=== PATIENT | male | born 1965 | race Caucasian/White ===

== ENCOUNTER 2017-10-22 13:00 | Inpatient (IN) ==
[2017-10-22] MEDS ORDERED: ONDANSETRON 4 MG/2 ML VIAL IV PRN (13:13)
[2017-10-22] MEDS ORDERED: ZALEPLON 5 MG CAPSULE PO PRN (13:13)
[2017-10-22] MEDS ORDERED: diphenhydrAMINE CAP 25 MG CAPSULE PO PRN (13:13)
[2017-10-22] MEDS ORDERED: MAGNESIUM SULF RIDER 2 GM in PREMIX 1 EACH IV PRN (13:16)
[2017-10-22] MEDS ORDERED: POTASSIUM CHLORIDE 20 MEQ TABLET PO PRN (13:16)
[2017-10-22] MEDS ORDERED: MAGNESIUM SULF RIDER 4 GM in PREMIX 1 EACH IV PRN (13:16)
[2017-10-22] MEDS ORDERED: hydrALAZINE 20 MG/1 ML VIAL IV PRN (13:18)
[2017-10-22] MEDS ORDERED: SPIRONOLACTONE 25 MG TABLET PO SCH (15:00)
[2017-10-22] MEDS ORDERED: BISACODYL 5 MG TABLET PO PRN (16:33)
[2017-10-22] MEDS ORDERED: ACETAMINOPHEN 325 MG TABLET PO PRN (16:33)
[2017-10-22] MEDS: hydrALAZINE 10 MG TABLET PO SCH ×2 (17:30→20:13)
[2017-10-22] MEDS: FUROSEMIDE 40 MG/4 ML VIAL IV SCH (17:31)
[2017-10-22 17:35] LABS: Calcium 8.5 MG/DL (8.5-10.1); Osmolality,Calculated 273.8 MOS/KG (273-304); Potassium 4.5 MMOL/L (3.5-5.1); Risk Ratio 2.46; Thyroid Stimulating Hormone 2.82 uIU/ml (0.358-3.74); VLDL CHOLESTEROL 34.6 MG/DL
[2017-10-22 18:40] LABS: Basophils % 0.3 % (0.0-0.8); Eosinophils # 0.1 10*3/uL (0.0-0.87); Eosinophils % 0.9 % (0.00-10.9); Hematocrit 40.2 VOL% (42.0-52.0); Hemoglobin 12.7 GM/DL (14.0-18.0); Immature Granulocytes Absolute 0.28 #; Lymphocytes # 2.9 10*3/uL (1.4-4.0); Lymphocytes % 21.1 % (21.2-54.2); Mean Corpuscular HGB Conc 31.6 GM/DL (32-36); Mean Corpuscular Hemoglobin 30 PG (27-34); Mean Platelet Volume 10.8 FL (9.6-12.0); Monocytes # 1.2 10*3/uL (0.11-0.8); Monocytes % 8.7 % (1.7-12.7); Neutrophils # 9.3 10*3/uL (1.4-7.4); Platelet Count 355 T/CUMM (130-400); Red Blood Count 4.23 MC/CUMM (3.8-5.5); White Blood Count 13.9 T/CUMM (4-12)
[2017-10-22] MEDS: CARVEDILOL 6.25 MG TABLET PO SCH (20:14)
[2017-10-22] MEDS ORDERED: ENOXAPARIN 40 MG/0.4 ML SYRINGE SUBCUT SCH (21:00)
[2017-10-23 05:47] LABS: Calcium 8.1 MG/DL (8.5-10.1); Osmolality,Calculated 279.4 MOS/KG (273-304); Potassium 5.3 MMOL/L (3.5-5.1)
[2017-10-23] MEDS: ALBUTEROL/IPRATROPIUM 3 ML NEB RESP TX SCH ×4 (07:36→19:50)
[2017-10-23] MEDS: NICOTINE 21 MG/24 HR PATCH TRANSDERM PRN (09:42)
[2017-10-23] MEDS: AZITHROMYCIN 250 MG TABLET PO SCH (09:43)
[2017-10-23] MEDS: metOLazone 5 MG TABLET PO SCH (09:43)
[2017-10-23] MEDS: hydrALAZINE 10 MG TABLET PO SCH ×3 (09:44→20:33)
[2017-10-23] MEDS: CARVEDILOL 6.25 MG TABLET PO SCH ×2 (09:44→20:33)
[2017-10-23] MEDS: PANTOPRAZOLE 40 MG TABLET PO SCH (09:44)
[2017-10-23] MEDS: ASPIRIN CHEW 81 MG TABLET PO SCH (09:44)
[2017-10-23] MEDS: predniSONE 20 MG TABLET PO SCH (09:44)
[2017-10-23] MEDS: FUROSEMIDE 40 MG/4 ML VIAL IV SCH ×2 (09:47→15:20)
[2017-10-24] MEDS: ALBUTEROL/IPRATROPIUM 3 ML NEB RESP TX SCH ×6 (00:16→19:03)
[2017-10-24 05:59] LABS: Basophils % 0.2 % (0.0-0.8); Eosinophils # 0.2 10*3/uL (0.0-0.87); Eosinophils % 1.6 % (0.00-10.9); Hematocrit 43.7 VOL% (42.0-52.0); Hemoglobin 13.9 GM/DL (14.0-18.0); Immature Granulocytes % 1.3 %; Immature Granulocytes Absolute 0.17 #; Lymphocytes # 2.8 10*3/uL (1.4-4.0); Lymphocytes % 21.4 % (21.2-54.2); Mean Corpuscular HGB Conc 31.8 GM/DL (32-36); Mean Corpuscular Hemoglobin 30 PG (27-34); Mean Corpuscular Volume 92.8 FL (87-102); Mean Platelet Volume 10.4 FL (9.6-12.0); Monocytes % 7.7 % (1.7-12.7); Neutrophils % 67.8 % (38.7-73.9); Platelet Count 336 T/CUMM (130-400); Red Blood Count 4.71 MC/CUMM (3.8-5.5); Red Cell Distribution Width 14.2 % (9.3-17.3); White Blood Count 13.2 T/CUMM (4-12)
[2017-10-24 06:17] LABS: Calcium 8.4 MG/DL (8.5-10.1); Osmolality,Calculated 278.7 MOS/KG (273-304); Potassium 4.1 MMOL/L (3.5-5.1)
[2017-10-24] MEDS ORDERED: diphenhydrAMINE CAP 25 MG CAPSULE PO ONE (06:33)
[2017-10-24] MEDS ORDERED: DIAZEPAM 5 MG TABLET PO ONE (06:33)
[2017-10-24] MEDS: ASPIRIN CHEW 81 MG TABLET PO SCH ×2 (06:48→11:30)
[2017-10-24] MEDS: hydrALAZINE 10 MG TABLET PO SCH ×4 (06:48→22:15)
[2017-10-24] MEDS: PANTOPRAZOLE 40 MG TABLET PO SCH ×2 (06:48→11:53)
[2017-10-24] MEDS: CARVEDILOL 6.25 MG TABLET PO SCH ×3 (06:48→22:15)
[2017-10-24] MEDS ORDERED: fentaNYL 100 MCG/2 ML VIAL ONE (07:19)
[2017-10-24] MEDS ORDERED: MIDAZOLAM 2 MG/2 ML VIAL ONE (07:19)
[2017-10-24] MEDS ORDERED: HEPARIN/NACL 0.9% 2 UNITS/ML 2,000 ML IV ONE (07:57)
[2017-10-24] MEDS ORDERED: LIDOCAINE 1% 20 ML VIAL ONE (07:57)
[2017-10-24] MEDS ORDERED: ASPIRIN EC 81 MG TABLET PO SCH (09:00)
[2017-10-24] MEDS ORDERED: GLUCAGON 1 MG VIAL IM PRN (10:28)
[2017-10-24] MEDS ORDERED: DEXTROSE 50% 25 GM/50 ML VIAL IV PRN (10:28)
[2017-10-24] MEDS ORDERED: NITROGLYCERIN SL 0.4 MG TABLET SL ONE (10:50)
[2017-10-24] MEDS: SODIUM CHLORIDE 0.9% 1,000 ML IV SCH (11:30)
[2017-10-24] MEDS: FUROSEMIDE 40 MG/4 ML VIAL IV SCH ×3 (11:31→16:33)
[2017-10-24] MEDS: AZITHROMYCIN 250 MG TABLET PO SCH (11:47)
[2017-10-24] MEDS: predniSONE 20 MG TABLET PO SCH (11:47)
[2017-10-24 13:39] LABS: Troponin I Only 0.216 NG/ML (0.00-0.045)
[2017-10-24] MEDS: NITROGLYCERIN DRIP 50 MG/250 ML BOTTLE IV SCH (15:22)
[2017-10-24 16:21] LABS: CKMB % 8.9 %; Troponin I Only 0.229 NG/ML (0.00-0.045)
[2017-10-24] MEDS: CLORAZEPATE 3.75 MG TABLET PO SCH ×2 (16:34→22:14)
[2017-10-24] MEDS: NICOTINE 21 MG/24 HR PATCH TRANSDERM PRN (16:47)
[2017-10-24] MEDS ORDERED: NITROGLYCERIN 2% OINT 1 INCH/GM PACK TOP SCH (18:00)
[2017-10-24 18:19] LABS: Troponin I Only 0.203 NG/ML (0.00-0.045)
[2017-10-24] MEDS: ATORVASTATIN 40 MG TABLET PO SCH (22:14)
[2017-10-24] MEDS: CHLORHEXIDINE 0.12% ORAL RINSE 60 ML BOTTLE SWISH/SPIT SCH (22:18)
[2017-10-25] MEDS: ALBUTEROL/IPRATROPIUM 3 ML NEB RESP TX SCH ×7 (00:07→23:43)
[2017-10-25 03:58] LABS: ABG Base Excess 10.3 MMOL/L (-2.5-2.5); ABG HCO3 33.9 MMOL/L (20-26); ABG Oxygen Saturation 94.8 % (95-100); ABG PCO2 51.3 MM HG (35-48); ABG PH 7.457 (7.35-7.45); ABG PO2 72.3 MM HG (80-95); Allen Test Positive
[2017-10-25 06:46] LABS: Basophils % 0.3 % (0.0-0.8); Eosinophils # 0.1 10*3/uL (0.0-0.87); Eosinophils % 0.8 % (0.00-10.9); Hematocrit 42.9 VOL% (42.0-52.0); Hemoglobin 14.3 GM/DL (14.0-18.0); Immature Granulocytes Absolute 0.14 #; Mean Corpuscular HGB Conc 33.3 GM/DL (32-36); Mean Corpuscular Hemoglobin 30 PG (27-34); Mean Corpuscular Volume 88.8 FL (87-102); Mean Platelet Volume 10.6 FL (9.6-12.0); Monocytes % 7.2 % (1.7-12.7); Neutrophils # 9.9 10*3/uL (1.4-7.4); Neutrophils % 69.7 % (38.7-73.9); Platelet Count 341 T/CUMM (130-400); Red Blood Count 4.83 MC/CUMM (3.8-5.5); Red Cell Distribution Width 14.2 % (9.3-17.3); White Blood Count 14.3 T/CUMM (4-12)
[2017-10-25 07:11] LABS: Calcium 8.5 MG/DL (8.5-10.1); Osmolality,Calculated 280.7 MOS/KG (273-304); Potassium 3.7 MMOL/L (3.5-5.1)
[2017-10-25 07:12] LABS: Calcium 8.6 MG/DL (8.5-10.1); Osmolality,Calculated 278.8 MOS/KG (273-304); Potassium 3.7 MMOL/L (3.5-5.1)
[2017-10-25 07:14] LABS: Troponin I Only 0.301 NG/ML (0.00-0.045)
[2017-10-25 07:15] LABS: Albumin 3.4 G/DL (3.4-5.0); Bilirubin,Total 0.9 MG/DL (0.2-1.0); Calcium 8.4 MG/DL (8.5-10.1); Osmolality,Calculated 281.7 MOS/KG (273-304); Potassium 3.7 MMOL/L (3.5-5.1); Total Protein 6.5 G/DL (6.4-8.3)
[2017-10-25] MEDS: FUROSEMIDE 40 MG/4 ML VIAL IV SCH ×2 (07:51→15:44)
[2017-10-25] MEDS: CLORAZEPATE 7.5 MG TABLET PO SCH ×4 (08:13→20:31)
[2017-10-25] MEDS: hydrALAZINE 10 MG TABLET PO SCH ×2 (08:13→15:43)
[2017-10-25] MEDS: AZITHROMYCIN 250 MG TABLET PO SCH (08:13)
[2017-10-25] MEDS: ASPIRIN CHEW 81 MG TABLET PO SCH (08:13)
[2017-10-25] MEDS: predniSONE 20 MG TABLET PO SCH (08:14)
[2017-10-25] MEDS: PANTOPRAZOLE 40 MG TABLET PO SCH (08:14)
[2017-10-25] MEDS: CARVEDILOL 6.25 MG TABLET PO SCH ×2 (08:14→20:31)
[2017-10-25] MEDS: CHLORHEXIDINE 0.12% ORAL RINSE 60 ML BOTTLE SWISH/SPIT SCH ×2 (10:58→20:32)
[2017-10-25] MEDS: SODIUM CHLORIDE 0.9% 1,000 ML IV SCH (10:59)
[2017-10-25] MEDS: NITROGLYCERIN DRIP 50 MG/250 ML BOTTLE IV SCH (15:44)
[2017-10-25] MEDS: hydrALAZINE 25 MG TABLET PO SCH ×2 (15:45→20:31)
[2017-10-25] MEDS: ATORVASTATIN 40 MG TABLET PO SCH (20:31)
[2017-10-26 04:29] LABS: Calcium 7.8 MG/DL (8.5-10.1); Osmolality,Calculated 286.4 MOS/KG (273-304); Potassium 3.5 MMOL/L (3.5-5.1)
[2017-10-26] MEDS: ALBUTEROL/IPRATROPIUM 3 ML NEB RESP TX SCH ×5 (04:36→19:29)
[2017-10-26] MEDS: FUROSEMIDE 40 MG/4 ML VIAL IV SCH ×2 (08:34→15:47)
[2017-10-26] MEDS: CHLORHEXIDINE 0.12% ORAL RINSE 60 ML BOTTLE SWISH/SPIT SCH ×2 (08:35→21:03)
[2017-10-26] MEDS: PANTOPRAZOLE 40 MG TABLET PO SCH (08:35)
[2017-10-26] MEDS: predniSONE 20 MG TABLET PO SCH (08:35)
[2017-10-26] MEDS: CARVEDILOL 6.25 MG TABLET PO SCH ×2 (08:35→21:02)
[2017-10-26] MEDS: CLORAZEPATE 7.5 MG TABLET PO SCH ×4 (08:35→21:02)
[2017-10-26] MEDS: ASPIRIN CHEW 81 MG TABLET PO SCH (08:35)
[2017-10-26] MEDS: hydrALAZINE 25 MG TABLET PO SCH ×3 (08:35→21:02)
[2017-10-26] MEDS: SODIUM CHLORIDE 0.9% 1,000 ML IV SCH (12:11)
[2017-10-26] MEDS: NICOTINE 21 MG/24 HR PATCH TRANSDERM PRN (13:42)
[2017-10-26] MEDS: CHLORHEXIDINE 4% SOLN 118 ML BOTTLE TOP SCH ×2 (15:21→22:52)
[2017-10-26] MEDS: NITROGLYCERIN DRIP 50 MG/250 ML BOTTLE IV SCH (15:21)
[2017-10-26] MEDS: ATORVASTATIN 40 MG TABLET PO SCH (21:02)
[2017-10-27] MEDS: ALBUTEROL/IPRATROPIUM 3 ML NEB RESP TX SCH ×6 (00:18→19:14)
[2017-10-27 03:07] LABS: Allen Test Positive
[2017-10-27 03:08] LABS: ABG Base Excess 10.8 MMOL/L (-2.5-2.5); ABG HCO3 34.5 MMOL/L (20-26); ABG PH 7.412 (7.35-7.45); ABG PO2 75.3 MM HG (80-95); ABG TCO2 33.4 MMOL/L (23-27)
[2017-10-27] MEDS: CHLORHEXIDINE 4% SOLN 118 ML BOTTLE TOP SCH ×2 (05:00→12:46)
[2017-10-27] MEDS ORDERED: PAPAVERINE 60 MG/2 ML VIAL ONE (05:24)
[2017-10-27] MEDS ORDERED: VANCOMYCIN 1,000 MG VIAL ONE (05:25)
[2017-10-27] MEDS ORDERED: ALBUTEROL 2.5 MG/3 ML NEB RESP TX ONE (05:30)
[2017-10-27] MEDS ORDERED: DIAZEPAM 5 MG TABLET PO ONE (05:30)
[2017-10-27] MEDS ORDERED: IPRATROPIUM 500 MCG/2.5 ML NEB RESP TX ONE (05:30)
[2017-10-27 05:31] LABS: Basophils # 0.1 10*3/uL (0.0-0.2); Basophils % 0.4 % (0.0-0.8); Eosinophils # 0.3 10*3/uL (0.0-0.87); Eosinophils % 2.2 % (0.00-10.9); Hematocrit 38.8 VOL% (42.0-52.0); Hemoglobin 12.8 GM/DL (14.0-18.0); Immature Granulocytes % 0.6 %; Immature Granulocytes Absolute 0.08 #; Lymphocytes # 2.4 10*3/uL (1.4-4.0); Lymphocytes % 19.2 % (21.2-54.2); Mean Corpuscular Hemoglobin 30 PG (27-34); Mean Corpuscular Volume 91.5 FL (87-102); Mean Platelet Volume 10.8 FL (9.6-12.0); Neutrophils # 8.7 10*3/uL (1.4-7.4); Neutrophils % 69.6 % (38.7-73.9); Platelet Count 246 T/CUMM (130-400); Red Blood Count 4.24 MC/CUMM (3.8-5.5); Red Cell Distribution Width 14.2 % (9.3-17.3); White Blood Count 12.5 T/CUMM (4-12)
[2017-10-27 05:38] LABS: PT Patient Result 10.3 SECS; Partial Thromboplastin Time 25.5 SECS (0-40)
[2017-10-27] MEDS: hydrALAZINE 25 MG TABLET PO SCH ×2 (05:51→09:00)
[2017-10-27] MEDS: CHLORHEXIDINE 0.12% ORAL RINSE 60 ML BOTTLE SWISH/SPIT SCH ×3 (05:51→23:40)
[2017-10-27] MEDS: CARVEDILOL 6.25 MG TABLET PO SCH ×2 (05:51→09:00)
[2017-10-27] MEDS ORDERED: CEFUROXIME INJ 1,500 MG in SYRINGE 1 EACH IV ONE (06:00)
[2017-10-27 06:02] LABS: Osmolality,Calculated 283.4 MOS/KG (273-304); Potassium 3.5 MMOL/L (3.5-5.1)
[2017-10-27] MEDS ORDERED: SUFentanil 250 MCG/5 ML AMP ONE (06:06)
[2017-10-27] MEDS ORDERED: PANTOPRAZOLE 40 MG VIAL IV ONE (06:30)
[2017-10-27] MEDS ORDERED: PHENYLEPHRINE DRIP 20 MG/250 ML PREMIX IV ONE ×2 (06:50→09:07)
[2017-10-27 07:41] LABS: ABG Base Excess 7.4 MMOL/L (-2.5-2.5); ABG HCO3 31.2 MMOL/L (20-26); ABG PCO2 64.4 MM HG (35-48); ABG PH 7.348 (7.35-7.45); ABG TCO2 31.5 MMOL/L (23-27); Glucose Heart Surgery 105 MG/DL (74-106); Ionized Calcium Arterial 1.12 MMOL/L (1.21-1.46); PCO2 Patient Temp Arterial 64.4 MMHG; PH Patient Temp Arterial 7.348; Patient Temperature 37 CELCIUS; Potassium Heart/CVR 3.2 MMOL/L (3.5-5.1); Sodium Heart/CVR 138 MMOL/L (135-145)
[2017-10-27] MEDS: FUROSEMIDE 40 MG/4 ML VIAL IV SCH (08:00)
[2017-10-27] MEDS ORDERED: PHENYLEPHRINE DRIP 40 MG/250 ML PREMIX IV ONE (08:11)
[2017-10-27] MEDS ORDERED: NITROPRUSSIDE 50 MG/2 ML VIAL ONE (08:11)
[2017-10-27] MEDS ORDERED: POTASSIUM CHLORIDE RIDER 100 ML IV ONE (08:12)
[2017-10-27] MEDS ORDERED: CALCIUM CHLORIDE 1,000 MG/10 ML SYRINGE IV ONE (08:12)
[2017-10-27] MEDS: ASPIRIN CHEW 81 MG TABLET PO SCH (09:00)
[2017-10-27] MEDS: PANTOPRAZOLE 40 MG TABLET PO SCH (09:00)
[2017-10-27] MEDS: predniSONE 20 MG TABLET PO SCH (09:00)
[2017-10-27] MEDS: CLORAZEPATE 7.5 MG TABLET PO SCH (09:00)
[2017-10-27] MEDS ORDERED: CALCIUM CHLORIDE 1,000 MG/10 ML VIAL IV ONE (09:07)
[2017-10-27] MEDS ORDERED: VECURONIUM 10 MG VIAL IV ONE (09:08)
[2017-10-27] MEDS ORDERED: HEPARIN/NACL 0.9% 2 UNITS/ML 1,000 ML IV ONE (09:08)
[2017-10-27] MEDS ORDERED: NITROGLYCERIN DRIP 50 MG/250 ML BOTTLE IV ONE (09:08)
[2017-10-27] MEDS ORDERED: MIDAZOLAM 10 MG/2 ML VIAL ONE (09:08)
[2017-10-27] MEDS ORDERED: ETOMIDATE 40 MG/20 ML VIAL IV ONE (09:08)
[2017-10-27] MEDS ORDERED: MINERAL OIL/PETROLATUM OPH OINT 3.5 GM TUBE ONE (09:08)
[2017-10-27] MEDS ORDERED: LACTATED RINGERS 1,000 ML IV ONE (09:09)
[2017-10-27] MEDS ORDERED: SODIUM CHLORIDE 0.9% 250 ML IV ONE (09:09)
[2017-10-27] MEDS ORDERED: SODIUM CHLORIDE 0.9% 100 ML IV ONE (09:09)
[2017-10-27] MEDS ORDERED: SODIUM CHLORIDE 0.9% 1,000 ML IV ONE (09:09)
[2017-10-27 09:16] LABS: Hematocrit Heart Surgery 30.1 PERCENT (42-52); Hemoglobin Heart Surgery 9.7 G/DL (14.0-18.0); PCO2 Patient Temp Venous 56.3 MM HG; PH Patient Temp Venous 7.387; PO2 Patient Temp Venous 40.2 MM HG; Potassium Heart/CVR 3.4 MMOL/L (3.5-5.1); VBG Base Excess 7.6 MEQ/L (0-4); VBG Oxygen Saturation 79.2 %; VBG PH 7.358; VBG PO2 46.1 MMHG (17-40)
[2017-10-27] MEDS ORDERED: TRANEXAMIC ACID 1,000 MG/10 ML VIAL IV ONE (09:20)
[2017-10-27 09:40] LABS: Hematocrit Heart Surgery 28.1 PERCENT (42-52); Hemoglobin Heart Surgery 9.1 G/DL (14.0-18.0); PH Patient Temp Venous 7.493; PO2 Patient Temp Venous 37.6 MM HG; Potassium Heart/CVR 3.6 MMOL/L (3.5-5.1); VBG Base Excess 8.4 MEQ/L (0-4); VBG HCO3 31.9 MEQ/L (24-28); VBG PCO2 48.5 MMHG (41-51); VBG PH 7.448; VBG PO2 46.3 MMHG (17-40)
[2017-10-27 10:09] LABS: Hematocrit Heart Surgery 29.2 PERCENT (42-52); Hemoglobin Heart Surgery 9.4 G/DL (14.0-18.0); PCO2 Patient Temp Venous 35.9 MM HG; PH Patient Temp Venous 7.554; PO2 Patient Temp Venous 35.6 MM HG; Potassium Heart/CVR 3.6 MMOL/L (3.5-5.1); VBG HCO3 32.5 MEQ/L (24-28); VBG Oxygen Saturation 83.4 %; VBG PCO2 41.4 MMHG (41-51); VBG PH 7.509; VBG PO2 43.9 MMHG (17-40)
[2017-10-27] MEDS: SODIUM CHLORIDE 0.9% 1,000 ML IV SCH (10:30)
[2017-10-27] MEDS ORDERED: ALBUMIN 25% 25 GM/100 ML VIAL IV ONE (11:07)
[2017-10-27] MEDS ORDERED: PROTAMINE SULFATE 250 MG/25 ML VIAL IV ONE (11:07)
[2017-10-27] MEDS ORDERED: MAGNESIUM SULFATE 1 GM/2 ML VIAL ONE (11:07)
[2017-10-27] MEDS ORDERED: SODIUM BICARBONATE 50 MEQ/50 ML SYRINGE IV ONE (11:07)
[2017-10-27] MEDS ORDERED: DEXTROSE 5% KCL 20 MEQ 20 MEQ/1,000 ML BAG IV ONE (11:07)
[2017-10-27] MEDS ORDERED: HEPARIN 10,000 UNIT/10 ML VIAL ONE (11:08)
[2017-10-27] MEDS ORDERED: POTASSIUM CHLORIDE 20 MEQ/10 ML VIAL ONE (11:08)
[2017-10-27] MEDS ORDERED: FUROSEMIDE 20 MG/2 ML VIAL ONE (11:08)
[2017-10-27] MEDS ORDERED: MANNITOL 12.5 GM/50 ML VIAL IV ONE (11:08)
[2017-10-27] MEDS ORDERED: methylPREDNISolone SOD SUC 1,000 MG/8 ML VIAL ONE (11:08)
[2017-10-27 11:19] LABS: ABG Base Excess 5.3 MMOL/L (-2.5-2.5); ABG HCO3 29.3 MMOL/L (20-26); ABG Oxygen Saturation 99.9 % (95-100); ABG PCO2 54.1 MM HG (35-48); ABG PH 7.376 (7.35-7.45); Glucose Heart Surgery 114 MG/DL (74-106); Hematocrit Heart Surgery 30.3 PERCENT (42-52); Hemoglobin Heart Surgery 9.8 G/DL (14.0-18.0); Ionized Calcium Arterial 1.17 MMOL/L (1.21-1.46); PCO2 Patient Temp Arterial 54.1 MMHG; PH Patient Temp Arterial 7.376; Patient Temperature 37 CELCIUS; Sodium Heart/CVR 134 MMOL/L (135-145)
[2017-10-27] MEDS ORDERED: PROTAMINE SULFATE 50 MG/5 ML VIAL IV ONE ×2 (12:28→12:37)
[2017-10-27] MEDS ORDERED: LACTATED RINGERS 250 ML IV PRN (12:30)
[2017-10-27] MEDS ORDERED: VECURONIUM 10 MG VIAL IV PRN ×2 (12:30)
[2017-10-27] MEDS ORDERED: INSULIN REGULAR DRIP 100 ML IV SCH (12:30)
[2017-10-27] MEDS ORDERED: INSULIN REGULAR 100 UNIT/ML IV PRN (12:30)
[2017-10-27] MEDS ORDERED: MORPHINE 10 MG/1 ML VIAL IV PRN (12:30)
[2017-10-27] MEDS ORDERED: CALCIUM CHLORIDE 1,000 MG/10 ML SYRINGE IV PRN (12:30)
[2017-10-27] MEDS ORDERED: NITROPRUSSIDE 100 MG in DEXTROSE 5% 250 ML IV PRN (12:30)
[2017-10-27] MEDS ORDERED: MIDAZOLAM 2 MG/2 ML VIAL IV PRN (12:30)
[2017-10-27] MEDS ORDERED: PHENYLEPHRINE DRIP 40 MG/250 ML PREMIX IV PRN (12:30)
[2017-10-27] MEDS ORDERED: POTASSIUM CHLORIDE RIDER 10 MEQ in PREMIX 1 EACH IV PRN (12:30)
[2017-10-27] MEDS ORDERED: INSULIN REGULAR 100 UNIT/ML IV ONE (12:30)
[2017-10-27] MEDS ORDERED: ACETAMINOPHEN 650 MG SUPP RECTAL PRN (12:30)
[2017-10-27] MEDS ORDERED: MAGNESIUM SULF RIDER 2 GM in PREMIX 1 EACH IV PRN (12:30)
[2017-10-27] MEDS ORDERED: MIDAZOLAM 10 MG/2 ML VIAL IV PRN (12:30)
[2017-10-27] MEDS ORDERED: SODIUM CHLORIDE 0.45% 1,000 ML IV SCH ×2 (12:30)
[2017-10-27] MEDS ORDERED: MAGNESIUM SULF RIDER 4 GM in PREMIX 1 EACH IV PRN (12:30)
[2017-10-27] MEDS ORDERED: DEXTROSE 50% 25 GM/50 ML VIAL IV PRN ×2 (12:30)
[2017-10-27 12:34] LABS: ABG HCO3 28.9 MMOL/L (20-26); ABG Oxygen Saturation 98.6 % (95-100); ABG TCO2 30.9 MMOL/L (23-27); Glucose Heart Surgery 124 MG/DL (74-106); Hematocrit Heart Surgery 32.5 PERCENT (42-52); Hemoglobin Heart Surgery 10.5 G/DL (14.0-18.0); Potassium Heart/CVR 4.1 MMOL/L (3.5-5.1)
[2017-10-27 12:36] LABS: Basophils # 0.1 10*3/uL (0.0-0.2); Basophils % 0.2 % (0.0-0.8); Eosinophils # 0.1 10*3/uL (0.0-0.87); Eosinophils % 0.4 % (0.00-10.9); Hematocrit 32.1 VOL% (42.0-52.0); Immature Granulocytes Absolute 0.59 #; Lymphocytes # 1.4 10*3/uL (1.4-4.0); Lymphocytes % 4.7 % (21.2-54.2); Mean Corpuscular HGB Conc 31.8 GM/DL (32-36); Mean Corpuscular Hemoglobin 30 PG (27-34); Mean Corpuscular Volume 93.9 FL (87-102); Mean Platelet Volume 10.6 FL (9.6-12.0); Monocytes # 1.4 10*3/uL (0.11-0.8); Monocytes % 4.9 % (1.7-12.7); Neutrophils % 87.8 % (38.7-73.9); Red Blood Count 3.42 MC/CUMM (3.8-5.5); Red Cell Distribution Width 14.2 % (9.3-17.3)
[2017-10-27 12:37] LABS: ABG PCO2 70.2 MM HG (35-48)
[2017-10-27 12:44] LABS: Hemoglobin 10.2 GM/DL (14.0-18.0); Platelet Count 222 T/CUMM (130-400); White Blood Count 29.6 T/CUMM (4-12)
[2017-10-27 12:45] LABS: INR 1.1; PT Patient Result 11.6 SECS; Partial Thromboplastin Time 27.3 SECS (0-40)
[2017-10-27] MEDS: POTASSIUM CHLORIDE RIDER 20 MEQ in PREMIX 1 EACH IV PRN (12:45)
[2017-10-27 12:55] LABS: Band Neutrophils 1 % (0-10); Eosinophils 1 % (0-10); Giant Platelets Few; Hypochromasia 1+; Lymphocytes 5 % (20-55); Ovalocytes Slight; Platelet Estimate Adequate; Segmented Neutrophils 90 % (50-85); Total Cells Counted 100
[2017-10-27] MEDS: methylPREDNISolone SOD SUC 40 MG/1 ML VIAL IV SCH ×2 (13:05→18:20)
[2017-10-27] MEDS: KETOROLAC 30 MG/1 ML VIAL IV SCH ×2 (13:15→18:15)
[2017-10-27 13:18] LABS: Bilirubin,Total 0.8 MG/DL (0.2-1.0); Calcium 7.9 MG/DL (8.5-10.1); Osmolality,Calculated 281.7 MOS/KG (273-304); Potassium 4.2 MMOL/L (3.5-5.1)
[2017-10-27 13:40] LABS: CKMB % 11.8 %
[2017-10-27 13:47] LABS: ABG PCO2 65.8 MM HG (35-48); ABG PH 7.299 (7.35-7.45); ABG PO2 98.2 MM HG (80-95); ABG TCO2 29.4 MMOL/L (23-27); Glucose Heart Surgery 170 MG/DL (74-106); Hematocrit Heart Surgery 33.5 PERCENT (42-52); Hemoglobin Heart Surgery 10.9 G/DL (14.0-18.0); Potassium Heart/CVR 5.2 MMOL/L (3.5-5.1)
[2017-10-27 13:48] LABS: Troponin I Only 10.9 NG/ML (0.00-0.045)
[2017-10-27 14:44] LABS: ABG Base Excess 4.2 MMOL/L (-2.5-2.5); ABG HCO3 32.1 MMOL/L (20-26); ABG Oxygen Saturation 95.2 % (95-100); ABG PH 7.305 (7.35-7.45); ABG PO2 90.3 MM HG (80-95); ABG TCO2 34.1 MMOL/L (23-27); Glucose Heart Surgery 211 MG/DL (74-106); Hemoglobin Heart Surgery 11.5 G/DL (14.0-18.0); Potassium Heart/CVR 5.4 MMOL/L (3.5-5.1)
[2017-10-27] MEDS ORDERED: FUROSEMIDE 40 MG/4 ML VIAL IV ONE (16:01)
[2017-10-27 16:03] LABS: ABG Base Excess 3.1 MMOL/L (-2.5-2.5); ABG HCO3 30.5 MMOL/L (20-26); ABG Oxygen Saturation 95.7 % (95-100); ABG PCO2 60.5 MM HG (35-48); ABG PO2 90.7 MM HG (80-95); ABG TCO2 32.3 MMOL/L (23-27); Glucose Heart Surgery 185 MG/DL (74-106); Hemoglobin Heart Surgery 11.6 G/DL (14.0-18.0); Potassium Heart/CVR 5.3 MMOL/L (3.5-5.1)
[2017-10-27] MEDS: ALBUMIN 5% 12.5 GM in PREMIX 1 EACH IV PRN ×2 (16:05→16:17)
[2017-10-27] MEDS ORDERED: AMINOPHYLLINE IV ONE (17:00)
[2017-10-27] MEDS ORDERED: SODIUM CHLORIDE 0.9% IV ONE (17:00)
[2017-10-27] MEDS ORDERED: AMINOPHYLLINE 500 MG in SODIUM CHLORIDE 0.9% 480 ML IV SCH (17:30)
[2017-10-27 18:02] LABS: ABG Base Excess 4.2 MMOL/L (-2.5-2.5); ABG HCO3 28.1 MMOL/L (20-26); ABG Oxygen Saturation 95.1 % (95-100); ABG PCO2 57.3 MM HG (35-48); ABG PH 7.343 (7.35-7.45); ABG PO2 77.4 MM HG (80-95); ABG TCO2 28.7 MMOL/L (23-27); Glucose Heart Surgery 159 MG/DL (74-106); Hematocrit Heart Surgery 29.4 PERCENT (42-52); Hemoglobin Heart Surgery 9.5 G/DL (14.0-18.0); Potassium Heart/CVR 4.4 MMOL/L (3.5-5.1)
[2017-10-27 19:05] LABS: ABG Base Excess 4.6 MMOL/L (-2.5-2.5); ABG HCO3 28.5 MMOL/L (20-26); ABG Oxygen Saturation 96.5 % (95-100); ABG PCO2 54.5 MM HG (35-48); ABG PH 7.364 (7.35-7.45); ABG PO2 84.3 MM HG (80-95); ABG TCO2 28.6 MMOL/L (23-27); Glucose Heart Surgery 152 MG/DL (74-106); Hematocrit Heart Surgery 28.9 PERCENT (42-52); Hemoglobin Heart Surgery 9.3 G/DL (14.0-18.0); Potassium Heart/CVR 4.3 MMOL/L (3.5-5.1)
[2017-10-27 19:57] LABS: ABG Oxygen Saturation 96.2 % (95-100); ABG PH 7.365 (7.35-7.45); ABG PO2 82.5 MM HG (80-95); ABG TCO2 27.9 MMOL/L (23-27); Glucose Heart Surgery 151 MG/DL (74-106); Hematocrit Heart Surgery 28.8 PERCENT (42-52); Hemoglobin Heart Surgery 9.3 G/DL (14.0-18.0); Potassium Heart/CVR 4.1 MMOL/L (3.5-5.1)
[2017-10-27] MEDS: CEFUROXIME INJ 1,500 MG in SYRINGE 1 EACH IV SCH (20:50)
[2017-10-27 20:51] LABS: ABG Base Excess 4.5 MMOL/L (-2.5-2.5); ABG HCO3 28.4 MMOL/L (20-26); ABG Oxygen Saturation 97.3 % (95-100); ABG PCO2 50.7 MM HG (35-48); ABG PH 7.385 (7.35-7.45); ABG PO2 85.8 MM HG (80-95); ABG TCO2 27.9 MMOL/L (23-27); Glucose Heart Surgery 147 MG/DL (74-106); Hematocrit Heart Surgery 28.4 PERCENT (42-52); Hemoglobin Heart Surgery 9.2 G/DL (14.0-18.0); Potassium Heart/CVR 4.1 MMOL/L (3.5-5.1)
[2017-10-27] MEDS: ONDANSETRON 4 MG/2 ML VIAL IV PRN (22:16)
[2017-10-27 22:24] LABS: CKMB % 9.5 %
[2017-10-27 23:02] LABS: Troponin I Only 5.34 NG/ML (0.00-0.045)
[2017-10-28] MEDS: ALBUTEROL/IPRATROPIUM 3 ML NEB RESP TX SCH ×7 (00:04→23:02)
[2017-10-28] MEDS ORDERED: FUROSEMIDE 40 MG/4 ML VIAL IV ONE (00:53)
[2017-10-28] MEDS ORDERED: FUROSEMIDE 40 MG/4 ML VIAL ONE (01:01)
[2017-10-28] MEDS: KETOROLAC 30 MG/1 ML VIAL IV SCH ×5 (01:10→21:18)
[2017-10-28] MEDS: methylPREDNISolone SOD SUC 40 MG/1 ML VIAL IV SCH ×5 (01:11→23:42)
[2017-10-28 04:14] LABS: ABG Base Excess 3.5 MMOL/L (-2.5-2.5); ABG HCO3 27.5 MMOL/L (20-26); ABG Oxygen Saturation 96.2 % (95-100); ABG PCO2 54.9 MM HG (35-48); ABG PH 7.346 (7.35-7.45); ABG PO2 82.9 MM HG (80-95); ABG TCO2 28.1 MMOL/L (23-27); Glucose Heart Surgery 164 MG/DL (74-106); Hematocrit Heart Surgery 25.7 PERCENT (42-52); Hemoglobin Heart Surgery 8.3 G/DL (14.0-18.0); Potassium Heart/CVR 3.9 MMOL/L (3.5-5.1)
[2017-10-28 04:18] LABS: Basophils % 0.1 % (0.0-0.8); Hematocrit 25.3 VOL% (42.0-52.0); Hemoglobin 8.1 GM/DL (14.0-18.0); Immature Granulocytes Absolute 0.26 #; Lymphocytes # 0.7 10*3/uL (1.4-4.0); Lymphocytes % 2.6 % (21.2-54.2); Mean Corpuscular Hemoglobin 30 PG (27-34); Mean Corpuscular Volume 94.4 FL (87-102); Monocytes # 1.4 10*3/uL (0.11-0.8); Monocytes % 5.7 % (1.7-12.7); Neutrophils # 22.9 10*3/uL (1.4-7.4); Neutrophils % 90.6 % (38.7-73.9); Platelet Count 150 T/CUMM (130-400); Red Blood Count 2.68 MC/CUMM (3.8-5.5); Red Cell Distribution Width 14.3 % (9.3-17.3); White Blood Count 25.3 T/CUMM (4-12)
[2017-10-28 04:41] LABS: Albumin 3.3 G/DL (3.4-5.0); Bilirubin,Direct 0.18 MG/DL (0.0-0.20); Bilirubin,Total 0.6 MG/DL (0.2-1.0); Calcium 7.5 MG/DL (8.5-10.1); Osmolality,Calculated 280.1 MOS/KG (273-304); Potassium 3.8 MMOL/L (3.5-5.1); Total Protein 5.2 G/DL (6.4-8.3)
[2017-10-28 04:45] LABS: Troponin I Only 3.96 NG/ML (0.00-0.045)
[2017-10-28] MEDS: ONDANSETRON 4 MG/2 ML VIAL IV PRN ×4 (04:56→23:43)
[2017-10-28] MEDS: POTASSIUM CHLORIDE RIDER 20 MEQ in PREMIX 1 EACH IV PRN (05:23)
[2017-10-28 07:05] LABS: Band Neutrophils 2 % (0-10); Giant Platelets Few; Hypochromasia 1+; Lymphocytes 3 % (20-55); Ovalocytes Slight; Platelet Estimate Normal; Segmented Neutrophils 90 % (50-85); Total Cells Counted 100
[2017-10-28] MEDS ORDERED: INSULIN REGULAR 100 UNIT/ML SUBCUT SCH (08:00)
[2017-10-28] MEDS: CEFUROXIME INJ 1,500 MG in SYRINGE 1 EACH IV SCH ×2 (08:00→21:17)
[2017-10-28 08:13] LABS: ABG Base Excess 5.1 MMOL/L (-2.5-2.5); ABG Oxygen Saturation 90.9 % (95-100); ABG PH 7.397 (7.35-7.45); ABG PO2 59.5 MM HG (80-95); ABG TCO2 28.8 MMOL/L (23-27); Glucose Heart Surgery 148 MG/DL (74-106); Hematocrit Heart Surgery 24.1 PERCENT (42-52); Hemoglobin Heart Surgery 7.7 G/DL (14.0-18.0); Potassium Heart/CVR 4.2 MMOL/L (3.5-5.1)
[2017-10-28] MEDS ORDERED: GLUCAGON 1 MG VIAL IM PRN ×2 (09:38)
[2017-10-28] MEDS ORDERED: MAGNESIUM SULF RIDER 2 GM in PREMIX 1 EACH IV PRN (09:38)
[2017-10-28] MEDS ORDERED: DEXTROSE 50% 25 GM/50 ML VIAL IV PRN ×2 (09:38)
[2017-10-28] MEDS ORDERED: MAGNESIUM HYDROXIDE SUSP 30 ML UDCUP PO PRN (09:38)
[2017-10-28] MEDS ORDERED: POTASSIUM CHLORIDE 20 MEQ TABLET PO PRN (09:38)
[2017-10-28] MEDS ORDERED: SODIUM CHLOR 0.45% KCL 20 MEQ 20 MEQ/1,000 ML BAG IV SCH (09:38)
[2017-10-28] MEDS ORDERED: ALBUTEROL 2.5 MG/3 ML NEB RESP TX PRN (09:38)
[2017-10-28] MEDS ORDERED: MAGNESIUM SULF RIDER 4 GM in PREMIX 1 EACH IV PRN (09:38)
[2017-10-28] MEDS: DOCUSATE SODIUM 100 MG CAPSULE PO SCH (10:22)
[2017-10-28] MEDS: ASPIRIN EC 325 MG TABLET PO SCH (10:22)
[2017-10-28] MEDS: THEOPHYLLINE ER (24 HR) 400 MG CAPSULE PO SCH (10:22)
[2017-10-28] MEDS: FERROUS SULFATE 325 MG TABLET PO SCH (10:22)
[2017-10-28] MEDS: AMIODARONE 200 MG TABLET PO SCH ×2 (10:22→21:17)
[2017-10-28] MEDS: LISINOPRIL 10 MG TABLET PO SCH (10:23)
[2017-10-28] MEDS: NICOTINE 21 MG/24 HR PATCH TRANSDERM SCH (10:23)
[2017-10-28] MEDS: PANTOPRAZOLE 40 MG TABLET PO SCH (10:23)
[2017-10-28] MEDS: CHLORHEXIDINE 0.12% ORAL RINSE 60 ML BOTTLE SWISH/SPIT SCH ×2 (10:36→21:18)
[2017-10-28] MEDS: oxyCODONE/ACETAMINOPHEN 5-325 MG TABLET PO PRN ×2 (12:59→23:43)
[2017-10-28] MEDS: CLORAZEPATE 7.5 MG TABLET PO SCH ×2 (14:57→21:17)
[2017-10-28] MEDS: MORPHINE 10 MG/1 ML VIAL IV PRN ×2 (16:16→18:49)
[2017-10-28] MEDS: WARFARIN 5 MG TABLET PO SCH (17:40)
[2017-10-28] MEDS: CARVEDILOL 6.25 MG TABLET PO SCH (21:17)
[2017-10-28] MEDS: ROSUVASTATIN 20 MG TABLET PO SCH (21:17)
[2017-10-28] MEDS: ALUMINUM/MAGNES/SIMETH MAX STR 30 ML UDCUP PO PRN (23:42)
[2017-10-29] MEDS: ALBUTEROL/IPRATROPIUM 3 ML NEB RESP TX SCH ×6 (02:49→23:18)
[2017-10-29] MEDS: KETOROLAC 30 MG/1 ML VIAL IV SCH ×4 (04:20→21:41)
[2017-10-29] MEDS ORDERED: FUROSEMIDE 40 MG/4 ML VIAL IV ONE (06:00)
[2017-10-29] MEDS: ALUMINUM/MAGNES/SIMETH MAX STR 30 ML UDCUP PO PRN ×2 (06:23→23:27)
[2017-10-29] MEDS: oxyCODONE/ACETAMINOPHEN 5-325 MG TABLET PO PRN ×2 (06:23→13:01)
[2017-10-29] MEDS: methylPREDNISolone SOD SUC 40 MG/1 ML VIAL IV SCH ×3 (06:26→19:10)
[2017-10-29 06:56] LABS: PT Patient Result 10.2 SECS
[2017-10-29 07:26] LABS: Albumin 2.8 G/DL (3.4-5.0); Bilirubin,Direct 0.16 MG/DL (0.0-0.20); Bilirubin,Indirect 0.2 MG/DL (0.0-1.0); Bilirubin,Total 0.4 MG/DL (0.2-1.0); Calcium 7.6 MG/DL (8.5-10.1); Total Protein 5.1 G/DL (6.4-8.3)
[2017-10-29 07:27] LABS: CKMB % 3.2 %; Osmolality,Calculated 274.7 MOS/KG (273-304); Potassium 4.2 MMOL/L (3.5-5.1)
[2017-10-29 07:28] LABS: Troponin I Only 1.46 NG/ML (0.00-0.045)
[2017-10-29] MEDS ORDERED: TIOTROPIUM BR IH SCH (09:00)
[2017-10-29] MEDS ORDERED: OLODATEROL HCL IH SCH (09:00)
[2017-10-29] MEDS: CEFUROXIME INJ 1,500 MG in SYRINGE 1 EACH IV SCH ×2 (09:22→22:21)
[2017-10-29] MEDS: NICOTINE 21 MG/24 HR PATCH TRANSDERM SCH (09:23)
[2017-10-29] MEDS: CHLORHEXIDINE 0.12% ORAL RINSE 60 ML BOTTLE SWISH/SPIT SCH ×2 (09:24→21:59)
[2017-10-29] MEDS: THEOPHYLLINE ER (24 HR) 400 MG CAPSULE PO SCH (09:24)
[2017-10-29] MEDS: CARVEDILOL 6.25 MG TABLET PO SCH ×2 (09:24→21:18)
[2017-10-29] MEDS: DOCUSATE SODIUM 100 MG CAPSULE PO SCH (09:24)
[2017-10-29] MEDS: PANTOPRAZOLE 40 MG TABLET PO SCH (09:24)
[2017-10-29] MEDS: AMIODARONE 200 MG TABLET PO SCH ×2 (09:24→21:18)
[2017-10-29] MEDS: ASPIRIN EC 325 MG TABLET PO SCH (09:24)
[2017-10-29] MEDS: CLORAZEPATE 7.5 MG TABLET PO SCH ×3 (09:24→21:18)
[2017-10-29] MEDS: FERROUS SULFATE 325 MG TABLET PO SCH (09:24)
[2017-10-29 09:55] LABS: Basophils % 0.1 % (0.0-0.8); Hematocrit 19.3 VOL% (42.0-52.0); Immature Granulocytes % 1.9 %; Immature Granulocytes Absolute 0.62 #; Lymphocytes # 0.7 10*3/uL (1.4-4.0); Lymphocytes % 2.1 % (21.2-54.2); Mean Corpuscular HGB Conc 34.2 GM/DL (32-36); Mean Corpuscular Hemoglobin 31 PG (27-34); Mean Corpuscular Volume 89.8 FL (87-102); Mean Platelet Volume 11.8 FL (9.6-12.0); Monocytes # 2.1 10*3/uL (0.11-0.8); Monocytes % 6.4 % (1.7-12.7); Neutrophils # 29.1 10*3/uL (1.4-7.4); Neutrophils % 89.5 % (38.7-73.9); Platelet Count 144 T/CUMM (130-400); Red Blood Count 2.15 MC/CUMM (3.8-5.5); Red Cell Distribution Width 14.3 % (9.3-17.3); White Blood Count 32.6 T/CUMM (4-12)
[2017-10-29 10:06] LABS: Hemoglobin 6.6 GM/DL (14.0-18.0)
[2017-10-29 10:28] LABS: Band Neutrophils 3 % (0-10); Giant Platelets Few; Hypochromasia 1+; Lymphocytes 4 % (20-55); Ovalocytes Slight; Platelet Estimate Normal; Segmented Neutrophils 88 % (50-85); Total Cells Counted 100
[2017-10-29] MEDS ORDERED: SODIUM CHLORIDE 0.9% 1,000 ML IV PRN ×2 (15:42→16:36)
[2017-10-29] MEDS: ENOXAPARIN 40 MG/0.4 ML SYRINGE SUBCUT SCH (16:12)
[2017-10-29] MEDS: WARFARIN 5 MG TABLET PO SCH (18:41)
[2017-10-29] MEDS: ROSUVASTATIN 20 MG TABLET PO SCH (21:18)
[2017-10-29] MEDS ORDERED: AMIODARONE INJ 150 MG in DEXTROSE 5% 100 ML IV ONE (21:24)
[2017-10-29] MEDS ORDERED: DILTIAZEM 50 MG/10 ML VIAL IV ONE (21:25)
[2017-10-29] MEDS ORDERED: AMIODARONE 150 MG/3 ML VIAL ONE (21:27)
[2017-10-29] MEDS ORDERED: DILTIAZEM 100 MG VIAL.ADD IV ONE (21:28)
[2017-10-29] MEDS ORDERED: SODIUM CHLORIDE 0.9% 100 ML IV ONE (21:28)
[2017-10-29] MEDS ORDERED: AMIODARONE INJ 450 MG in DEXTROSE 5% 241 ML IV SCH (21:30)
[2017-10-29] MEDS: ONDANSETRON 4 MG/2 ML VIAL IV PRN (22:00)
[2017-10-29] MEDS: DILTIAZEM INJ 100 MG in SODIUM CHLORIDE 0.9% 100 ML IV SCH (22:01)
[2017-10-29] MEDS ORDERED: DIGOXIN 0.5 MG/2 ML AMP IV ONE (22:09)
[2017-10-29] MEDS ORDERED: DIGOXIN 0.5 MG/2 ML AMP ONE (22:11)
[2017-10-29] MEDS: SODIUM CHLORIDE 0.9% 1,000 ML IV SCH (23:24)
[2017-10-29] MEDS: ZALEPLON 5 MG CAPSULE PO PRN (23:26)
[2017-10-30] MEDS: methylPREDNISolone SOD SUC 40 MG/1 ML VIAL IV SCH ×4 (00:31→18:07)
[2017-10-30] MEDS: oxyCODONE/ACETAMINOPHEN 5-325 MG TABLET PO PRN ×4 (00:39→20:20)
[2017-10-30] MEDS: ZALEPLON 5 MG CAPSULE PO PRN ×2 (00:39→20:20)
[2017-10-30 01:15] LABS: INR 0.9; PT Patient Result 9.9 SECS
[2017-10-30 01:23] LABS: Basophils % 0.1 % (0.0-0.8); Hematocrit 24.9 VOL% (42.0-52.0); Hemoglobin 8.2 GM/DL (14.0-18.0); Immature Granulocytes % 5.7 %; Lymphocytes # 0.6 10*3/uL (1.4-4.0); Mean Corpuscular HGB Conc 32.9 GM/DL (32-36); Mean Corpuscular Hemoglobin 30 PG (27-34); Mean Corpuscular Volume 91.5 FL (87-102); Monocytes # 1.8 10*3/uL (0.11-0.8); Monocytes % 5.9 % (1.7-12.7); Neutrophils # 25.6 10*3/uL (1.4-7.4); Neutrophils % 86.3 % (38.7-73.9); Platelet Count 145 T/CUMM (130-400); Red Blood Count 2.72 MC/CUMM (3.8-5.5); White Blood Count 29.7 T/CUMM (4-12)
[2017-10-30 02:31] LABS: Alkaline Phosphatase 54 U/L (45-117); Calcium 8.3 MG/DL (8.5-10.1)
[2017-10-30 02:32] LABS: Alanine Aminotransferase 24 U/L (16-61); Albumin 2.9 G/DL (3.4-5.0); Aspartate Amino Transferase 28 U/L (0-37); Bilirubin,Indirect 0.3 MG/DL (0.0-1.0); Blood Urea Nitrogen 48 MG/DL (7-18); Glucose 147 MG/DL (74-106); Osmolality,Calculated 283.2 MOS/KG (273-304); Potassium 4.6 MMOL/L (3.5-5.1); Sodium 134 MMOL/L (136-145); Total Protein 5.2 G/DL (6.4-8.3)
[2017-10-30 02:36] LABS: Band Neutrophils 5 % (0-10); Lymphocytes 1 % (20-55); Platelet Estimate Adequate; Segmented Neutrophils 92 % (50-85); Target Cells Few; Total Cells Counted 100
[2017-10-30 02:37] LABS: Microcytosis Slight; Stomatocytes Slight
[2017-10-30] MEDS: ALBUTEROL/IPRATROPIUM 3 ML NEB RESP TX SCH ×5 (02:47→19:13)
[2017-10-30] MEDS: KETOROLAC 30 MG/1 ML VIAL IV SCH ×4 (04:23→20:19)
[2017-10-30] MEDS: AMIODARONE INJ 450 MG in DEXTROSE 5% 241 ML IV SCH ×2 (04:23→20:11)
[2017-10-30] MEDS: ALUMINUM/MAGNES/SIMETH MAX STR 30 ML UDCUP PO PRN (04:24)
[2017-10-30] MEDS: CLORAZEPATE 7.5 MG TABLET PO SCH ×3 (10:52→20:19)
[2017-10-30] MEDS: THEOPHYLLINE ER (24 HR) 400 MG CAPSULE PO SCH (10:52)
[2017-10-30] MEDS: FERROUS SULFATE 325 MG TABLET PO SCH (10:53)
[2017-10-30] MEDS: CARVEDILOL 6.25 MG TABLET PO SCH ×2 (10:53→20:20)
[2017-10-30] MEDS: DOCUSATE SODIUM 100 MG CAPSULE PO SCH (10:53)
[2017-10-30] MEDS: LISINOPRIL 10 MG TABLET PO SCH (10:53)
[2017-10-30] MEDS: ASPIRIN EC 325 MG TABLET PO SCH (10:53)
[2017-10-30] MEDS: PANTOPRAZOLE 40 MG TABLET PO SCH (10:54)
[2017-10-30] MEDS: CEFUROXIME INJ 1,500 MG in SYRINGE 1 EACH IV SCH ×2 (10:54→20:15)
[2017-10-30] MEDS: NICOTINE 21 MG/24 HR PATCH TRANSDERM SCH (10:57)
[2017-10-30] MEDS: CHLORHEXIDINE 0.12% ORAL RINSE 60 ML BOTTLE SWISH/SPIT SCH ×2 (10:58→20:22)
[2017-10-30] MEDS: SODIUM CHLORIDE 0.9% 1,000 ML IV SCH (11:02)
[2017-10-30] MEDS: ENOXAPARIN 40 MG/0.4 ML SYRINGE SUBCUT SCH (11:38)
[2017-10-30] MEDS: DIGOXIN 0.25 MG TABLET PO SCH (13:24)
[2017-10-30] MEDS: WARFARIN 5 MG TABLET PO SCH (18:07)
[2017-10-30] MEDS: ROSUVASTATIN 20 MG TABLET PO SCH (20:20)
[2017-10-31] MEDS: ALBUTEROL/IPRATROPIUM 3 ML NEB RESP TX SCH ×6 (00:11→19:12)
[2017-10-31] MEDS: KETOROLAC 30 MG/1 ML VIAL IV SCH ×2 (00:29→03:57)
[2017-10-31] MEDS: DILTIAZEM INJ 100 MG in SODIUM CHLORIDE 0.9% 100 ML IV SCH (00:29)
[2017-10-31] MEDS: methylPREDNISolone SOD SUC 40 MG/1 ML VIAL IV SCH ×4 (00:49→17:50)
[2017-10-31] MEDS: oxyCODONE/ACETAMINOPHEN 5-325 MG TABLET PO PRN ×2 (00:49→10:48)
[2017-10-31] MEDS: ZALEPLON 5 MG CAPSULE PO PRN ×2 (00:50→22:23)
[2017-10-31 05:22] LABS: INR 0.9; PT Patient Result 9.4 SECS
[2017-10-31] MEDS: ALUMINUM/MAGNES/SIMETH MAX STR 30 ML UDCUP PO PRN (05:59)
[2017-10-31] MEDS ORDERED: FUROSEMIDE 40 MG/4 ML VIAL IV ONE (06:14)
[2017-10-31] MEDS: ONDANSETRON 4 MG/2 ML VIAL IV PRN (09:23)
[2017-10-31 10:21] LABS: Basophils % 0.2 % (0.0-0.8); Hematocrit 27.9 VOL% (42.0-52.0); Hemoglobin 8.9 GM/DL (14.0-18.0); Immature Granulocytes % 0.8 %; Immature Granulocytes Absolute 0.16 #; Lymphocytes # 0.4 10*3/uL (1.4-4.0); Lymphocytes % 2.1 % (21.2-54.2); Mean Corpuscular HGB Conc 31.9 GM/DL (32-36); Mean Corpuscular Hemoglobin 30 PG (27-34); Mean Corpuscular Volume 93.6 FL (87-102); Mean Platelet Volume 11.4 FL (9.6-12.0); Monocytes # 1.1 10*3/uL (0.11-0.8); Monocytes % 5.5 % (1.7-12.7); NRBC # 0.04 10*3/uL; Neutrophils # 17.8 10*3/uL (1.4-7.4); Neutrophils % 91.4 % (38.7-73.9); Platelet Count 232 T/CUMM (130-400); Red Blood Count 2.98 MC/CUMM (3.8-5.5); Red Cell Distribution Width 14.3 % (9.3-17.3); White Blood Count 19.5 T/CUMM (4-12)
[2017-10-31] MEDS: NICOTINE 21 MG/24 HR PATCH TRANSDERM SCH (10:34)
[2017-10-31] MEDS: CLORAZEPATE 7.5 MG TABLET PO SCH ×3 (10:36→22:03)
[2017-10-31] MEDS: FERROUS SULFATE 325 MG TABLET PO SCH (10:36)
[2017-10-31] MEDS: CARVEDILOL 6.25 MG TABLET PO SCH ×2 (10:36→22:03)
[2017-10-31] MEDS: PANTOPRAZOLE 40 MG TABLET PO SCH (10:36)
[2017-10-31] MEDS: LISINOPRIL 10 MG TABLET PO SCH (10:36)
[2017-10-31] MEDS: ASPIRIN EC 325 MG TABLET PO SCH (10:36)
[2017-10-31] MEDS: DOCUSATE SODIUM 100 MG CAPSULE PO SCH (10:36)
[2017-10-31] MEDS: CHLORHEXIDINE 0.12% ORAL RINSE 60 ML BOTTLE SWISH/SPIT SCH ×2 (10:37→22:03)
[2017-10-31] MEDS: CEFUROXIME INJ 1,500 MG in SYRINGE 1 EACH IV SCH ×2 (10:39→22:02)
[2017-10-31] MEDS: THEOPHYLLINE ER (24 HR) 400 MG CAPSULE PO SCH (10:48)
[2017-10-31] MEDS: ENOXAPARIN 40 MG/0.4 ML SYRINGE SUBCUT SCH (10:50)
[2017-10-31 10:54] LABS: Band Neutrophils 4 % (0-10); Lymphocytes 3 % (20-55); Segmented Neutrophils 88 % (50-85); Total Cells Counted 100
[2017-10-31 10:55] LABS: Platelet Estimate Adequate
[2017-10-31 10:56] LABS: Giant Platelets Few; Hypochromasia 1+; Microcytosis Slight; Ovalocytes Slight
[2017-10-31 10:59] LABS: Calcium 9.3 MG/DL (8.5-10.1); Osmolality,Calculated 276.7 MOS/KG (273-304); Potassium 5.4 MMOL/L (3.5-5.1)
[2017-10-31] MEDS ORDERED: AMIODARONE 200 MG TABLET PO SCH (12:00)
[2017-10-31] MEDS: AMIODARONE INJ 450 MG in DEXTROSE 5% 241 ML IV SCH (12:24)
[2017-10-31] MEDS: DIGOXIN 0.25 MG TABLET PO SCH (13:38)
[2017-10-31] MEDS: MORPHINE 10 MG/1 ML VIAL IV PRN ×3 (13:39→22:23)
[2017-10-31] MEDS: WARFARIN 7.5 MG TABLET PO SCH (17:49)
[2017-10-31] MEDS: METOCLOPRAMIDE 10 MG/2 ML VIAL IV SCH (22:01)
[2017-10-31] MEDS: ROSUVASTATIN 20 MG TABLET PO SCH (22:03)
[2017-11-01] MEDS: ALBUTEROL/IPRATROPIUM 3 ML NEB RESP TX SCH ×6 (01:06→20:30)
[2017-11-01] MEDS: MORPHINE 10 MG/1 ML VIAL IV PRN ×6 (03:28→21:31)
[2017-11-01] MEDS: AMIODARONE INJ 450 MG in DEXTROSE 5% 241 ML IV SCH ×2 (03:49→16:17)
[2017-11-01] MEDS: METOCLOPRAMIDE 10 MG/2 ML VIAL IV SCH ×3 (06:16→17:08)
[2017-11-01] MEDS: methylPREDNISolone SOD SUC 40 MG/1 ML VIAL IV SCH ×2 (06:16→17:35)
[2017-11-01 07:09] LABS: Basophils % 0.4 % (0.0-0.8); Eosinophils % 0.1 % (0.00-10.9); Hematocrit 27.9 VOL% (42.0-52.0); Hemoglobin 9.1 GM/DL (14.0-18.0); Immature Granulocytes % 1.3 %; Immature Granulocytes Absolute 0.11 #; Lymphocytes # 0.4 10*3/uL (1.4-4.0); Lymphocytes % 4.1 % (21.2-54.2); Mean Corpuscular HGB Conc 32.6 GM/DL (32-36); Mean Corpuscular Hemoglobin 31 PG (27-34); Mean Corpuscular Volume 93.6 FL (87-102); Monocytes # 0.2 10*3/uL (0.11-0.8); Monocytes % 2.1 % (1.7-12.7); NRBC # 0.03 10*3/uL; Neutrophils # 7.8 10*3/uL (1.4-7.4); Platelet Count 218 T/CUMM (130-400); Red Blood Count 2.98 MC/CUMM (3.8-5.5); Red Cell Distribution Width 14.5 % (9.3-17.3); White Blood Count 8.5 T/CUMM (4-12)
[2017-11-01 08:09] LABS: Alanine Aminotransferase 26 U/L (16-61); Albumin 2.7 G/DL (3.4-5.0); Alkaline Phosphatase 67 U/L (45-117); Aspartate Amino Transferase 24 U/L (0-37); Bilirubin,Indirect 0.3 MG/DL (0.0-1.0); Blood Urea Nitrogen 48 MG/DL (7-18); Calcium 9.3 MG/DL (8.5-10.1); Glucose 87 MG/DL (74-106); Osmolality,Calculated 277.4 MOS/KG (273-304); Potassium 5.6 MMOL/L (3.5-5.1); Sodium 133 MMOL/L (136-145); Total Protein 5.4 G/DL (6.4-8.3)
[2017-11-01 08:12] LABS: Troponin I Only 0.909 NG/ML (0.00-0.045)
[2017-11-01] MEDS: CEFUROXIME INJ 1,500 MG in SYRINGE 1 EACH IV SCH ×2 (08:30→21:31)
[2017-11-01] MEDS: BENZOCAINE/MENTHOL LOZENGE 18/BOX PO PRN ×2 (08:30→15:09)
[2017-11-01] MEDS: NICOTINE 21 MG/24 HR PATCH TRANSDERM SCH (09:44)
[2017-11-01] MEDS: ENOXAPARIN 40 MG/0.4 ML SYRINGE SUBCUT SCH (09:45)
[2017-11-01] MEDS: DOCUSATE SODIUM 100 MG CAPSULE PO SCH (09:46)
[2017-11-01] MEDS: LISINOPRIL 10 MG TABLET PO SCH (09:46)
[2017-11-01] MEDS: PANTOPRAZOLE 40 MG TABLET PO SCH (09:46)
[2017-11-01] MEDS: FERROUS SULFATE 325 MG TABLET PO SCH (09:46)
[2017-11-01] MEDS: THEOPHYLLINE ER (24 HR) 400 MG CAPSULE PO SCH (09:46)
[2017-11-01] MEDS: ASPIRIN EC 325 MG TABLET PO SCH (09:46)
[2017-11-01] MEDS: CLORAZEPATE 7.5 MG TABLET PO SCH ×3 (09:46→21:30)
[2017-11-01] MEDS: CARVEDILOL 6.25 MG TABLET PO SCH ×2 (09:46→21:30)
[2017-11-01] MEDS: CHLORHEXIDINE 0.12% ORAL RINSE 60 ML BOTTLE SWISH/SPIT SCH ×2 (09:52→21:43)
[2017-11-01 12:56] LABS: Band Neutrophils 1 % (0-10); Hypochromasia Slight; Lymphocytes 14 % (20-55); Segmented Neutrophils 83 % (50-85); Total Cells Counted 100
[2017-11-01 12:57] LABS: Platelet Estimate Adequate
[2017-11-01] MEDS: DIGOXIN 0.25 MG TABLET PO SCH (15:05)
[2017-11-01] MEDS: WARFARIN 7.5 MG TABLET PO SCH (17:11)
[2017-11-01] MEDS: ROSUVASTATIN 20 MG TABLET PO SCH (21:30)
[2017-11-02] MEDS: ALBUTEROL/IPRATROPIUM 3 ML NEB RESP TX SCH ×6 (00:59→19:46)
[2017-11-02] MEDS: ZALEPLON 5 MG CAPSULE PO PRN ×2 (01:45→20:58)
[2017-11-02] MEDS: METOCLOPRAMIDE 10 MG/2 ML VIAL IV SCH ×4 (02:17→20:58)
[2017-11-02 03:18] LABS: Basophils % 0.3 % (0.0-0.8); Eosinophils % 0.1 % (0.00-10.9); Hematocrit 27.9 VOL% (42.0-52.0); Hemoglobin 8.7 GM/DL (14.0-18.0); Immature Granulocytes % 1.1 %; Lymphocytes # 0.5 10*3/uL (1.4-4.0); Lymphocytes % 5.6 % (21.2-54.2); Mean Corpuscular HGB Conc 31.2 GM/DL (32-36); Mean Corpuscular Hemoglobin 30 PG (27-34); Mean Corpuscular Volume 94.6 FL (87-102); Mean Platelet Volume 11.3 FL (9.6-12.0); Monocytes # 1.3 10*3/uL (0.11-0.8); Neutrophils # 7.4 10*3/uL (1.4-7.4); Neutrophils % 78.9 % (38.7-73.9); Platelet Count 232 T/CUMM (130-400); Red Blood Count 2.95 MC/CUMM (3.8-5.5); Red Cell Distribution Width 14.2 % (9.3-17.3); White Blood Count 9.4 T/CUMM (4-12)
[2017-11-02 03:39] LABS: Alanine Aminotransferase 22 U/L (16-61); Albumin 2.4 G/DL (3.4-5.0); Alkaline Phosphatase 72 U/L (45-117); Aspartate Amino Transferase 21 U/L (0-37); Bilirubin,Indirect 0.5 MG/DL (0.0-1.0); Blood Urea Nitrogen 44 MG/DL (7-18); Calcium 8.8 MG/DL (8.5-10.1); Glucose 97 MG/DL (74-106); INR 1.1; PT Patient Result 11.5 SECS; Potassium 5.6 MMOL/L (3.5-5.1); Sodium 136 MMOL/L (136-145)
[2017-11-02 03:45] LABS: Troponin I Only 0.642 NG/ML (0.00-0.045)
[2017-11-02 04:34] LABS: Anisocytosis 1+; Band Neutrophils 42 % (0-10); Lymphocytes 6 % (20-55); Metamyelocytes 1 %; Segmented Neutrophils 33 % (50-85); Total Cells Counted 100
[2017-11-02] MEDS: MORPHINE 10 MG/1 ML VIAL IV PRN ×3 (05:53→18:04)
[2017-11-02] MEDS: methylPREDNISolone SOD SUC 40 MG/1 ML VIAL IV SCH ×2 (05:53→17:48)
[2017-11-02] MEDS ORDERED: SODIUM PHOSPHATE ENEMA 133 ML BOTTLE RECTAL ONE (08:22)
[2017-11-02] MEDS: AMIODARONE INJ 450 MG in DEXTROSE 5% 241 ML IV SCH (08:24)
[2017-11-02] MEDS: NICOTINE 21 MG/24 HR PATCH TRANSDERM SCH (09:10)
[2017-11-02] MEDS: SODIUM CHLORIDE 0.9% 1,000 ML IV SCH ×2 (09:13→20:59)
[2017-11-02] MEDS ORDERED: FUROSEMIDE 40 MG/4 ML VIAL IV ONE (10:00)
[2017-11-02] MEDS: CEFUROXIME INJ 1,500 MG in SYRINGE 1 EACH IV SCH (10:03)
[2017-11-02] MEDS: LISINOPRIL 10 MG TABLET PO SCH (10:13)
[2017-11-02] MEDS: CARVEDILOL 6.25 MG TABLET PO SCH ×2 (10:13→20:59)
[2017-11-02] MEDS: PANTOPRAZOLE 40 MG TABLET PO SCH (10:13)
[2017-11-02] MEDS: ENOXAPARIN 40 MG/0.4 ML SYRINGE SUBCUT SCH (10:13)
[2017-11-02] MEDS: ASPIRIN EC 325 MG TABLET PO SCH (10:13)
[2017-11-02] MEDS: THEOPHYLLINE ER (24 HR) 400 MG CAPSULE PO SCH (10:14)
[2017-11-02] MEDS: DOCUSATE SODIUM 100 MG CAPSULE PO SCH (10:14)
[2017-11-02] MEDS: FERROUS SULFATE 325 MG TABLET PO SCH (10:14)
[2017-11-02] MEDS: CHLORHEXIDINE 0.12% ORAL RINSE 60 ML BOTTLE SWISH/SPIT SCH ×2 (10:14→21:44)
[2017-11-02] MEDS: CLORAZEPATE 7.5 MG TABLET PO SCH ×3 (10:18→20:58)
[2017-11-02] MEDS: AMIODARONE 200 MG TABLET PO SCH (12:46)
[2017-11-02] MEDS: DIGOXIN 0.25 MG TABLET PO SCH (14:20)
[2017-11-02] MEDS: WARFARIN 7.5 MG TABLET PO SCH (17:41)
[2017-11-02] MEDS: ROSUVASTATIN 20 MG TABLET PO SCH (20:58)
[2017-11-03] MEDS: ALBUTEROL/IPRATROPIUM 3 ML NEB RESP TX SCH ×7 (00:28→23:20)
[2017-11-03] MEDS: METOCLOPRAMIDE 10 MG/2 ML VIAL IV SCH ×4 (03:10→21:53)
[2017-11-03] MEDS: oxyCODONE/ACETAMINOPHEN 5-325 MG TABLET PO PRN (04:38)
[2017-11-03 05:02] LABS: INR 1.2; PT Patient Result 12.4 SECS
[2017-11-03 05:32] LABS: Calcium 8.2 MG/DL (8.5-10.1); Osmolality,Calculated 283.7 MOS/KG (273-304); Potassium 5.4 MMOL/L (3.5-5.1)
[2017-11-03] MEDS: methylPREDNISolone SOD SUC 40 MG/1 ML VIAL IV SCH ×2 (06:11→18:03)
[2017-11-03] MEDS: ASPIRIN EC 325 MG TABLET PO SCH (09:37)
[2017-11-03] MEDS: DOCUSATE SODIUM 100 MG CAPSULE PO SCH (09:38)
[2017-11-03] MEDS: CARVEDILOL 6.25 MG TABLET PO SCH ×2 (09:38→21:54)
[2017-11-03] MEDS: AMIODARONE 200 MG TABLET PO SCH (09:39)
[2017-11-03] MEDS: FERROUS SULFATE 325 MG TABLET PO SCH (09:41)
[2017-11-03] MEDS: NICOTINE 21 MG/24 HR PATCH TRANSDERM SCH (09:41)
[2017-11-03] MEDS: LISINOPRIL 10 MG TABLET PO SCH (09:44)
[2017-11-03] MEDS: PANTOPRAZOLE 40 MG TABLET PO SCH (09:45)
[2017-11-03] MEDS: CLORAZEPATE 7.5 MG TABLET PO SCH ×3 (09:45→21:53)
[2017-11-03] MEDS: CHLORHEXIDINE 0.12% ORAL RINSE 60 ML BOTTLE SWISH/SPIT SCH ×2 (09:56→22:56)
[2017-11-03] MEDS: THEOPHYLLINE ER (24 HR) 400 MG CAPSULE PO SCH (09:57)
[2017-11-03] MEDS: SODIUM CHLORIDE 0.9% 1,000 ML IV SCH ×2 (09:59→22:56)
[2017-11-03] MEDS: ENOXAPARIN 40 MG/0.4 ML SYRINGE SUBCUT SCH (10:10)
[2017-11-03] MEDS: DIGOXIN 0.25 MG TABLET PO SCH (13:41)
[2017-11-03] MEDS: ACETAMINOPHEN 325 MG TABLET PO PRN (15:01)
[2017-11-03] MEDS: MORPHINE 10 MG/1 ML VIAL IV PRN ×2 (16:50→20:17)
[2017-11-03] MEDS: WARFARIN 7.5 MG TABLET PO SCH (18:03)
[2017-11-03] MEDS: ZALEPLON 5 MG CAPSULE PO PRN (21:54)
[2017-11-03] MEDS: ROSUVASTATIN 20 MG TABLET PO SCH (21:54)
[2017-11-04] MEDS: METOCLOPRAMIDE 10 MG/2 ML VIAL IV SCH ×4 (02:30→21:45)
[2017-11-04] MEDS: ALBUTEROL/IPRATROPIUM 3 ML NEB RESP TX SCH ×6 (03:00→23:56)
[2017-11-04 05:30] LABS: Basophils # 0.1 10*3/uL (0.0-0.2); Basophils % 0.6 % (0.0-0.8); Eosinophils % 0.3 % (0.00-10.9); Hematocrit 25.5 VOL% (42.0-52.0); Hemoglobin 8.2 GM/DL (14.0-18.0); Immature Granulocytes Absolute 0.21 #; Lymphocytes # 0.5 10*3/uL (1.4-4.0); Lymphocytes % 4.7 % (21.2-54.2); Mean Corpuscular HGB Conc 32.2 GM/DL (32-36); Mean Corpuscular Hemoglobin 31 PG (27-34); Mean Corpuscular Volume 94.8 FL (87-102); Mean Platelet Volume 10.3 FL (9.6-12.0); Monocytes # 0.7 10*3/uL (0.11-0.8); Monocytes % 7.1 % (1.7-12.7); Neutrophils # 8.9 10*3/uL (1.4-7.4); Neutrophils % 85.3 % (38.7-73.9); Platelet Count 255 T/CUMM (130-400); Red Blood Count 2.69 MC/CUMM (3.8-5.5); Red Cell Distribution Width 13.5 % (9.3-17.3); White Blood Count 10.5 T/CUMM (4-12)
[2017-11-04 05:34] LABS: INR 1.5; PT Patient Result 15.3 SECS
[2017-11-04 05:58] LABS: Calcium 7.8 MG/DL (8.5-10.1); Osmolality,Calculated 281.7 MOS/KG (273-304); Potassium 5.3 MMOL/L (3.5-5.1)
[2017-11-04 06:10] LABS: Band Neutrophils 11 % (0-10); Lymphocytes 7 % (20-55); Metamyelocytes 3 %; Myelocytes 1 %; Promyelocytes 1 %; Segmented Neutrophils 71 % (50-85); Total Cells Counted 100
[2017-11-04 06:11] LABS: Hypochromasia 1+; Ovalocytes Slight
[2017-11-04 06:12] LABS: Microcytosis 1+; Platelet Estimate Normal
[2017-11-04] MEDS: methylPREDNISolone SOD SUC 40 MG/1 ML VIAL IV SCH ×2 (06:53→19:01)
[2017-11-04] MEDS ORDERED: MORPHINE 2 MG/1 ML SYRINGE ONE ×2 (09:33→12:11)
[2017-11-04] MEDS: NICOTINE 21 MG/24 HR PATCH TRANSDERM SCH (09:38)
[2017-11-04] MEDS: ENOXAPARIN 40 MG/0.4 ML SYRINGE SUBCUT SCH (09:39)
[2017-11-04] MEDS: MORPHINE 10 MG/1 ML VIAL IV PRN ×3 (09:40→20:18)
[2017-11-04] MEDS: ASPIRIN EC 325 MG TABLET PO SCH (09:40)
[2017-11-04] MEDS: PANTOPRAZOLE 40 MG TABLET PO SCH (09:40)
[2017-11-04] MEDS: FERROUS SULFATE 325 MG TABLET PO SCH (09:40)
[2017-11-04] MEDS: DOCUSATE SODIUM 100 MG CAPSULE PO SCH (09:40)
[2017-11-04] MEDS: CLORAZEPATE 7.5 MG TABLET PO SCH ×3 (09:40→21:45)
[2017-11-04] MEDS: THEOPHYLLINE ER (24 HR) 400 MG CAPSULE PO SCH (09:40)
[2017-11-04] MEDS: CARVEDILOL 6.25 MG TABLET PO SCH ×2 (09:40→21:45)
[2017-11-04] MEDS: CHLORHEXIDINE 0.12% ORAL RINSE 60 ML BOTTLE SWISH/SPIT SCH ×2 (09:44→21:45)
[2017-11-04] MEDS: AMIODARONE 200 MG TABLET PO SCH (09:48)
[2017-11-04] MEDS: DIGOXIN 0.25 MG TABLET PO SCH (13:59)
[2017-11-04] MEDS: oxyCODONE/ACETAMINOPHEN 5-325 MG TABLET PO PRN (15:55)
[2017-11-04] MEDS: WARFARIN 7.5 MG TABLET PO SCH (19:01)
[2017-11-04] MEDS: ROSUVASTATIN 20 MG TABLET PO SCH (21:45)
[2017-11-05] MEDS: METOCLOPRAMIDE 10 MG/2 ML VIAL IV SCH ×4 (02:44→22:00)
[2017-11-05] MEDS: ALBUTEROL/IPRATROPIUM 3 ML NEB RESP TX SCH ×5 (03:39→18:38)
[2017-11-05 05:17] LABS: Basophils # 0.1 10*3/uL (0.0-0.2); Basophils % 0.4 % (0.0-0.8); Eosinophils % 0.2 % (0.00-10.9); Hematocrit 25.3 VOL% (42.0-52.0); Hemoglobin 7.8 GM/DL (14.0-18.0); Immature Granulocytes % 1.7 %; Lymphocytes # 0.5 10*3/uL (1.4-4.0); Lymphocytes % 4.4 % (21.2-54.2); Mean Corpuscular HGB Conc 30.8 GM/DL (32-36); Mean Corpuscular Hemoglobin 29 PG (27-34); Mean Corpuscular Volume 95.5 FL (87-102); Mean Platelet Volume 10.5 FL (9.6-12.0); Monocytes # 0.9 10*3/uL (0.11-0.8); Monocytes % 7.6 % (1.7-12.7); Neutrophils # 10.3 10*3/uL (1.4-7.4); Neutrophils % 85.7 % (38.7-73.9); Platelet Count 245 T/CUMM (130-400); Red Blood Count 2.65 MC/CUMM (3.8-5.5); Red Cell Distribution Width 13.4 % (9.3-17.3); White Blood Count 12.1 T/CUMM (4-12)
[2017-11-05 05:22] LABS: INR 1.7; PT Patient Result 17.2 SECS
[2017-11-05 05:56] LABS: Band Neutrophils 14 % (0-10); Giant Platelets Few; Hypochromasia 1+; Lymphocytes 3 % (20-55); Platelet Estimate Adequate; Segmented Neutrophils 72 % (50-85); Total Cells Counted 100
[2017-11-05 05:57] LABS: Microcytosis 1+; Ovalocytes Slight
[2017-11-05 05:59] LABS: Calcium 6.8 MG/DL (8.5-10.1); Osmolality,Calculated 280.8 MOS/KG (273-304); Potassium 5.3 MMOL/L (3.5-5.1)
[2017-11-05] MEDS: methylPREDNISolone SOD SUC 40 MG/1 ML VIAL IV SCH ×2 (06:02→17:30)
[2017-11-05] MEDS: ASPIRIN EC 325 MG TABLET PO SCH (08:26)
[2017-11-05] MEDS: THEOPHYLLINE ER (24 HR) 400 MG CAPSULE PO SCH (08:26)
[2017-11-05] MEDS: FERROUS SULFATE 325 MG TABLET PO SCH (08:27)
[2017-11-05] MEDS: NICOTINE 21 MG/24 HR PATCH TRANSDERM SCH (08:27)
[2017-11-05] MEDS: CARVEDILOL 6.25 MG TABLET PO SCH ×2 (08:27→22:00)
[2017-11-05] MEDS: CLORAZEPATE 7.5 MG TABLET PO SCH ×3 (08:27→21:59)
[2017-11-05] MEDS: AMIODARONE 200 MG TABLET PO SCH (08:27)
[2017-11-05] MEDS: DOCUSATE SODIUM 100 MG CAPSULE PO SCH (08:27)
[2017-11-05] MEDS: PANTOPRAZOLE 40 MG TABLET PO SCH (08:27)
[2017-11-05] MEDS: ENOXAPARIN 40 MG/0.4 ML SYRINGE SUBCUT SCH (09:59)
[2017-11-05] MEDS: CHLORHEXIDINE 0.12% ORAL RINSE 60 ML BOTTLE SWISH/SPIT SCH ×2 (09:59→22:05)
[2017-11-05] MEDS: ACETAMINOPHEN 325 MG TABLET PO PRN (10:18)
[2017-11-05] MEDS: DIGOXIN 0.25 MG TABLET PO SCH (13:59)
[2017-11-05] MEDS: oxyCODONE/ACETAMINOPHEN 5-325 MG TABLET PO PRN ×2 (14:49→19:38)
[2017-11-05] MEDS: WARFARIN 7.5 MG TABLET PO SCH (17:12)
[2017-11-05] MEDS: ROSUVASTATIN 20 MG TABLET PO SCH (22:00)
[2017-11-05] MEDS: ZALEPLON 5 MG CAPSULE PO PRN (22:00)
[2017-11-06] MEDS: ALBUTEROL/IPRATROPIUM 3 ML NEB RESP TX SCH ×7 (00:26→23:00)
[2017-11-06] MEDS: METOCLOPRAMIDE 10 MG/2 ML VIAL IV SCH ×2 (05:07→07:07)
[2017-11-06 05:49] LABS: Basophils # 0.1 10*3/uL (0.0-0.2); Basophils % 0.8 % (0.0-0.8); Eosinophils # 0.1 10*3/uL (0.0-0.87); Eosinophils % 1.5 % (0.00-10.9); Hematocrit 24.8 VOL% (42.0-52.0); Hemoglobin 7.8 GM/DL (14.0-18.0); Immature Granulocytes % 1.2 %; Immature Granulocytes Absolute 0.11 #; Lymphocytes # 0.5 10*3/uL (1.4-4.0); Lymphocytes % 5.6 % (21.2-54.2); Mean Corpuscular HGB Conc 31.5 GM/DL (32-36); Mean Corpuscular Hemoglobin 30 PG (27-34); Mean Corpuscular Volume 94.3 FL (87-102); Mean Platelet Volume 10.5 FL (9.6-12.0); Monocytes # 1.1 10*3/uL (0.11-0.8); Monocytes % 11.4 % (1.7-12.7); Neutrophils # 7.4 10*3/uL (1.4-7.4); Neutrophils % 79.5 % (38.7-73.9); Platelet Count 263 T/CUMM (130-400); Red Blood Count 2.63 MC/CUMM (3.8-5.5); Red Cell Distribution Width 13.5 % (9.3-17.3); White Blood Count 9.3 T/CUMM (4-12)
[2017-11-06 06:12] LABS: INR 2.3
[2017-11-06 06:13] LABS: PT Patient Result 23.1 SECS
[2017-11-06 06:25] LABS: Calcium 7.4 MG/DL (8.5-10.1); Osmolality,Calculated 273.1 MOS/KG (273-304)
[2017-11-06] MEDS ORDERED: WARFARIN 5 MG TABLET PO SCH (06:29)
[2017-11-06] MEDS: methylPREDNISolone SOD SUC 40 MG/1 ML VIAL IV SCH ×2 (06:34→17:29)
[2017-11-06 06:38] LABS: Hypochromasia 1+; Platelet Estimate Normal; Polychromasia Slight
[2017-11-06] MEDS: THEOPHYLLINE ER (24 HR) 400 MG CAPSULE PO SCH (08:40)
[2017-11-06] MEDS: AMIODARONE 200 MG TABLET PO SCH (08:40)
[2017-11-06] MEDS: CARVEDILOL 6.25 MG TABLET PO SCH ×2 (08:40→21:47)
[2017-11-06] MEDS: FERROUS SULFATE 325 MG TABLET PO SCH (08:40)
[2017-11-06] MEDS: ASPIRIN EC 325 MG TABLET PO SCH (08:40)
[2017-11-06] MEDS: PANTOPRAZOLE 40 MG TABLET PO SCH (08:40)
[2017-11-06] MEDS: DOCUSATE SODIUM 100 MG CAPSULE PO SCH (08:40)
[2017-11-06] MEDS: CLORAZEPATE 7.5 MG TABLET PO SCH ×3 (08:40→21:45)
[2017-11-06] MEDS: NICOTINE 21 MG/24 HR PATCH TRANSDERM SCH (08:40)
[2017-11-06] MEDS: CHLORHEXIDINE 0.12% ORAL RINSE 60 ML BOTTLE SWISH/SPIT SCH ×2 (09:21→21:47)
[2017-11-06] MEDS: oxyCODONE/ACETAMINOPHEN 5-325 MG TABLET PO PRN ×3 (11:33→21:47)
[2017-11-06] MEDS: DIGOXIN 0.125 MG TABLET PO SCH (12:34)
[2017-11-06] MEDS: ACETAMINOPHEN 325 MG TABLET PO PRN (15:11)
[2017-11-06] MEDS: ZALEPLON 5 MG CAPSULE PO PRN (21:47)
[2017-11-06] MEDS: ROSUVASTATIN 20 MG TABLET PO SCH (21:47)
[2017-11-06] MEDS ORDERED: DILTIAZEM 100 MG VIAL.ADD IV ONE ×2 (22:19→22:21)
[2017-11-06] MEDS ORDERED: DILTIAZEM 50 MG/10 ML VIAL IV ONE (22:30)
[2017-11-06] MEDS: DILTIAZEM INJ 100 MG in SODIUM CHLORIDE 0.9% 100 ML IV SCH (22:30)
[2017-11-07] MEDS: ALBUTEROL/IPRATROPIUM 3 ML NEB RESP TX SCH ×5 (02:37→20:09)
[2017-11-07] MEDS: oxyCODONE/ACETAMINOPHEN 5-325 MG TABLET PO PRN ×3 (03:16→20:18)
[2017-11-07 05:13] LABS: Basophils % 0.3 % (0.0-0.8); Eosinophils # 0.1 10*3/uL (0.0-0.87); Eosinophils % 0.6 % (0.00-10.9); Hematocrit 24.3 VOL% (42.0-52.0); Immature Granulocytes % 0.9 %; Immature Granulocytes Absolute 0.09 #; Lymphocytes # 0.7 10*3/uL (1.4-4.0); Mean Corpuscular HGB Conc 32.9 GM/DL (32-36); Mean Corpuscular Hemoglobin 30 PG (27-34); Mean Platelet Volume 10.4 FL (9.6-12.0); Monocytes # 0.9 10*3/uL (0.11-0.8); Neutrophils # 8.5 10*3/uL (1.4-7.4); Neutrophils % 82.2 % (38.7-73.9); Platelet Count 308 T/CUMM (130-400); Red Blood Count 2.64 MC/CUMM (3.8-5.5); Red Cell Distribution Width 13.3 % (9.3-17.3); White Blood Count 10.4 T/CUMM (4-12)
[2017-11-07 05:25] LABS: INR 3.6
[2017-11-07 05:39] LABS: Calcium 7.4 MG/DL (8.5-10.1); Osmolality,Calculated 278.7 MOS/KG (273-304); Potassium 4.9 MMOL/L (3.5-5.1)
[2017-11-07 06:06] LABS: PT Patient Result 36.1 SECS
[2017-11-07 06:27] LABS: Band Neutrophils 32 % (0-10); Eosinophils 2 % (0-10); Lymphocytes 13 % (20-55); Macrocytosis 1+; Platelet Estimate Normal; Segmented Neutrophils 47 % (50-85); Total Cells Counted 100
[2017-11-07 06:28] LABS: Atypical Lymphocytes Few
[2017-11-07] MEDS: methylPREDNISolone SOD SUC 40 MG/1 ML VIAL IV SCH ×2 (06:43→20:27)
[2017-11-07] MEDS: CLORAZEPATE 7.5 MG TABLET PO SCH ×3 (08:27→21:24)
[2017-11-07] MEDS: NICOTINE 21 MG/24 HR PATCH TRANSDERM SCH (08:27)
[2017-11-07] MEDS: FERROUS SULFATE 325 MG TABLET PO SCH (08:27)
[2017-11-07] MEDS: THEOPHYLLINE ER (24 HR) 400 MG CAPSULE PO SCH (08:27)
[2017-11-07] MEDS: PANTOPRAZOLE 40 MG TABLET PO SCH (08:28)
[2017-11-07] MEDS: DOCUSATE SODIUM 100 MG CAPSULE PO SCH (08:28)
[2017-11-07] MEDS: CARVEDILOL 6.25 MG TABLET PO SCH ×2 (08:28→21:24)
[2017-11-07] MEDS: ASPIRIN EC 325 MG TABLET PO SCH (08:28)
[2017-11-07] MEDS: AMIODARONE 200 MG TABLET PO SCH (08:28)
[2017-11-07] MEDS: CHLORHEXIDINE 0.12% ORAL RINSE 60 ML BOTTLE SWISH/SPIT SCH ×2 (08:29→21:24)
[2017-11-07] MEDS ORDERED: SODIUM CHLORIDE 0.9% 1,000 ML IV PRN ×2 (10:54→11:40)
[2017-11-07] MEDS: DIGOXIN 0.125 MG TABLET PO SCH (14:32)
[2017-11-07] MEDS: ALUMINUM/MAGNES/SIMETH MAX STR 30 ML UDCUP PO PRN (19:06)
[2017-11-07] MEDS: ROSUVASTATIN 20 MG TABLET PO SCH (21:24)
[2017-11-07] MEDS: ZALEPLON 5 MG CAPSULE PO PRN (21:56)
[2017-11-07 23:07] LABS: Hematocrit 27.1 VOL% (42.0-52.0); Hemoglobin 8.8 GM/DL (14.0-18.0)
[2017-11-08] MEDS: ALBUTEROL/IPRATROPIUM 3 ML NEB RESP TX SCH ×7 (00:19→23:46)
[2017-11-08] MEDS: DILTIAZEM INJ 100 MG in SODIUM CHLORIDE 0.9% 100 ML IV SCH ×2 (00:25→23:12)
[2017-11-08] MEDS: oxyCODONE/ACETAMINOPHEN 5-325 MG TABLET PO PRN ×3 (01:54→22:38)
[2017-11-08 05:08] LABS: Basophils % 0.3 % (0.0-0.8); Hemoglobin 8.8 GM/DL (14.0-18.0); Immature Granulocytes % 1.6 %; Immature Granulocytes Absolute 0.16 #; Lymphocytes # 0.7 10*3/uL (1.4-4.0); Lymphocytes % 6.3 % (21.2-54.2); Mean Corpuscular HGB Conc 32.6 GM/DL (32-36); Mean Corpuscular Hemoglobin 30 PG (27-34); Mean Corpuscular Volume 92.5 FL (87-102); Mean Platelet Volume 10.2 FL (9.6-12.0); Monocytes # 1.3 10*3/uL (0.11-0.8); Monocytes % 12.1 % (1.7-12.7); NRBC # 0.03 10*3/uL; Neutrophils # 8.2 10*3/uL (1.4-7.4); Neutrophils % 79.7 % (38.7-73.9); Platelet Count 263 T/CUMM (130-400); Red Blood Count 2.92 MC/CUMM (3.8-5.5); Red Cell Distribution Width 13.8 % (9.3-17.3); White Blood Count 10.3 T/CUMM (4-12)
[2017-11-08 05:25] LABS: Calcium 7.1 MG/DL (8.5-10.1); Osmolality,Calculated 277.8 MOS/KG (273-304)
[2017-11-08 05:26] LABS: INR 2.6
[2017-11-08 05:31] LABS: PT Patient Result 26.9 SECS
[2017-11-08 05:53] LABS: Giant Platelets Few; Hypochromasia 1+; Microcytosis Slight; Platelet Estimate Adequate
[2017-11-08] MEDS: methylPREDNISolone SOD SUC 40 MG/1 ML VIAL IV SCH ×2 (06:02→17:33)
[2017-11-08] MEDS: AMIODARONE 200 MG TABLET PO SCH (10:07)
[2017-11-08] MEDS: DOCUSATE SODIUM 100 MG CAPSULE PO SCH (10:07)
[2017-11-08] MEDS: ASPIRIN EC 325 MG TABLET PO SCH (10:07)
[2017-11-08] MEDS: NICOTINE 21 MG/24 HR PATCH TRANSDERM SCH (10:08)
[2017-11-08] MEDS: CARVEDILOL 6.25 MG TABLET PO SCH ×2 (10:08→22:39)
[2017-11-08] MEDS: FERROUS SULFATE 325 MG TABLET PO SCH (10:08)
[2017-11-08] MEDS: THEOPHYLLINE ER (24 HR) 400 MG CAPSULE PO SCH (10:10)
[2017-11-08] MEDS: CLORAZEPATE 7.5 MG TABLET PO SCH ×3 (10:10→22:39)
[2017-11-08] MEDS: CHLORHEXIDINE 0.12% ORAL RINSE 60 ML BOTTLE SWISH/SPIT SCH ×2 (10:10→22:43)
[2017-11-08] MEDS: PANTOPRAZOLE 40 MG TABLET PO SCH (10:10)
[2017-11-08] MEDS: DIGOXIN 0.125 MG TABLET PO SCH (14:23)
[2017-11-08] MEDS ORDERED: WARFARIN 4 MG TABLET PO SCH (18:00)
[2017-11-08] MEDS: ZALEPLON 5 MG CAPSULE PO PRN (22:39)
[2017-11-09] MEDS: ALBUTEROL/IPRATROPIUM 3 ML NEB RESP TX SCH ×5 (03:31→21:42)
[2017-11-09 06:31] LABS: INR 1.9; PT Patient Result 19.7 SECS
[2017-11-09 06:35] LABS: Basophils % 0.2 % (0.0-0.8); Hematocrit 25.9 VOL% (42.0-52.0); Hemoglobin 8.6 GM/DL (14.0-18.0); Immature Granulocytes % 1.1 %; Lymphocytes # 0.7 10*3/uL (1.4-4.0); Lymphocytes % 7.8 % (21.2-54.2); Mean Corpuscular HGB Conc 33.2 GM/DL (32-36); Mean Corpuscular Hemoglobin 30 PG (27-34); Mean Corpuscular Volume 91.2 FL (87-102); Mean Platelet Volume 10.6 FL (9.6-12.0); Monocytes # 0.9 10*3/uL (0.11-0.8); Monocytes % 9.9 % (1.7-12.7); NRBC # 0.03 10*3/uL; Neutrophils # 7.1 10*3/uL (1.4-7.4); Platelet Count 292 T/CUMM (130-400); Red Blood Count 2.84 MC/CUMM (3.8-5.5); Red Cell Distribution Width 13.9 % (9.3-17.3); White Blood Count 8.8 T/CUMM (4-12)
[2017-11-09] MEDS: methylPREDNISolone SOD SUC 40 MG/1 ML VIAL IV SCH ×2 (06:39→18:51)
[2017-11-09 06:53] LABS: Calcium 7.6 MG/DL (8.5-10.1); Osmolality,Calculated 280.7 MOS/KG (273-304); Potassium 4.5 MMOL/L (3.5-5.1)
[2017-11-09 07:58] LABS: Band Neutrophils 13 % (0-10); Hypochromasia 1+; Lymphocytes 6 % (20-55); Platelet Estimate Adequate; Segmented Neutrophils 72 % (50-85); Theophylline 4.4 UG/ML (10-20); Total Cells Counted 100
[2017-11-09 07:59] LABS: Giant Platelets Few; Microcytosis Slight
[2017-11-09] MEDS: ASPIRIN EC 325 MG TABLET PO SCH (09:27)
[2017-11-09] MEDS: DOCUSATE SODIUM 100 MG CAPSULE PO SCH (09:27)
[2017-11-09] MEDS: CARVEDILOL 6.25 MG TABLET PO SCH ×2 (09:27→21:09)
[2017-11-09] MEDS: CLORAZEPATE 7.5 MG TABLET PO SCH ×3 (09:27→21:09)
[2017-11-09] MEDS: THEOPHYLLINE ER (24 HR) 400 MG CAPSULE PO SCH (09:27)
[2017-11-09] MEDS: AMIODARONE 200 MG TABLET PO SCH (09:27)
[2017-11-09] MEDS: FERROUS SULFATE 325 MG TABLET PO SCH (09:27)
[2017-11-09] MEDS: NICOTINE 21 MG/24 HR PATCH TRANSDERM SCH (09:28)
[2017-11-09] MEDS: CHLORHEXIDINE 0.12% ORAL RINSE 60 ML BOTTLE SWISH/SPIT SCH ×2 (09:28→21:09)
[2017-11-09] MEDS: PANTOPRAZOLE 40 MG TABLET PO SCH (09:28)
[2017-11-09] MEDS: DIGOXIN 0.125 MG TABLET PO SCH (14:00)
[2017-11-09] MEDS: ZALEPLON 5 MG CAPSULE PO PRN (21:09)
[2017-11-09] MEDS: DILTIAZEM INJ 100 MG in SODIUM CHLORIDE 0.9% 100 ML IV SCH (23:58)
[2017-11-10] MEDS: ALBUTEROL/IPRATROPIUM 3 ML NEB RESP TX SCH ×6 (01:16→19:39)
[2017-11-10 05:09] LABS: Basophils % 0.3 % (0.0-0.8); Hematocrit 24.8 VOL% (42.0-52.0); Hemoglobin 8.3 GM/DL (14.0-18.0); Immature Granulocytes % 1.5 %; Lymphocytes # 0.6 10*3/uL (1.4-4.0); Lymphocytes % 8.3 % (21.2-54.2); Mean Corpuscular HGB Conc 33.5 GM/DL (32-36); Mean Corpuscular Hemoglobin 31 PG (27-34); Mean Corpuscular Volume 91.2 FL (87-102); Mean Platelet Volume 10.1 FL (9.6-12.0); Monocytes # 0.8 10*3/uL (0.11-0.8); Monocytes % 11.1 % (1.7-12.7); NRBC # 0.03 10*3/uL; Neutrophils # 5.4 10*3/uL (1.4-7.4); Neutrophils % 78.8 % (38.7-73.9); Platelet Count 306 T/CUMM (130-400); Red Blood Count 2.72 MC/CUMM (3.8-5.5); Red Cell Distribution Width 14.2 % (9.3-17.3); White Blood Count 6.9 T/CUMM (4-12)
[2017-11-10 05:16] LABS: INR 1.2; PT Patient Result 12.9 SECS
[2017-11-10 05:38] LABS: Calcium 7.4 MG/DL (8.5-10.1); Osmolality,Calculated 283.4 MOS/KG (273-304); Potassium 4.5 MMOL/L (3.5-5.1)
[2017-11-10 05:46] LABS: Hypochromasia 1+; Microcytosis Slight; Polychromasia Slight
[2017-11-10 05:47] LABS: Platelet Estimate Normal
[2017-11-10] MEDS: methylPREDNISolone SOD SUC 40 MG/1 ML VIAL IV SCH ×2 (06:24→18:04)
[2017-11-10] MEDS: CHLORHEXIDINE 0.12% ORAL RINSE 60 ML BOTTLE SWISH/SPIT SCH ×2 (10:32→21:51)
[2017-11-10] MEDS ORDERED: PROPOFOL 200 MG/20 ML VIAL IV ONE (11:34)
[2017-11-10] MEDS ORDERED: ETOMIDATE 20 MG/10 ML VIAL IV ONE (11:34)
[2017-11-10] MEDS ORDERED: LIDOCAINE 2% 5 ML VIAL ONE (11:34)
[2017-11-10] MEDS: ASPIRIN EC 325 MG TABLET PO SCH (13:02)
[2017-11-10] MEDS: DIGOXIN 0.125 MG TABLET PO SCH (13:19)
[2017-11-10] MEDS: CLORAZEPATE 7.5 MG TABLET PO SCH ×3 (13:20→21:48)
[2017-11-10] MEDS: NICOTINE 21 MG/24 HR PATCH TRANSDERM SCH (13:20)
[2017-11-10] MEDS: CARVEDILOL 6.25 MG TABLET PO SCH ×2 (13:20→21:48)
[2017-11-10] MEDS: FERROUS SULFATE 325 MG TABLET PO SCH ×2 (13:20→21:51)
[2017-11-10] MEDS: AMIODARONE 200 MG TABLET PO SCH (13:20)
[2017-11-10] MEDS: DOCUSATE SODIUM 100 MG CAPSULE PO SCH (13:20)
[2017-11-10] MEDS: THEOPHYLLINE ER (24 HR) 400 MG CAPSULE PO SCH (13:20)
[2017-11-10] MEDS: CLOTRIMAZOLE 10 MG TROCHE PO SCH ×3 (13:21→21:51)
[2017-11-10] MEDS: PANTOPRAZOLE 40 MG TABLET PO SCH ×2 (17:33→21:48)
[2017-11-10] MEDS: ZALEPLON 5 MG CAPSULE PO PRN (21:48)
[2017-11-11] MEDS: ALBUTEROL/IPRATROPIUM 3 ML NEB RESP TX SCH ×4 (05:26→11:50)
[2017-11-11] MEDS: methylPREDNISolone SOD SUC 40 MG/1 ML VIAL IV SCH (06:18)
[2017-11-11] MEDS: CLOTRIMAZOLE 10 MG TROCHE PO SCH ×3 (06:34→13:30)
[2017-11-11] MEDS: CLORAZEPATE 7.5 MG TABLET PO SCH (08:59)
[2017-11-11] MEDS: CARVEDILOL 6.25 MG TABLET PO SCH (08:59)
[2017-11-11] MEDS: NICOTINE 21 MG/24 HR PATCH TRANSDERM SCH (08:59)
[2017-11-11] MEDS: AMIODARONE 200 MG TABLET PO SCH (08:59)
[2017-11-11] MEDS: FERROUS SULFATE 325 MG TABLET PO SCH (08:59)
[2017-11-11] MEDS: THEOPHYLLINE ER (24 HR) 400 MG CAPSULE PO SCH (09:00)
[2017-11-11] MEDS: CHLORHEXIDINE 0.12% ORAL RINSE 60 ML BOTTLE SWISH/SPIT SCH (09:00)
[2017-11-11] MEDS: DOCUSATE SODIUM 100 MG CAPSULE PO SCH (09:00)
[2017-11-11] MEDS: PANTOPRAZOLE 40 MG TABLET PO SCH (09:00)
[2017-11-11] MEDS: ASPIRIN EC 325 MG TABLET PO SCH (09:01)
[2017-11-11 12:16] VITALS: BP 104/69
== END 2017-11-11 14:10 | disposition home health service (06) | DRG 217 ==
LOC: N.SDSINP 13:00 → N.ICU 10-24 13:57 → N.TELES 10-25 10:40 → N.CVR 10-27 07:44 → N.TELES 10-28 11:18
PROVIDERS: ADMIT Internal Medicine Cardiovascular Disease; ATTEND Internal Medicine Cardiovascular Disease
PROC: CLCCHCL (ICD-10-PCS; 2017-10-24 07:45)
PROC: CABGAVR (ICD-10-PCS; 2017-10-27 06:48)

== ENCOUNTER 2017-11-18 00:23 | Inpatient (IN) ==
[2017-11-18 01:40] LABS: Basophils % 0.2 % (0.0-0.8)
[2017-11-18 01:47] LABS: Eosinophils # 0.1 10*3/uL (0.0-0.87); Eosinophils % 1.6 % (0.00-10.9); Hematocrit 24.8 VOL% (42.0-52.0); Immature Granulocytes % 3.7 %; Immature Granulocytes Absolute 0.32 #; Lymphocytes # 1.8 10*3/uL (1.4-4.0); Lymphocytes % 20.2 % (21.2-54.2); Mean Corpuscular HGB Conc 30.2 GM/DL (32-36); Mean Corpuscular Hemoglobin 30 PG (27-34); Mean Corpuscular Volume 97.6 FL (87-102); Mean Platelet Volume 9.7 FL (9.6-12.0); Monocytes # 0.8 10*3/uL (0.11-0.8); Monocytes % 9.5 % (1.7-12.7); NRBC # 0.05 10*3/uL; Neutrophils # 5.7 10*3/uL (1.4-7.4); Neutrophils % 64.8 % (38.7-73.9); PT Patient Result 10.4 SECS; Platelet Count 343 T/CUMM (130-400); Red Blood Count 2.54 MC/CUMM (3.8-5.5); Red Cell Distribution Width 15.7 % (9.3-17.3); White Blood Count 8.7 T/CUMM (4-12)
[2017-11-18 01:48] LABS: Hemoglobin 7.5 GM/DL (14.0-18.0)
[2017-11-18 02:00] LABS: Alanine Aminotransferase 86 U/L (16-61); Alkaline Phosphatase 77 U/L (45-117); Aspartate Amino Transferase 31 U/L (0-37); Bilirubin,Total < 0.39 MG/DL (0.2-1.0); Blood Urea Nitrogen 13 MG/DL (7-18); Calcium 7.6 MG/DL (8.5-10.1); Glucose 98 MG/DL (74-106); Osmolality,Calculated 282.1 MOS/KG (273-304); Potassium 4.1 MMOL/L (3.5-5.1); Sodium 142 MMOL/L (136-145); Total Protein 4.7 G/DL (6.4-8.3)
[2017-11-18 02:02] LABS: Band Neutrophils 43 % (0-10); Eosinophils 1 % (0-10); Lymphocytes 18 % (20-55); Metamyelocytes 3 %; Nucleated Red Blood Cells 1 (0-5); Segmented Neutrophils 22 % (50-85); Total Cells Counted 100
[2017-11-18 02:03] LABS: Anisocytosis 1+; Polychromasia 2+
[2017-11-18] MEDS ORDERED: MAGNESIUM SULF RIDER 4 GM in PREMIX 1 EACH IV PRN (02:14)
[2017-11-18] MEDS ORDERED: MAGNESIUM SULF RIDER 2 GM in PREMIX 1 EACH IV PRN (02:14)
[2017-11-18] MEDS ORDERED: ENOXAPARIN 100 MG/ML SYRINGE SUBCUT ONE (02:28)
[2017-11-18] MEDS ORDERED: ENOXAPARIN 100 MG/ML SYRINGE SUBCUT SCH ×3 (02:30→17:16)
[2017-11-18 04:57] LABS: Basophils % 0.2 % (0.0-0.8); Eosinophils # 0.2 10*3/uL (0.0-0.87); Eosinophils % 1.7 % (0.00-10.9); Hematocrit 23.3 VOL% (42.0-52.0); Hemoglobin 6.9 GM/DL (14.0-18.0); Immature Granulocytes % 4.2 %; Immature Granulocytes Absolute 0.38 #; Lymphocytes # 1.7 10*3/uL (1.4-4.0); Lymphocytes % 18.7 % (21.2-54.2); Mean Corpuscular HGB Conc 29.6 GM/DL (32-36); Mean Corpuscular Hemoglobin 29 PG (27-34); Mean Corpuscular Volume 99.1 FL (87-102); Mean Platelet Volume 9.4 FL (9.6-12.0); Monocytes # 0.9 10*3/uL (0.11-0.8); Monocytes % 9.7 % (1.7-12.7); NRBC # 0.03 10*3/uL; Neutrophils # 5.9 10*3/uL (1.4-7.4); Neutrophils % 65.5 % (38.7-73.9); Platelet Count 303 T/CUMM (130-400); Red Blood Count 2.35 MC/CUMM (3.8-5.5); Red Cell Distribution Width 15.7 % (9.3-17.3)
[2017-11-18] MEDS ORDERED: SODIUM CHLORIDE 0.9% 1,000 ML IV PRN (05:08)
[2017-11-18 05:27] LABS: Band Neutrophils 2 % (0-10); Eosinophils 2 % (0-10); Hypochromasia 1+; Lymphocytes 21 % (20-55); Metamyelocytes 2 %; Myelocytes 1 %; Segmented Neutrophils 61 % (50-85); Total Cells Counted 100
[2017-11-18 05:28] LABS: Microcytosis 1+; Ovalocytes Slight; Platelet Estimate Normal
[2017-11-18] MEDS ORDERED: ALBUTEROL 2.5 MG/3 ML NEB RESP TX PRN (09:19)
[2017-11-18] MEDS ORDERED: THEOPHYLLINE ER (24 HR) 400 MG CAPSULE PO SCH (09:30)
[2017-11-18] MEDS ORDERED: AMIODARONE 200 MG TABLET PO SCH (09:30)
[2017-11-18] MEDS ORDERED: PANTOPRAZOLE 40 MG TABLET PO SCH (09:30)
[2017-11-18] MEDS: FERROUS SULFATE 325 MG TABLET PO SCH (10:52)
[2017-11-18] MEDS: ASPIRIN EC 81 MG TABLET PO SCH (10:52)
[2017-11-18] MEDS: CARVEDILOL 6.25 MG TABLET PO SCH ×2 (10:52→21:51)
[2017-11-18] MEDS: DOCUSATE SODIUM 100 MG CAPSULE PO SCH (10:52)
[2017-11-18] MEDS ORDERED: ACETAMINOPHEN 325 MG TABLET PO PRN (11:35)
[2017-11-18] MEDS ORDERED: AMIODARONE INJ 150 MG in DEXTROSE 5% 100 ML IV ONE (12:15)
[2017-11-18] MEDS ORDERED: METOPROLOL TARTRATE 5 MG/5 ML VIAL IV ONE ×2 (12:29→12:35)
[2017-11-18] MEDS ORDERED: AMIODARONE INJ 450 MG in DEXTROSE 5% 241 ML IV SCH ×4 (12:30→18:30)
[2017-11-18 15:36] LABS: Hematocrit 27.6 VOL% (42.0-52.0); Hemoglobin 8.6 GM/DL (14.0-18.0)
[2017-11-18 17:20] LABS: Basophils % 0.2 % (0.0-0.8); Eosinophils # 0.2 10*3/uL (0.0-0.87); Eosinophils % 1.7 % (0.00-10.9); Hematocrit 27.7 VOL% (42.0-52.0); Hemoglobin 8.7 GM/DL (14.0-18.0); Immature Granulocytes % 2.3 %; Immature Granulocytes Absolute 0.22 #; Lymphocytes # 1.1 10*3/uL (1.4-4.0); Lymphocytes % 11.7 % (21.2-54.2); Mean Corpuscular HGB Conc 31.4 GM/DL (32-36); Mean Corpuscular Hemoglobin 30 PG (27-34); Mean Corpuscular Volume 95.2 FL (87-102); Mean Platelet Volume 10.7 FL (9.6-12.0); NRBC # 0.03 10*3/uL; Neutrophils # 7.2 10*3/uL (1.4-7.4); Neutrophils % 74.1 % (38.7-73.9); Platelet Count 217 T/CUMM (130-400); Red Blood Count 2.91 MC/CUMM (3.8-5.5); Red Cell Distribution Width 15.9 % (9.3-17.3); White Blood Count 9.8 T/CUMM (4-12)
[2017-11-18] MEDS ORDERED: DILTIAZEM INJ 100 MG in SODIUM CHLORIDE 0.9% 100 ML IV SCH (17:30)
[2017-11-18] MEDS ORDERED: SODIUM CHLORIDE 0.9% 1,000 ML IV SCH (17:30)
[2017-11-18 17:31] LABS: PT Patient Result 10.4 SECS; Partial Thromboplastin Time 30.1 SECS (0-40)
[2017-11-18 17:38] LABS: Alanine Aminotransferase 83 U/L (16-61); Albumin 1.9 G/DL (3.4-5.0); Alkaline Phosphatase 78 U/L (45-117); Aspartate Amino Transferase 38 U/L (0-37); Bilirubin,Total < 0.39 MG/DL (0.2-1.0); Blood Urea Nitrogen 11 MG/DL (7-18); Calcium 7.5 MG/DL (8.5-10.1); Glucose 114 MG/DL (74-106); Osmolality,Calculated 278.4 MOS/KG (273-304); Potassium 4.1 MMOL/L (3.5-5.1); Sodium 140 MMOL/L (136-145); Total Protein 4.7 G/DL (6.4-8.3)
[2017-11-18] MEDS: PANTOPRAZOLE 40 MG VIAL IV SCH (21:50)
[2017-11-18] MEDS: ROSUVASTATIN 20 MG TABLET PO SCH (21:51)
[2017-11-18] MEDS: AMIODARONE INJ 450 MG in DEXTROSE 5% 241 ML IV SCH (23:27)
[2017-11-19 05:10] LABS: Basophils % 0.2 % (0.0-0.8); Eosinophils # 0.2 10*3/uL (0.0-0.87); Eosinophils % 1.9 % (0.00-10.9); Hematocrit 26.6 VOL% (42.0-52.0); Hemoglobin 8.4 GM/DL (14.0-18.0); Immature Granulocytes % 3.9 %; Immature Granulocytes Absolute 0.34 #; Lymphocytes # 1.3 10*3/uL (1.4-4.0); Lymphocytes % 15.2 % (21.2-54.2); Mean Corpuscular HGB Conc 31.6 GM/DL (32-36); Mean Corpuscular Hemoglobin 30 PG (27-34); Mean Corpuscular Volume 94.3 FL (87-102); Mean Platelet Volume 9.3 FL (9.6-12.0); Monocytes % 10.9 % (1.7-12.7); NRBC # 0.02 10*3/uL; Neutrophils # 5.9 10*3/uL (1.4-7.4); Neutrophils % 67.9 % (38.7-73.9); Platelet Count 288 T/CUMM (130-400); Red Blood Count 2.82 MC/CUMM (3.8-5.5); Red Cell Distribution Width 15.4 % (9.3-17.3); White Blood Count 8.8 T/CUMM (4-12)
[2017-11-19 05:17] LABS: PT Patient Result 10.5 SECS
[2017-11-19 05:51] LABS: Band Neutrophils 1 % (0-10); Eosinophils 1 % (0-10); Hypochromasia 1+; Lymphocytes 10 % (20-55); Microcytosis 1+; Myelocytes 1 %; Segmented Neutrophils 79 % (50-85); Total Cells Counted 100
[2017-11-19 05:52] LABS: Ovalocytes Slight; Platelet Estimate Normal
[2017-11-19 06:05] LABS: Calcium 7.5 MG/DL (8.5-10.1); Osmolality,Calculated 277.4 MOS/KG (273-304); Potassium 3.8 MMOL/L (3.5-5.1)
[2017-11-19] MEDS ORDERED: BISACODYL 5 MG TABLET PO ONE (08:00)
[2017-11-19] MEDS ORDERED: POLYETHYLENE GLYCOL POWDER 255 GM BOTTLE PO ONE (08:00)
[2017-11-19] MEDS ORDERED: PROPOFOL 200 MG/20 ML VIAL IV ONE (08:56)
[2017-11-19] MEDS: PANTOPRAZOLE 40 MG VIAL IV SCH ×2 (10:38→21:09)
[2017-11-19] MEDS: WARFARIN 7.5 MG TABLET PO SCH ×2 (10:38→17:24)
[2017-11-19] MEDS: CARVEDILOL 6.25 MG TABLET PO SCH ×2 (10:39→21:09)
[2017-11-19] MEDS: FERROUS SULFATE 325 MG TABLET PO SCH (10:39)
[2017-11-19] MEDS: DOCUSATE SODIUM 100 MG CAPSULE PO SCH (10:39)
[2017-11-19] MEDS: ENOXAPARIN 100 MG/ML SYRINGE SUBCUT SCH ×2 (10:40→21:16)
[2017-11-19] MEDS: ASPIRIN EC 81 MG TABLET PO SCH (10:40)
[2017-11-19] MEDS: Tiotropium Br/Olodaterol Hcl [Stiolto Respimat Inhal Spray] 4 GM IH SCH (17:16)
[2017-11-19] MEDS ORDERED: WARFARIN 7.5 MG TABLET PO SCH (18:00)
[2017-11-19] MEDS ORDERED: MAGNESIUM CITRATE 300 ML BOTTLE PO ONE (21:00)
[2017-11-19] MEDS: AMIODARONE 200 MG TABLET PO SCH (21:09)
[2017-11-19] MEDS: ASCORBIC ACID 500 MG TABLET PO SCH (21:09)
[2017-11-19] MEDS: ROSUVASTATIN 20 MG TABLET PO SCH (21:09)
[2017-11-19] MEDS: ZALEPLON 5 MG CAPSULE PO PRN (21:09)
[2017-11-19] MEDS: AMIODARONE INJ 450 MG in DEXTROSE 5% 241 ML IV SCH (21:16)
[2017-11-20 04:55] LABS: Basophils % 0.2 % (0.0-0.8); Eosinophils # 0.1 10*3/uL (0.0-0.87); Eosinophils % 1.7 % (0.00-10.9); Hematocrit 26.8 VOL% (42.0-52.0); Hemoglobin 8.6 GM/DL (14.0-18.0); Immature Granulocytes % 1.7 %; Immature Granulocytes Absolute 0.14 #; Lymphocytes # 0.9 10*3/uL (1.4-4.0); Lymphocytes % 11.3 % (21.2-54.2); Mean Corpuscular HGB Conc 32.1 GM/DL (32-36); Mean Corpuscular Hemoglobin 30 PG (27-34); Mean Corpuscular Volume 93.1 FL (87-102); Mean Platelet Volume 9.4 FL (9.6-12.0); Monocytes # 0.9 10*3/uL (0.11-0.8); Monocytes % 10.7 % (1.7-12.7); Neutrophils % 74.4 % (38.7-73.9); Platelet Count 284 T/CUMM (130-400); Red Blood Count 2.88 MC/CUMM (3.8-5.5); Red Cell Distribution Width 15.4 % (9.3-17.3); White Blood Count 8.1 T/CUMM (4-12)
[2017-11-20 05:04] LABS: INR 1.1
[2017-11-20 05:15] LABS: Hypochromasia 1+; Microcytosis 1+; Ovalocytes Slight
[2017-11-20 05:16] LABS: Platelet Estimate Normal
[2017-11-20 05:32] LABS: Calcium 7.4 MG/DL (8.5-10.1); Osmolality,Calculated 277.5 MOS/KG (273-304); Potassium 3.8 MMOL/L (3.5-5.1)
[2017-11-20] MEDS: AMIODARONE INJ 450 MG in DEXTROSE 5% 241 ML IV SCH (07:21)
[2017-11-20] MEDS: PANTOPRAZOLE 40 MG VIAL IV SCH ×2 (09:08→22:29)
[2017-11-20] MEDS: ENOXAPARIN 100 MG/ML SYRINGE SUBCUT SCH ×2 (09:08→22:27)
[2017-11-20] MEDS: ASPIRIN EC 81 MG TABLET PO SCH (09:09)
[2017-11-20] MEDS: AMIODARONE 200 MG TABLET PO SCH ×2 (09:09→22:28)
[2017-11-20] MEDS: ASCORBIC ACID 500 MG TABLET PO SCH ×2 (09:09→22:28)
[2017-11-20] MEDS: FERROUS SULFATE 325 MG TABLET PO SCH (09:09)
[2017-11-20] MEDS: DOCUSATE SODIUM 100 MG CAPSULE PO SCH (09:09)
[2017-11-20] MEDS: CARVEDILOL 6.25 MG TABLET PO SCH ×2 (09:09→22:28)
[2017-11-20] MEDS ORDERED: WARFARIN 2.5 MG TABLET PO ONE (15:01)
[2017-11-20] MEDS: CLOTRIMAZOLE 10 MG TROCHE PO SCH ×3 (15:08→22:28)
[2017-11-20] MEDS: WARFARIN 7.5 MG TABLET PO SCH (17:19)
[2017-11-20] MEDS: ZALEPLON 5 MG CAPSULE PO PRN (22:28)
[2017-11-20] MEDS: ROSUVASTATIN 20 MG TABLET PO SCH (22:28)
[2017-11-21] MEDS: ONDANSETRON 4 MG/2 ML VIAL IV PRN (02:07)
[2017-11-21 06:50] LABS: Basophils % 0.3 % (0.0-0.8); Eosinophils % 0.2 % (0.00-10.9); Hematocrit 24.4 VOL% (42.0-52.0); Hemoglobin 7.9 GM/DL (14.0-18.0); Immature Granulocytes % 1.4 %; Immature Granulocytes Absolute 0.15 #; Lymphocytes # 0.7 10*3/uL (1.4-4.0); Lymphocytes % 6.4 % (21.2-54.2); Mean Corpuscular HGB Conc 32.4 GM/DL (32-36); Mean Corpuscular Hemoglobin 30 PG (27-34); Mean Corpuscular Volume 91.4 FL (87-102); Mean Platelet Volume 9.7 FL (9.6-12.0); Monocytes # 0.6 10*3/uL (0.11-0.8); Monocytes % 5.7 % (1.7-12.7); Neutrophils # 9.4 10*3/uL (1.4-7.4); Platelet Count 323 T/CUMM (130-400); Red Blood Count 2.67 MC/CUMM (3.8-5.5); Red Cell Distribution Width 15.3 % (9.3-17.3); White Blood Count 10.9 T/CUMM (4-12)
[2017-11-21 07:01] LABS: INR 1.5; PT Patient Result 15.5 SECS
[2017-11-21 07:13] LABS: Anisocytosis 1+; Band Neutrophils 18 % (0-10); Lymphocytes 13 % (20-55); Macrocytosis 1+; Platelet Estimate Normal; Segmented Neutrophils 65 % (50-85); Total Cells Counted 100
[2017-11-21 07:16] LABS: Calcium 7.6 MG/DL (8.5-10.1); Osmolality,Calculated 277.7 MOS/KG (273-304); Potassium 4.4 MMOL/L (3.5-5.1)
[2017-11-21 09:30] LABS: Alanine Aminotransferase 52 U/L (16-61); Albumin 1.7 G/DL (3.4-5.0); Alkaline Phosphatase 74 U/L (45-117); Aspartate Amino Transferase 20 U/L (0-37); Bilirubin,Total < 0.39 MG/DL (0.2-1.0); Blood Urea Nitrogen 16 MG/DL (7-18); Calcium 7.9 MG/DL (8.5-10.1); Glucose 137 MG/DL (74-106); Osmolality,Calculated 277.7 MOS/KG (273-304); Potassium 4.4 MMOL/L (3.5-5.1); Sodium 138 MMOL/L (136-145); Total Protein 4.6 G/DL (6.4-8.3)
[2017-11-21] MEDS ORDERED: SODIUM CHLORIDE 0.9% 1,000 ML IV PRN ×3 (11:54→19:48)
[2017-11-21] MEDS ORDERED: HEPARIN/NACL 0.9% 2 UNITS/ML 500 ML IV ONE (12:10)
[2017-11-21] MEDS ORDERED: ALBUTEROL/IPRATROPIUM 3 ML NEB RESP TX ONE (12:33)
[2017-11-21] MEDS ORDERED: PROPOFOL 1,000 MG/100 ML BOTTLE IV ONE (14:29)
[2017-11-21] MEDS: PROPOFOL 1,000 MG/100 ML BOTTLE IV SCH ×2 (14:30→22:00)
[2017-11-21] MEDS: CLOTRIMAZOLE 10 MG TROCHE PO SCH ×4 (14:37→21:47)
[2017-11-21] MEDS: ASPIRIN EC 81 MG TABLET PO SCH (14:38)
[2017-11-21] MEDS: AMIODARONE 200 MG TABLET PO SCH ×2 (14:38→21:54)
[2017-11-21] MEDS: DOCUSATE SODIUM 100 MG CAPSULE PO SCH (14:38)
[2017-11-21] MEDS: CARVEDILOL 6.25 MG TABLET PO SCH ×2 (14:39→21:54)
[2017-11-21] MEDS: PANTOPRAZOLE 40 MG VIAL IV SCH ×2 (14:39→21:52)
[2017-11-21] MEDS: FERROUS SULFATE 325 MG TABLET PO SCH (14:39)
[2017-11-21] MEDS: ASCORBIC ACID 500 MG TABLET PO SCH ×2 (14:39→21:54)
[2017-11-21] MEDS ORDERED: HYDROmorphone 2 MG/1 ML VIAL ONE (14:43)
[2017-11-21] MEDS ORDERED: SEVOFLURANE 1 UNIT/15 MINUTE INH ONE (14:55)
[2017-11-21] MEDS ORDERED: CALCIUM CHLORIDE 1,000 MG/10 ML VIAL IV ONE (14:55)
[2017-11-21] MEDS ORDERED: fentaNYL 100 MCG/2 ML VIAL ONE ×2 (14:56→21:33)
[2017-11-21] MEDS ORDERED: MIDAZOLAM 2 MG/2 ML VIAL ONE (14:56)
[2017-11-21] MEDS ORDERED: PHENYLEPHRINE 10 MG/1 ML VIAL IV ONE (14:56)
[2017-11-21] MEDS ORDERED: MIDAZOLAM 10 MG/2 ML VIAL ONE ×2 (14:56→21:33)
[2017-11-21] MEDS ORDERED: SUCCINYLCHOLINE 200 MG/10 ML VIAL ONE (14:56)
[2017-11-21] MEDS ORDERED: LACTATED RINGERS 1,000 ML IV ONE ×2 (14:57→21:34)
[2017-11-21] MEDS ORDERED: ROCURONIUM 100 MG/10 ML VIAL IV ONE (14:57)
[2017-11-21] MEDS ORDERED: SODIUM CHLORIDE 0.9% 1,000 ML IV ONE ×2 (14:57→21:34)
[2017-11-21] MEDS ORDERED: cefOXitin 2,000 MG in SYRINGE 1 EACH IV SCH (15:00)
[2017-11-21] MEDS ORDERED: SODIUM BICARBONATE 50 MEQ/50 ML SYRINGE IV ONE (15:03)
[2017-11-21] MEDS: LACTATED RINGERS 1,000 ML IV SCH ×3 (15:16→22:08)
[2017-11-21 15:32] LABS: ABG Base Excess 7.3 MMOL/L (-2.5-2.5); ABG HCO3 32.6 MMOL/L (20-26); ABG PH 7.424 (7.35-7.45); ABG TCO2 34.2 MMOL/L (23-27)
[2017-11-21] MEDS ORDERED: hydrALAZINE 20 MG/1 ML VIAL IV PRN (15:48)
[2017-11-21 17:30] LABS: Apearance,Urine CLEAR (Clear); Bilirubin,Urine Negative (Negative); Blood, Urine Negative (Negative); Glucose,Urine (UA) Negative (Negative); Ketones,Urine Negative (Negative); Mucus,Urine Many /LPF (Occasional); Nitrite,Urine Negative (Negative); Protein,Urine 30 MG/DL; RBC,Urine 32 /HPF (0-4); Urine Color Yellow (Yellow); Urine Specific Gravity > 1.060 (1.001-1.035); Urine Urobilinogen < 2.0 EU/DL (0.2-1.0); WBC,Urine 2 /HPF (0-6)
[2017-11-21 17:45] LABS: Hemoglobin 7.9 GM/DL (14.0-18.0)
[2017-11-21] MEDS ORDERED: ALBUMIN 25% 25 GM in PREMIX 1 EACH IV ONE ×2 (18:20→22:00)
[2017-11-21] MEDS: cefOXitin 2,000 MG in SYRINGE 1 EACH IV SCH (19:15)
[2017-11-21] MEDS ORDERED: VECURONIUM 10 MG VIAL IV ONE (21:33)
[2017-11-21] MEDS: ROSUVASTATIN 20 MG TABLET PO SCH (21:54)
[2017-11-22] MEDS: MORPHINE 2 MG/1 ML SYRINGE IV PRN ×9 (00:33→23:53)
[2017-11-22] MEDS: cefOXitin 2,000 MG in SYRINGE 1 EACH IV SCH ×4 (01:22→19:34)
[2017-11-22] MEDS: LACTATED RINGERS 1,000 ML IV SCH ×3 (02:24→21:02)
[2017-11-22] MEDS: PROPOFOL 1,000 MG/100 ML BOTTLE IV SCH ×5 (03:39→20:00)
[2017-11-22 04:50] LABS: ABG Base Excess 8.1 MMOL/L (-2.5-2.5); ABG HCO3 33.7 MMOL/L (20-26); ABG Oxygen Saturation 97.9 % (95-100); ABG PCO2 54.2 MM HG (35-48); ABG PH 7.411 (7.35-7.45); ABG PO2 130.3 MM HG (80-95); ABG TCO2 35.3 MMOL/L (23-27)
[2017-11-22] MEDS: CLOTRIMAZOLE 10 MG TROCHE PO SCH ×5 (05:12→21:03)
[2017-11-22 05:14] LABS: Basophils % 0.4 % (0.0-0.8); Eosinophils # 0.1 10*3/uL (0.0-0.87); Eosinophils % 2.2 % (0.00-10.9); Hematocrit 22.2 VOL% (42.0-52.0); Hemoglobin 7.1 GM/DL (14.0-18.0); Immature Granulocytes % 0.7 %; Immature Granulocytes Absolute 0.04 #; Lymphocytes # 0.5 10*3/uL (1.4-4.0); Lymphocytes % 8.9 % (21.2-54.2); Mean Corpuscular Hemoglobin 30 PG (27-34); Mean Corpuscular Volume 93.7 FL (87-102); Mean Platelet Volume 9.8 FL (9.6-12.0); Monocytes # 0.3 10*3/uL (0.11-0.8); Neutrophils # 4.5 10*3/uL (1.4-7.4); Neutrophils % 82.8 % (38.7-73.9); Platelet Count 201 T/CUMM (130-400); Red Blood Count 2.37 MC/CUMM (3.8-5.5); Red Cell Distribution Width 14.8 % (9.3-17.3); White Blood Count 5.4 T/CUMM (4-12)
[2017-11-22 05:18] LABS: INR 1.8; PT Patient Result 18.5 SECS
[2017-11-22] MEDS ORDERED: SODIUM CHLORIDE 0.9% 1,000 ML IV PRN (05:36)
[2017-11-22 05:47] LABS: Calcium 7.6 MG/DL (8.5-10.1); Osmolality,Calculated 278.5 MOS/KG (273-304); Potassium 4.7 MMOL/L (3.5-5.1)
[2017-11-22] MEDS ORDERED: FUROSEMIDE 40 MG/4 ML VIAL ONE (05:47)
[2017-11-22] MEDS ORDERED: FUROSEMIDE 40 MG/4 ML VIAL IV ONE (06:00)
[2017-11-22 06:27] LABS: Hypochromasia Slight; Macrocytosis 1+; Platelet Estimate Adequate
[2017-11-22] MEDS: ALBUTEROL/IPRATROPIUM 3 ML NEB RESP TX SCH ×3 (07:16→18:48)
[2017-11-22] MEDS: AMIODARONE 200 MG TABLET PO SCH ×2 (08:18→20:00)
[2017-11-22] MEDS: CARVEDILOL 6.25 MG TABLET PO SCH ×2 (08:18→19:59)
[2017-11-22] MEDS: ASCORBIC ACID 500 MG TABLET PO SCH ×2 (08:18→19:59)
[2017-11-22] MEDS: PANTOPRAZOLE 40 MG VIAL IV SCH ×2 (08:19→19:57)
[2017-11-22] MEDS: FERROUS SULFATE 325 MG TABLET PO SCH (08:19)
[2017-11-22] MEDS: DOCUSATE SODIUM 100 MG CAPSULE PO SCH (08:19)
[2017-11-22] MEDS ORDERED: FUROSEMIDE 20 MG/2 ML VIAL IV ONE (15:45)
[2017-11-22] MEDS: ROSUVASTATIN 20 MG TABLET PO SCH (19:59)
[2017-11-23] MEDS: ALBUTEROL/IPRATROPIUM 3 ML NEB RESP TX SCH ×4 (00:39→20:26)
[2017-11-23] MEDS: PROPOFOL 1,000 MG/100 ML BOTTLE IV SCH ×5 (01:18→21:58)
[2017-11-23] MEDS: cefOXitin 2,000 MG in SYRINGE 1 EACH IV SCH ×4 (01:23→20:29)
[2017-11-23] MEDS: MORPHINE 2 MG/1 ML SYRINGE IV PRN ×6 (03:18→20:30)
[2017-11-23 05:38] LABS: ABG Base Excess 7.1 MMOL/L (-2.5-2.5); ABG HCO3 30.9 MMOL/L (20-26); ABG Oxygen Saturation 95.5 % (95-100); ABG PH 7.418 (7.35-7.45); ABG PO2 76.4 MM HG (80-95); ABG TCO2 29.9 MMOL/L (23-27)
[2017-11-23 05:44] LABS: Basophils % 0.3 % (0.0-0.8); Eosinophils # 0.3 10*3/uL (0.0-0.87); Hemoglobin 8.8 GM/DL (14.0-18.0); Immature Granulocytes % 1.4 %; Immature Granulocytes Absolute 0.12 #; Lymphocytes # 0.6 10*3/uL (1.4-4.0); Lymphocytes % 6.2 % (21.2-54.2); Mean Corpuscular HGB Conc 32.6 GM/DL (32-36); Mean Corpuscular Hemoglobin 29 PG (27-34); Mean Corpuscular Volume 90.3 FL (87-102); Mean Platelet Volume 9.9 FL (9.6-12.0); Monocytes # 0.7 10*3/uL (0.11-0.8); Monocytes % 7.3 % (1.7-12.7); Neutrophils # 7.2 10*3/uL (1.4-7.4); Neutrophils % 81.8 % (38.7-73.9); Platelet Count 174 T/CUMM (130-400); Red Blood Count 2.99 MC/CUMM (3.8-5.5); Red Cell Distribution Width 15.4 % (9.3-17.3); White Blood Count 8.9 T/CUMM (4-12)
[2017-11-23 05:57] LABS: Calcium 7.2 MG/DL (8.5-10.1); Osmolality,Calculated 277.5 MOS/KG (273-304); Potassium 3.6 MMOL/L (3.5-5.1)
[2017-11-23] MEDS: LACTATED RINGERS 1,000 ML IV SCH ×2 (05:57→18:06)
[2017-11-23] MEDS: CLOTRIMAZOLE 10 MG TROCHE PO SCH ×5 (05:59→21:51)
[2017-11-23 06:03] LABS: INR 1.2; PT Patient Result 12.7 SECS
[2017-11-23 06:36] LABS: Atypical Lymphocytes Few; Band Neutrophils 8 % (0-10); Lymphocytes 13 % (20-55); Macrocytosis 2+; Platelet Estimate Normal; Segmented Neutrophils 72 % (50-85); Total Cells Counted 100
[2017-11-23] MEDS ORDERED: FUROSEMIDE 40 MG/4 ML VIAL IV ONE (07:01)
[2017-11-23] MEDS ORDERED: DEXTROSE 50% 25 GM/50 ML VIAL IV ONE (07:03)
[2017-11-23] MEDS ORDERED: DEXTROSE 5% LACTATED RINGERS 1,000 ML IV SCH ×2 (07:10→10:29)
[2017-11-23] MEDS: DEXTROSE 50% 25 GM/50 ML VIAL IV PRN ×3 (07:13→14:04)
[2017-11-23] MEDS: PANTOPRAZOLE 40 MG VIAL IV SCH ×2 (08:24→21:52)
[2017-11-23] MEDS: AMIODARONE 200 MG TABLET PO SCH ×2 (08:24→21:52)
[2017-11-23] MEDS: FERROUS SULFATE 325 MG TABLET PO SCH (08:24)
[2017-11-23] MEDS: ASCORBIC ACID 500 MG TABLET PO SCH ×2 (08:24→21:50)
[2017-11-23] MEDS: DOCUSATE SODIUM 100 MG CAPSULE PO SCH (08:24)
[2017-11-23] MEDS: CARVEDILOL 6.25 MG TABLET PO SCH ×2 (08:24→21:51)
[2017-11-23] MEDS ORDERED: WARFARIN 5 MG TABLET PO ONE (08:38)
[2017-11-23] MEDS ORDERED: HEPARIN 5,000 UNIT/1 ML VIAL IV ONE (09:48)
[2017-11-23] MEDS: HEPARIN DRIP 25,000 UNITS/500 ML PREMIX IV SCH (10:01)
[2017-11-23] MEDS: HYDROmorphone 2 MG/1 ML VIAL IV PRN ×2 (12:01→14:55)
[2017-11-23] MEDS: DEXTROSE 10% 1,000 ML IV SCH (14:25)
[2017-11-23] MEDS: FUROSEMIDE 40 MG/4 ML VIAL IV SCH (16:48)
[2017-11-23] MEDS: WARFARIN 7.5 MG TABLET PO SCH (17:30)
[2017-11-23] MEDS: ROSUVASTATIN 20 MG TABLET PO SCH (21:50)
[2017-11-24] MEDS: DEXTROSE 50% 25 GM/50 ML VIAL IV PRN (00:12)
[2017-11-24] MEDS: MORPHINE 2 MG/1 ML SYRINGE IV PRN ×8 (00:13→22:57)
[2017-11-24] MEDS: ALBUTEROL/IPRATROPIUM 3 ML NEB RESP TX SCH ×4 (00:28→19:05)
[2017-11-24] MEDS: cefOXitin 2,000 MG in SYRINGE 1 EACH IV SCH ×4 (00:30→20:37)
[2017-11-24] MEDS: PROPOFOL 1,000 MG/100 ML BOTTLE IV SCH ×2 (03:54→15:44)
[2017-11-24 04:32] LABS: Basophils % 0.1 % (0.0-0.8); Eosinophils # 0.3 10*3/uL (0.0-0.87); Hematocrit 27.6 VOL% (42.0-52.0); Hemoglobin 8.7 GM/DL (14.0-18.0); Immature Granulocytes % 1.3 %; Immature Granulocytes Absolute 0.15 #; Lymphocytes # 0.8 10*3/uL (1.4-4.0); Lymphocytes % 7.1 % (21.2-54.2); Mean Corpuscular HGB Conc 31.5 GM/DL (32-36); Mean Corpuscular Hemoglobin 29 PG (27-34); Mean Platelet Volume 10.1 FL (9.6-12.0); Monocytes # 0.8 10*3/uL (0.11-0.8); Monocytes % 7.4 % (1.7-12.7); Neutrophils # 9.1 10*3/uL (1.4-7.4); Neutrophils % 81.1 % (38.7-73.9); Platelet Count 207 T/CUMM (130-400); Red Cell Distribution Width 15.3 % (9.3-17.3); White Blood Count 11.2 T/CUMM (4-12)
[2017-11-24 04:57] LABS: Calcium 7.2 MG/DL (8.5-10.1); Osmolality,Calculated 269.1 MOS/KG (273-304); Potassium 3.6 MMOL/L (3.5-5.1)
[2017-11-24 05:01] LABS: INR 1.2; PT Patient Result 12.7 SECS
[2017-11-24] MEDS: CLOTRIMAZOLE 10 MG TROCHE PO SCH ×5 (05:03→22:24)
[2017-11-24 05:04] LABS: Band Neutrophils 4 % (0-10); Eosinophils 1 % (0-10); Lymphocytes 11 % (20-55); Platelet Estimate Normal; Segmented Neutrophils 80 % (50-85); Total Cells Counted 100
[2017-11-24] MEDS: HEPARIN DRIP 25,000 UNITS/500 ML PREMIX IV SCH ×3 (06:01→23:14)
[2017-11-24] MEDS: DEXTROSE 10% 1,000 ML IV SCH ×3 (06:38→15:12)
[2017-11-24 07:51] LABS: ABG HCO3 30.8 MMOL/L (20-26); ABG Oxygen Saturation 96.2 % (95-100); ABG PCO2 47.7 MM HG (35-48); ABG PH 7.439 (7.35-7.45); ABG PO2 81.8 MM HG (80-95); ABG TCO2 28.6 MMOL/L (23-27)
[2017-11-24 08:52] LABS: ABG Base Excess 6.2 MMOL/L (-2.5-2.5); ABG HCO3 29.9 MMOL/L (20-26); ABG Oxygen Saturation 93.6 % (95-100); ABG PCO2 55.3 MM HG (35-48); ABG PH 7.378 (7.35-7.45); ABG TCO2 30.1 MMOL/L (23-27)
[2017-11-24] MEDS: DOCUSATE SODIUM 100 MG CAPSULE PO SCH (09:00)
[2017-11-24] MEDS: FERROUS SULFATE 325 MG TABLET PO SCH (09:00)
[2017-11-24] MEDS: CARVEDILOL 6.25 MG TABLET PO SCH ×2 (09:00→20:41)
[2017-11-24] MEDS: ASCORBIC ACID 500 MG TABLET PO SCH ×2 (09:00→20:41)
[2017-11-24] MEDS: PANTOPRAZOLE 40 MG VIAL IV SCH ×2 (09:00→20:35)
[2017-11-24] MEDS: FUROSEMIDE 40 MG/4 ML VIAL IV SCH ×2 (09:00→16:26)
[2017-11-24] MEDS: AMIODARONE 200 MG TABLET PO SCH ×2 (09:01→20:41)
[2017-11-24] MEDS ORDERED: ZINC OXIDE PASTE 113 GM TUBE TOP PRN (11:04)
[2017-11-24 12:29] LABS: ABG Base Excess 6.5 MMOL/L (-2.5-2.5); ABG HCO3 30.2 MMOL/L (20-26); ABG Oxygen Saturation 93.8 % (95-100); ABG PCO2 53.4 MM HG (35-48); ABG PH 7.393 (7.35-7.45); ABG PO2 71.4 MM HG (80-95); ABG TCO2 29.9 MMOL/L (23-27)
[2017-11-24] MEDS: WARFARIN 7.5 MG TABLET PO SCH (18:17)
[2017-11-24] MEDS: HEPARIN/NACL 0.9% 2 UNITS/ML 500 ML IV SCH (19:00)
[2017-11-24] MEDS: ROSUVASTATIN 20 MG TABLET PO SCH (20:41)
[2017-11-25] MEDS: ALBUTEROL/IPRATROPIUM 3 ML NEB RESP TX SCH ×4 (00:25→19:30)
[2017-11-25] MEDS: cefOXitin 2,000 MG in SYRINGE 1 EACH IV SCH ×4 (02:05→20:07)
[2017-11-25] MEDS: MORPHINE 2 MG/1 ML SYRINGE IV PRN ×8 (02:06→23:58)
[2017-11-25 05:13] LABS: Basophils % 0.3 % (0.0-0.8); Eosinophils # 0.4 10*3/uL (0.0-0.87); Eosinophils % 3.2 % (0.00-10.9); Hematocrit 31.8 VOL% (42.0-52.0); Hemoglobin 10.2 GM/DL (14.0-18.0); Immature Granulocytes % 1.9 %; Immature Granulocytes Absolute 0.24 #; Lymphocytes # 0.8 10*3/uL (1.4-4.0); Lymphocytes % 6.3 % (21.2-54.2); Mean Corpuscular HGB Conc 32.1 GM/DL (32-36); Mean Corpuscular Hemoglobin 29 PG (27-34); Mean Corpuscular Volume 90.3 FL (87-102); Mean Platelet Volume 9.9 FL (9.6-12.0); Monocytes # 0.8 10*3/uL (0.11-0.8); Monocytes % 6.6 % (1.7-12.7); Neutrophils # 10.2 10*3/uL (1.4-7.4); Neutrophils % 81.7 % (38.7-73.9); Platelet Count 273 T/CUMM (130-400); Red Blood Count 3.52 MC/CUMM (3.8-5.5); Red Cell Distribution Width 14.9 % (9.3-17.3); White Blood Count 12.5 T/CUMM (4-12)
[2017-11-25] MEDS: CLOTRIMAZOLE 10 MG TROCHE PO SCH ×5 (05:22→21:02)
[2017-11-25 05:33] LABS: ABG Base Excess 7.7 MMOL/L (-2.5-2.5); ABG HCO3 33.4 MMOL/L (20-26); ABG Oxygen Saturation 90.2 % (95-100); ABG PCO2 52.8 MM HG (35-48); ABG PH 7.419 (7.35-7.45); ABG PO2 61.1 MM HG (80-95)
[2017-11-25 05:33] LABS: Calcium 7.5 MG/DL (8.5-10.1); Osmolality,Calculated 269.1 MOS/KG (273-304); Potassium 3.1 MMOL/L (3.5-5.1)
[2017-11-25 05:58] LABS: Band Neutrophils 4 % (0-10); Eosinophils 2 % (0-10); Lymphocytes 4 % (20-55); Segmented Neutrophils 86 % (50-85); Total Cells Counted 100
[2017-11-25 05:59] LABS: Hypochromasia 1+; Platelet Estimate Adequate
[2017-11-25 06:00] LABS: Burr Cells Few
[2017-11-25 06:30] LABS: INR 1.3; PT Patient Result 13.6 SECS
[2017-11-25] MEDS: DEXTROSE 10% 1,000 ML IV SCH ×3 (08:45→23:57)
[2017-11-25] MEDS: AMIODARONE 200 MG TABLET PO SCH ×2 (09:01→20:21)
[2017-11-25] MEDS: CARVEDILOL 6.25 MG TABLET PO SCH ×2 (09:01→20:20)
[2017-11-25] MEDS: FERROUS SULFATE 325 MG TABLET PO SCH (09:01)
[2017-11-25] MEDS: DOCUSATE SODIUM 100 MG CAPSULE PO SCH (09:01)
[2017-11-25] MEDS: ASCORBIC ACID 500 MG TABLET PO SCH ×2 (09:01→20:21)
[2017-11-25] MEDS: PANTOPRAZOLE 40 MG VIAL IV SCH ×2 (09:05→20:21)
[2017-11-25] MEDS: FUROSEMIDE 40 MG/4 ML VIAL IV SCH ×2 (09:05→16:07)
[2017-11-25] MEDS: HEPARIN DRIP 25,000 UNITS/500 ML PREMIX IV SCH ×2 (09:11→17:29)
[2017-11-25] MEDS: POTASSIUM CHLORIDE 20 MEQ TABLET PO PRN ×4 (11:29→20:20)
[2017-11-25] MEDS: ONDANSETRON 4 MG/2 ML VIAL IV PRN (15:05)
[2017-11-25] MEDS: WARFARIN 7.5 MG TABLET PO SCH (18:27)
[2017-11-25] MEDS ORDERED: HEPARIN 5,000 UNIT/1 ML VIAL IV ONE (20:03)
[2017-11-25] MEDS: HEPARIN/NACL 0.9% 2 UNITS/ML 500 ML IV SCH (20:07)
[2017-11-25] MEDS: ROSUVASTATIN 20 MG TABLET PO SCH (20:21)
[2017-11-26] MEDS: ALBUTEROL/IPRATROPIUM 3 ML NEB RESP TX SCH ×4 (00:48→20:50)
[2017-11-26] MEDS: cefOXitin 2,000 MG in SYRINGE 1 EACH IV SCH ×4 (02:27→23:56)
[2017-11-26] MEDS: MORPHINE 2 MG/1 ML SYRINGE IV PRN ×5 (02:38→19:52)
[2017-11-26 04:47] LABS: Basophils % 0.2 % (0.0-0.8); Eosinophils # 0.5 10*3/uL (0.0-0.87); Eosinophils % 4.2 % (0.00-10.9); Hemoglobin 9.4 GM/DL (14.0-18.0); Immature Granulocytes % 4.3 %; Immature Granulocytes Absolute 0.47 #; Lymphocytes # 1.1 10*3/uL (1.4-4.0); Mean Corpuscular HGB Conc 31.3 GM/DL (32-36); Mean Corpuscular Hemoglobin 29 PG (27-34); Mean Corpuscular Volume 93.2 FL (87-102); Mean Platelet Volume 10.1 FL (9.6-12.0); Monocytes # 0.9 10*3/uL (0.11-0.8); Monocytes % 8.3 % (1.7-12.7); Neutrophils # 7.9 10*3/uL (1.4-7.4); Platelet Count 342 T/CUMM (130-400); Red Blood Count 3.22 MC/CUMM (3.8-5.5); Red Cell Distribution Width 14.6 % (9.3-17.3); White Blood Count 10.9 T/CUMM (4-12)
[2017-11-26] MEDS: CLOTRIMAZOLE 10 MG TROCHE PO SCH ×5 (05:00→21:25)
[2017-11-26 05:18] LABS: Band Neutrophils 4 % (0-10); Eosinophils 3 % (0-10); Lymphocytes 6 % (20-55); Segmented Neutrophils 80 % (50-85); Total Cells Counted 100
[2017-11-26 05:19] LABS: Giant Platelets Few; Hypochromasia 1+; Macrocytosis Slight; Ovalocytes Slight; Platelet Estimate Adequate
[2017-11-26 05:28] LABS: Osmolality,Calculated 267.2 MOS/KG (273-304); Potassium 3.8 MMOL/L (3.5-5.1)
[2017-11-26 06:18] LABS: INR 1.7; PT Patient Result 17.7 SECS
[2017-11-26] MEDS: POTASSIUM CHLORIDE 20 MEQ TABLET PO PRN (07:18)
[2017-11-26] MEDS: FUROSEMIDE 40 MG/4 ML VIAL IV SCH ×2 (07:47→17:01)
[2017-11-26] MEDS: PANTOPRAZOLE 40 MG VIAL IV SCH ×2 (08:00→21:24)
[2017-11-26] MEDS: ASCORBIC ACID 500 MG TABLET PO SCH ×2 (08:00→21:25)
[2017-11-26] MEDS: AMIODARONE 200 MG TABLET PO SCH ×2 (08:00→21:25)
[2017-11-26] MEDS: FERROUS SULFATE 325 MG TABLET PO SCH (08:00)
[2017-11-26] MEDS: CARVEDILOL 6.25 MG TABLET PO SCH ×2 (08:00→21:25)
[2017-11-26] MEDS: DOCUSATE SODIUM 100 MG CAPSULE PO SCH (08:00)
[2017-11-26] MEDS: HEPARIN DRIP 25,000 UNITS/500 ML PREMIX IV SCH (10:00)
[2017-11-26] MEDS: HYDROmorphone 2 MG/1 ML VIAL IV PRN (10:00)
[2017-11-26] MEDS: DEXTROSE 10% 1,000 ML IV SCH ×3 (10:28→19:53)
[2017-11-26] MEDS ORDERED: NITROGLYCERIN SL 0.4 MG TABLET SL PRN (11:09)
[2017-11-26] MEDS: ASPIRIN EC 81 MG TABLET PO SCH (12:44)
[2017-11-26] MEDS: WARFARIN 7.5 MG TABLET PO SCH (17:02)
[2017-11-26] MEDS: guaiFENesin/DM ER 600-30 MG TABLET PO PRN (21:25)
[2017-11-26] MEDS: ROSUVASTATIN 20 MG TABLET PO SCH (21:25)
[2017-11-27] MEDS: MORPHINE 2 MG/1 ML SYRINGE IV PRN ×4 (00:10→16:16)
[2017-11-27] MEDS: ONDANSETRON 4 MG/2 ML VIAL IV PRN ×3 (00:13→08:11)
[2017-11-27] MEDS: ALBUTEROL/IPRATROPIUM 3 ML NEB RESP TX SCH ×4 (01:22→19:29)
[2017-11-27] MEDS: HEPARIN DRIP 25,000 UNITS/500 ML PREMIX IV SCH (03:15)
[2017-11-27] MEDS: HYDROmorphone 2 MG/1 ML VIAL IV PRN (04:36)
[2017-11-27 05:04] LABS: INR 2.5
[2017-11-27 05:05] LABS: Basophils % 0.3 % (0.0-0.8); Eosinophils # 0.5 10*3/uL (0.0-0.87); Eosinophils % 3.6 % (0.00-10.9); Hematocrit 30.3 VOL% (42.0-52.0); Hemoglobin 9.8 GM/DL (14.0-18.0); Immature Granulocytes % 5.8 %; Immature Granulocytes Absolute 0.75 #; Lymphocytes # 1.1 10*3/uL (1.4-4.0); Lymphocytes % 8.6 % (21.2-54.2); Mean Corpuscular HGB Conc 32.3 GM/DL (32-36); Mean Corpuscular Hemoglobin 29 PG (27-34); Mean Corpuscular Volume 90.2 FL (87-102); Mean Platelet Volume 10.1 FL (9.6-12.0); Monocytes # 0.9 10*3/uL (0.11-0.8); Monocytes % 7.1 % (1.7-12.7); Neutrophils # 9.7 10*3/uL (1.4-7.4); Neutrophils % 74.6 % (38.7-73.9); Platelet Count 435 T/CUMM (130-400); Red Blood Count 3.36 MC/CUMM (3.8-5.5); Red Cell Distribution Width 14.5 % (9.3-17.3)
[2017-11-27] MEDS: DEXTROSE 10% 1,000 ML IV SCH ×2 (05:06→21:30)
[2017-11-27 05:08] LABS: PT Patient Result 25.9 SECS
[2017-11-27 05:27] LABS: Band Neutrophils 4 % (0-10); Lymphocytes 9 % (20-55); Platelet Estimate Increased; Segmented Neutrophils 85 % (50-85); Total Cells Counted 100
[2017-11-27 05:28] LABS: Giant Platelets Few; Hypochromasia 1+; Ovalocytes Slight
[2017-11-27 06:00] LABS: Calcium 7.3 MG/DL (8.5-10.1); Osmolality,Calculated 270.1 MOS/KG (273-304); Potassium 3.5 MMOL/L (3.5-5.1)
[2017-11-27] MEDS: cefOXitin 2,000 MG in SYRINGE 1 EACH IV SCH ×3 (06:36→18:38)
[2017-11-27] MEDS: CLOTRIMAZOLE 10 MG TROCHE PO SCH ×5 (06:47→21:20)
[2017-11-27] MEDS: FUROSEMIDE 40 MG/4 ML VIAL IV SCH ×2 (08:16→16:09)
[2017-11-27] MEDS: PANTOPRAZOLE 40 MG VIAL IV SCH ×2 (08:19→21:20)
[2017-11-27] MEDS: ASPIRIN EC 81 MG TABLET PO SCH (08:21)
[2017-11-27] MEDS: guaiFENesin/DM ER 600-30 MG TABLET PO PRN (08:21)
[2017-11-27] MEDS: ASCORBIC ACID 500 MG TABLET PO SCH ×2 (08:21→21:19)
[2017-11-27] MEDS: FERROUS SULFATE 325 MG TABLET PO SCH (08:21)
[2017-11-27] MEDS: DOCUSATE SODIUM 100 MG CAPSULE PO SCH (08:21)
[2017-11-27] MEDS: CARVEDILOL 6.25 MG TABLET PO SCH ×2 (08:21→21:20)
[2017-11-27] MEDS: AMIODARONE 200 MG TABLET PO SCH ×2 (08:21→21:20)
[2017-11-27] MEDS: Tiotropium Br/Olodaterol Hcl [Stiolto Respimat Inhal Spray] 4 GM IH SCH (08:22)
[2017-11-27] MEDS: WARFARIN 7.5 MG TABLET PO SCH (18:39)
[2017-11-27] MEDS: ROSUVASTATIN 20 MG TABLET PO SCH (21:20)
[2017-11-28] MEDS: ALBUTEROL/IPRATROPIUM 3 ML NEB RESP TX SCH ×4 (00:04→18:12)
[2017-11-28] MEDS: cefOXitin 2,000 MG in SYRINGE 1 EACH IV SCH ×2 (00:19→07:00)
[2017-11-28] MEDS: HYDROmorphone 2 MG/1 ML VIAL IV PRN ×6 (01:50→20:41)
[2017-11-28 05:19] LABS: Basophils # 0.1 10*3/uL (0.0-0.2); Basophils % 0.6 % (0.0-0.8); Eosinophils # 0.5 10*3/uL (0.0-0.87); Eosinophils % 4.5 % (0.00-10.9); Hematocrit 30.6 VOL% (42.0-52.0); Hemoglobin 9.7 GM/DL (14.0-18.0); Immature Granulocytes % 6.6 %; Immature Granulocytes Absolute 0.72 #; Lymphocytes # 1.2 10*3/uL (1.4-4.0); Lymphocytes % 10.6 % (21.2-54.2); Mean Corpuscular HGB Conc 31.7 GM/DL (32-36); Mean Corpuscular Hemoglobin 29 PG (27-34); Mean Corpuscular Volume 90.5 FL (87-102); Mean Platelet Volume 10.1 FL (9.6-12.0); Monocytes # 0.8 10*3/uL (0.11-0.8); Monocytes % 7.6 % (1.7-12.7); Neutrophils # 7.7 10*3/uL (1.4-7.4); Neutrophils % 70.1 % (38.7-73.9); Platelet Count 576 T/CUMM (130-400); Red Blood Count 3.38 MC/CUMM (3.8-5.5); Red Cell Distribution Width 14.3 % (9.3-17.3)
[2017-11-28 05:28] LABS: INR 3.5
[2017-11-28 05:29] LABS: PT Patient Result 35.3 SECS
[2017-11-28 05:56] LABS: Calcium 7.2 MG/DL (8.5-10.1); Osmolality,Calculated 272.7 MOS/KG (273-304); Potassium 3.8 MMOL/L (3.5-5.1)
[2017-11-28] MEDS: CLOTRIMAZOLE 10 MG TROCHE PO SCH ×5 (06:00→21:01)
[2017-11-28 06:09] LABS: Band Neutrophils 4 % (0-10); Eosinophils 9 % (0-10); Lymphocytes 6 % (20-55); Segmented Neutrophils 73 % (50-85); Total Cells Counted 100
[2017-11-28 06:10] LABS: Platelet Estimate Increased
[2017-11-28 06:11] LABS: Giant Platelets Few; Hypochromasia 1+
[2017-11-28 06:12] LABS: Microcytosis Slight
[2017-11-28] MEDS: PANTOPRAZOLE 40 MG VIAL IV SCH ×2 (08:54→20:37)
[2017-11-28] MEDS: ASPIRIN EC 81 MG TABLET PO SCH (08:54)
[2017-11-28] MEDS: FUROSEMIDE 40 MG/4 ML VIAL IV SCH ×2 (08:54→15:34)
[2017-11-28] MEDS: ASCORBIC ACID 500 MG TABLET PO SCH ×2 (08:54→20:33)
[2017-11-28] MEDS: FERROUS SULFATE 325 MG TABLET PO SCH (08:55)
[2017-11-28] MEDS: DOCUSATE SODIUM 100 MG CAPSULE PO SCH ×2 (08:55→20:32)
[2017-11-28] MEDS: AMIODARONE 200 MG TABLET PO SCH ×2 (08:56→20:33)
[2017-11-28] MEDS: CARVEDILOL 6.25 MG TABLET PO SCH ×2 (08:56→20:33)
[2017-11-28] MEDS: Tiotropium Br/Olodaterol Hcl [Stiolto Respimat Inhal Spray] 4 GM IH SCH (09:22)
[2017-11-28] MEDS: BISACODYL 10 MG SUPP RECTAL SCH (11:28)
[2017-11-28] MEDS: DEXTROSE 10% 1,000 ML IV SCH (14:22)
[2017-11-28] MEDS: ROSUVASTATIN 20 MG TABLET PO SCH (20:32)
[2017-11-29] MEDS: ALBUTEROL/IPRATROPIUM 3 ML NEB RESP TX SCH ×4 (00:19→19:23)
[2017-11-29] MEDS: HYDROmorphone 2 MG/1 ML VIAL IV PRN ×5 (03:40→20:35)
[2017-11-29 05:40] LABS: Calcium 7.6 MG/DL (8.5-10.1); Osmolality,Calculated 275.5 MOS/KG (273-304); Potassium 3.3 MMOL/L (3.5-5.1)
[2017-11-29 05:47] LABS: INR 3.3; PT Patient Result 33.7 SECS
[2017-11-29 06:12] LABS: Basophils # 0.1 10*3/uL (0.0-0.2); Basophils % 0.6 % (0.0-0.8); Eosinophils # 0.5 10*3/uL (0.0-0.87); Eosinophils % 4.2 % (0.00-10.9); Hematocrit 28.2 VOL% (42.0-52.0); Hemoglobin 9.4 GM/DL (14.0-18.0); Immature Granulocytes % 7.6 %; Immature Granulocytes Absolute 0.95 #; Lymphocytes # 1.3 10*3/uL (1.4-4.0); Lymphocytes % 10.4 % (21.2-54.2); Mean Corpuscular HGB Conc 33.3 GM/DL (32-36); Mean Corpuscular Hemoglobin 30 PG (27-34); Mean Corpuscular Volume 88.7 FL (87-102); Monocytes # 0.9 10*3/uL (0.11-0.8); Monocytes % 7.2 % (1.7-12.7); Neutrophils # 8.8 10*3/uL (1.4-7.4); Platelet Count 675 T/CUMM (130-400); Red Blood Count 3.18 MC/CUMM (3.8-5.5); Red Cell Distribution Width 14.3 % (9.3-17.3); White Blood Count 12.5 T/CUMM (4-12)
[2017-11-29 06:18] LABS: Eosinophils 3 % (0-10); Giant Platelets Few; Hypochromasia 1+; Lymphocytes 2 % (20-55); Microcytosis Slight; Platelet Estimate Adequate; Segmented Neutrophils 85 % (50-85); Total Cells Counted 100
[2017-11-29] MEDS: DEXTROSE 10% 1,000 ML IV SCH (08:28)
[2017-11-29] MEDS: PANTOPRAZOLE 40 MG VIAL IV SCH ×2 (09:25→20:34)
[2017-11-29] MEDS: ASPIRIN EC 81 MG TABLET PO SCH (09:27)
[2017-11-29] MEDS: DOCUSATE SODIUM 100 MG CAPSULE PO SCH ×2 (09:27→20:29)
[2017-11-29] MEDS: AMIODARONE 200 MG TABLET PO SCH ×2 (09:27→20:29)
[2017-11-29] MEDS: ASCORBIC ACID 500 MG TABLET PO SCH ×2 (09:28→20:29)
[2017-11-29] MEDS: FERROUS SULFATE 325 MG TABLET PO SCH (09:29)
[2017-11-29] MEDS: CARVEDILOL 6.25 MG TABLET PO SCH ×2 (09:29→20:29)
[2017-11-29] MEDS: FUROSEMIDE 40 MG/4 ML VIAL IV SCH ×2 (09:30→16:07)
[2017-11-29] MEDS: CLOTRIMAZOLE 10 MG TROCHE PO SCH ×4 (09:31→21:52)
[2017-11-29] MEDS: Tiotropium Br/Olodaterol Hcl [Stiolto Respimat Inhal Spray] 4 GM IH SCH (09:34)
[2017-11-29] MEDS: BISACODYL 10 MG SUPP RECTAL SCH (09:34)
[2017-11-29] MEDS: POTASSIUM CHLORIDE 20 MEQ TABLET PO SCH ×2 (11:14→20:29)
[2017-11-29] MEDS: guaiFENesin/DM ER 600-30 MG TABLET PO PRN (16:07)
[2017-11-29] MEDS: MEROPENEM 500 MG in SYRINGE 1 EACH IV SCH ×2 (16:07→22:17)
[2017-11-29] MEDS ORDERED: WARFARIN 5 MG TABLET PO SCH (18:00)
[2017-11-29] MEDS: ROSUVASTATIN 20 MG TABLET PO SCH (20:29)
[2017-11-30] MEDS: ALBUTEROL/IPRATROPIUM 3 ML NEB RESP TX SCH ×4 (00:17→19:48)
[2017-11-30] MEDS: HYDROmorphone 2 MG/1 ML VIAL IV PRN ×4 (01:09→23:22)
[2017-11-30 05:37] LABS: Basophils # 0.1 10*3/uL (0.0-0.2); Basophils % 0.3 % (0.0-0.8); Eosinophils # 0.5 10*3/uL (0.0-0.87); Eosinophils % 2.5 % (0.00-10.9); Hematocrit 29.6 VOL% (42.0-52.0); Hemoglobin 9.7 GM/DL (14.0-18.0); Immature Granulocytes % 4.4 %; Immature Granulocytes Absolute 0.78 #; Lymphocytes # 1.2 10*3/uL (1.4-4.0); Lymphocytes % 6.8 % (21.2-54.2); Mean Corpuscular HGB Conc 32.8 GM/DL (32-36); Mean Corpuscular Hemoglobin 29 PG (27-34); Mean Corpuscular Volume 89.4 FL (87-102); Mean Platelet Volume 10.4 FL (9.6-12.0); Monocytes # 1.2 10*3/uL (0.11-0.8); Monocytes % 6.5 % (1.7-12.7); Neutrophils # 14.1 10*3/uL (1.4-7.4); Neutrophils % 79.5 % (38.7-73.9); Platelet Count 841 T/CUMM (130-400); Red Blood Count 3.31 MC/CUMM (3.8-5.5); Red Cell Distribution Width 14.5 % (9.3-17.3); White Blood Count 17.7 T/CUMM (4-12)
[2017-11-30 05:48] LABS: INR 2.7
[2017-11-30 05:49] LABS: PT Patient Result 27.4 SECS
[2017-11-30] MEDS: MEROPENEM 500 MG in SYRINGE 1 EACH IV SCH ×3 (06:04→21:36)
[2017-11-30] MEDS: CLOTRIMAZOLE 10 MG TROCHE PO SCH ×4 (06:17→22:07)
[2017-11-30 06:19] LABS: Calcium 7.6 MG/DL (8.5-10.1); Osmolality,Calculated 273.7 MOS/KG (273-304)
[2017-11-30 06:35] LABS: Band Neutrophils 4 % (0-10); Eosinophils 3 % (0-10); Lymphocytes 6 % (20-55); Segmented Neutrophils 82 % (50-85); Total Cells Counted 100
[2017-11-30 06:36] LABS: Giant Platelets Few; Hypochromasia 1+; Microcytosis Slight; Ovalocytes Slight; Platelet Estimate Increased
[2017-11-30] MEDS: POTASSIUM CHLORIDE 20 MEQ TABLET PO SCH ×2 (08:22→21:33)
[2017-11-30] MEDS: FERROUS SULFATE 325 MG TABLET PO SCH (08:23)
[2017-11-30] MEDS: CARVEDILOL 6.25 MG TABLET PO SCH ×2 (08:23→21:33)
[2017-11-30] MEDS: AMIODARONE 200 MG TABLET PO SCH ×2 (08:24→21:33)
[2017-11-30] MEDS: DOCUSATE SODIUM 100 MG CAPSULE PO SCH ×2 (08:24→21:33)
[2017-11-30] MEDS: ASPIRIN EC 81 MG TABLET PO SCH (08:24)
[2017-11-30] MEDS: FUROSEMIDE 40 MG/4 ML VIAL IV SCH ×2 (08:25→17:41)
[2017-11-30] MEDS: PANTOPRAZOLE 40 MG VIAL IV SCH ×2 (08:26→21:34)
[2017-11-30] MEDS: BISACODYL 10 MG SUPP RECTAL SCH (08:34)
[2017-11-30] MEDS: Tiotropium Br/Olodaterol Hcl [Stiolto Respimat Inhal Spray] 4 GM IH SCH (08:34)
[2017-11-30] MEDS: ASCORBIC ACID 500 MG TABLET PO SCH ×2 (09:03→21:33)
[2017-11-30] MEDS ORDERED: WARFARIN 10 MG TABLET PO ONE (13:47)
[2017-11-30] MEDS: ROSUVASTATIN 20 MG TABLET PO SCH (21:34)
[2017-11-30] MEDS: DEXTROSE 10% 1,000 ML IV SCH (22:51)
[2017-12-01] MEDS: ALBUTEROL/IPRATROPIUM 3 ML NEB RESP TX SCH ×4 (00:35→19:53)
[2017-12-01 05:25] LABS: Basophils # 0.1 10*3/uL (0.0-0.2); Basophils % 0.4 % (0.0-0.8); Eosinophils # 0.4 10*3/uL (0.0-0.87); Eosinophils % 2.7 % (0.00-10.9); Hematocrit 27.1 VOL% (42.0-52.0); Hemoglobin 9.1 GM/DL (14.0-18.0); Immature Granulocytes % 4.6 %; Immature Granulocytes Absolute 0.73 #; Lymphocytes # 1.4 10*3/uL (1.4-4.0); Lymphocytes % 9.1 % (21.2-54.2); Mean Corpuscular HGB Conc 33.6 GM/DL (32-36); Mean Corpuscular Hemoglobin 30 PG (27-34); Mean Corpuscular Volume 89.1 FL (87-102); Mean Platelet Volume 9.8 FL (9.6-12.0); Monocytes # 1.4 10*3/uL (0.11-0.8); Monocytes % 8.8 % (1.7-12.7); Neutrophils # 11.7 10*3/uL (1.4-7.4); Neutrophils % 74.4 % (38.7-73.9); Platelet Count 867 T/CUMM (130-400); Red Blood Count 3.04 MC/CUMM (3.8-5.5); Red Cell Distribution Width 14.5 % (9.3-17.3); White Blood Count 15.8 T/CUMM (4-12)
[2017-12-01 05:33] LABS: INR 3.4
[2017-12-01 05:37] LABS: PT Patient Result 33.9 SECS
[2017-12-01] MEDS: CLOTRIMAZOLE 10 MG TROCHE PO SCH ×5 (05:42→21:56)
[2017-12-01] MEDS: MEROPENEM 500 MG in SYRINGE 1 EACH IV SCH ×3 (05:43→21:54)
[2017-12-01 05:52] LABS: Band Neutrophils 1 % (0-10); Eosinophils 1 % (0-10); Giant Platelets Few; Hypochromasia 1+; Lymphocytes 13 % (20-55); Platelet Estimate Increased; Segmented Neutrophils 81 % (50-85); Total Cells Counted 100
[2017-12-01 05:53] LABS: Microcytosis Slight; Ovalocytes Slight
[2017-12-01 06:00] LABS: Calcium 7.1 MG/DL (8.5-10.1); Osmolality,Calculated 275.5 MOS/KG (273-304); Potassium 3.6 MMOL/L (3.5-5.1)
[2017-12-01] MEDS: ASCORBIC ACID 500 MG TABLET PO SCH ×2 (08:36→21:52)
[2017-12-01] MEDS: BISACODYL 10 MG SUPP RECTAL SCH (08:36)
[2017-12-01] MEDS: FERROUS SULFATE 325 MG TABLET PO SCH (08:37)
[2017-12-01] MEDS: POTASSIUM CHLORIDE 20 MEQ TABLET PO SCH ×2 (08:37→21:50)
[2017-12-01] MEDS: POTASSIUM CHLORIDE 20 MEQ TABLET PO PRN (08:37)
[2017-12-01] MEDS: ASPIRIN EC 81 MG TABLET PO SCH (08:37)
[2017-12-01] MEDS: DOCUSATE SODIUM 100 MG CAPSULE PO SCH ×2 (08:37→21:51)
[2017-12-01] MEDS: CARVEDILOL 6.25 MG TABLET PO SCH ×2 (08:37→21:50)
[2017-12-01] MEDS: AMIODARONE 200 MG TABLET PO SCH ×2 (08:37→21:52)
[2017-12-01] MEDS: PANTOPRAZOLE 40 MG VIAL IV SCH ×2 (08:38→21:52)
[2017-12-01] MEDS: FUROSEMIDE 40 MG/4 ML VIAL IV SCH ×2 (08:40→15:47)
[2017-12-01] MEDS: CLINDAMYCIN INJ 600 MG in PREMIX 1 EACH IV SCH ×2 (10:29→17:58)
[2017-12-01] MEDS: HYDROmorphone 2 MG/1 ML VIAL IV PRN (10:34)
[2017-12-01] MEDS: Tiotropium Br/Olodaterol Hcl [Stiolto Respimat Inhal Spray] 4 GM IH SCH (11:12)
[2017-12-01] MEDS ORDERED: WARFARIN 7.5 MG TABLET PO SCH ×2 (18:00→18:30)
[2017-12-01] MEDS: ROSUVASTATIN 20 MG TABLET PO SCH (21:50)
[2017-12-02] MEDS: ALBUTEROL/IPRATROPIUM 3 ML NEB RESP TX SCH ×4 (01:36→19:15)
[2017-12-02] MEDS: CLINDAMYCIN INJ 600 MG in PREMIX 1 EACH IV SCH ×3 (02:00→17:40)
[2017-12-02] MEDS: CLOTRIMAZOLE 10 MG TROCHE PO SCH ×5 (06:00→21:57)
[2017-12-02] MEDS: MEROPENEM 500 MG in SYRINGE 1 EACH IV SCH ×3 (06:01→21:57)
[2017-12-02 06:21] LABS: Basophils # 0.1 10*3/uL (0.0-0.2); Basophils % 0.4 % (0.0-0.8); Eosinophils # 0.2 10*3/uL (0.0-0.87); Hematocrit 29.8 VOL% (42.0-52.0); Hemoglobin 9.4 GM/DL (14.0-18.0); Immature Granulocytes % 3.7 %; Immature Granulocytes Absolute 0.61 #; Lymphocytes # 1.4 10*3/uL (1.4-4.0); Lymphocytes % 8.3 % (21.2-54.2); Mean Corpuscular HGB Conc 31.5 GM/DL (32-36); Mean Corpuscular Hemoglobin 29 PG (27-34); Mean Corpuscular Volume 91.4 FL (87-102); Mean Platelet Volume 9.4 FL (9.6-12.0); Monocytes # 1.3 10*3/uL (0.11-0.8); Monocytes % 7.9 % (1.7-12.7); Neutrophils # 12.8 10*3/uL (1.4-7.4); Neutrophils % 78.7 % (38.7-73.9); Platelet Count 946 T/CUMM (130-400); Red Blood Count 3.26 MC/CUMM (3.8-5.5); Red Cell Distribution Width 14.6 % (9.3-17.3); White Blood Count 16.3 T/CUMM (4-12)
[2017-12-02 06:42] LABS: Eosinophils 2 % (0-10); Hypochromasia 1+; Lymphocytes 9 % (20-55); Ovalocytes Slight; Platelet Estimate Increased; Segmented Neutrophils 78 % (50-85); Total Cells Counted 100
[2017-12-02 06:43] LABS: Giant Platelets Few; Microcytosis Slight
[2017-12-02 07:06] LABS: Calcium 7.7 MG/DL (8.5-10.1); Osmolality,Calculated 274.5 MOS/KG (273-304); Potassium 3.9 MMOL/L (3.5-5.1)
[2017-12-02] MEDS: BISACODYL 10 MG SUPP RECTAL SCH (08:26)
[2017-12-02] MEDS: POTASSIUM CHLORIDE 20 MEQ TABLET PO SCH ×2 (08:26→21:52)
[2017-12-02] MEDS: ASCORBIC ACID 500 MG TABLET PO SCH ×2 (08:26→21:46)
[2017-12-02] MEDS: ASPIRIN EC 81 MG TABLET PO SCH (08:26)
[2017-12-02] MEDS: AMIODARONE 200 MG TABLET PO SCH (08:27)
[2017-12-02] MEDS: CARVEDILOL 6.25 MG TABLET PO SCH ×2 (08:27→21:46)
[2017-12-02] MEDS: FERROUS SULFATE 325 MG TABLET PO SCH ×2 (08:27→21:46)
[2017-12-02] MEDS: FUROSEMIDE 40 MG/4 ML VIAL IV SCH ×2 (08:27→15:25)
[2017-12-02] MEDS: DOCUSATE SODIUM 100 MG CAPSULE PO SCH ×2 (08:27→21:45)
[2017-12-02] MEDS: PANTOPRAZOLE 40 MG VIAL IV SCH ×2 (08:36→21:52)
[2017-12-02] MEDS: Tiotropium Br/Olodaterol Hcl [Stiolto Respimat Inhal Spray] 4 GM IH SCH (08:37)
[2017-12-02 08:59] LABS: PT Patient Result 49.6 SECS
[2017-12-02] MEDS: ROSUVASTATIN 20 MG TABLET PO SCH (21:45)
[2017-12-03] MEDS: ALBUTEROL/IPRATROPIUM 3 ML NEB RESP TX SCH ×4 (02:15→19:03)
[2017-12-03] MEDS: CLINDAMYCIN INJ 600 MG in PREMIX 1 EACH IV SCH ×3 (02:24→19:05)
[2017-12-03] MEDS: CLOTRIMAZOLE 10 MG TROCHE PO SCH ×5 (06:20→22:11)
[2017-12-03] MEDS: MEROPENEM 500 MG in SYRINGE 1 EACH IV SCH (06:21)
[2017-12-03 06:30] LABS: Basophils # 0.1 10*3/uL (0.0-0.2); Basophils % 0.5 % (0.0-0.8); Eosinophils # 0.1 10*3/uL (0.0-0.87); Eosinophils % 0.8 % (0.00-10.9); Hemoglobin 8.8 GM/DL (14.0-18.0); Immature Granulocytes Absolute 0.61 #; Lymphocytes # 1.5 10*3/uL (1.4-4.0); Lymphocytes % 9.6 % (21.2-54.2); Mean Corpuscular HGB Conc 31.4 GM/DL (32-36); Mean Corpuscular Hemoglobin 29 PG (27-34); Mean Corpuscular Volume 90.9 FL (87-102); Mean Platelet Volume 9.4 FL (9.6-12.0); Monocytes # 1.4 10*3/uL (0.11-0.8); Monocytes % 9.1 % (1.7-12.7); Neutrophils # 11.5 10*3/uL (1.4-7.4); Platelet Count 899 T/CUMM (130-400); Red Blood Count 3.08 MC/CUMM (3.8-5.5); Red Cell Distribution Width 14.6 % (9.3-17.3); White Blood Count 15.1 T/CUMM (4-12)
[2017-12-03 06:46] LABS: INR 4.2
[2017-12-03 06:48] LABS: PT Patient Result 41.6 SECS
[2017-12-03 06:50] LABS: Band Neutrophils 2 % (0-10); Eosinophils 1 % (0-10); Hypochromasia 1+; Lymphocytes 12 % (20-55); Microcytosis 1+; Myelocytes 2 %; Nucleated Red Blood Cells 1 (0-5); Segmented Neutrophils 75 % (50-85); Total Cells Counted 100
[2017-12-03 06:51] LABS: Ovalocytes Slight; Platelet Estimate Increased
[2017-12-03 07:05] LABS: Calcium 7.6 MG/DL (8.5-10.1); Osmolality,Calculated 272.7 MOS/KG (273-304); Potassium 4.4 MMOL/L (3.5-5.1)
[2017-12-03] MEDS: PANTOPRAZOLE 40 MG VIAL IV SCH ×2 (08:26→22:10)
[2017-12-03] MEDS: FUROSEMIDE 40 MG/4 ML VIAL IV SCH ×2 (08:26→16:06)
[2017-12-03] MEDS: POTASSIUM CHLORIDE 20 MEQ TABLET PO SCH (08:27)
[2017-12-03] MEDS: CARVEDILOL 6.25 MG TABLET PO SCH ×2 (08:27→22:11)
[2017-12-03] MEDS: AMIODARONE 200 MG TABLET PO SCH (08:28)
[2017-12-03] MEDS: ASCORBIC ACID 500 MG TABLET PO SCH ×2 (08:28→22:10)
[2017-12-03] MEDS: FERROUS SULFATE 325 MG TABLET PO SCH ×3 (08:30→22:11)
[2017-12-03] MEDS: ASPIRIN EC 81 MG TABLET PO SCH (08:30)
[2017-12-03] MEDS: DOCUSATE SODIUM 100 MG CAPSULE PO SCH ×2 (08:53→22:11)
[2017-12-03] MEDS: BISACODYL 10 MG SUPP RECTAL SCH (08:53)
[2017-12-03] MEDS: Tiotropium Br/Olodaterol Hcl [Stiolto Respimat Inhal Spray] 4 GM IH SCH (09:32)
[2017-12-03] MEDS: CLORAZEPATE 3.75 MG TABLET PO PRN ×2 (15:51→23:50)
[2017-12-03] MEDS: FUROSEMIDE 40 MG TABLET PO SCH (17:03)
[2017-12-03] MEDS: ROSUVASTATIN 20 MG TABLET PO SCH (22:10)
[2017-12-03] MEDS: SERTRALINE 25 MG TABLET PO SCH (22:11)
[2017-12-03] MEDS: CIPROFLOXACIN 500 MG TABLET PO SCH (22:11)
[2017-12-04] MEDS: ALBUTEROL/IPRATROPIUM 3 ML NEB RESP TX SCH ×4 (02:16→19:18)
[2017-12-04] MEDS: CLINDAMYCIN INJ 600 MG in PREMIX 1 EACH IV SCH ×3 (02:47→18:18)
[2017-12-04 05:24] LABS: Basophils # 0.1 10*3/uL (0.0-0.2); Basophils % 0.7 % (0.0-0.8); Eosinophils # 0.5 10*3/uL (0.0-0.87); Hematocrit 28.6 VOL% (42.0-52.0); Hemoglobin 9.1 GM/DL (14.0-18.0); Immature Granulocytes % 5.1 %; Immature Granulocytes Absolute 0.64 #; Lymphocytes # 1.3 10*3/uL (1.4-4.0); Lymphocytes % 10.7 % (21.2-54.2); Mean Corpuscular HGB Conc 31.8 GM/DL (32-36); Mean Corpuscular Hemoglobin 29 PG (27-34); Mean Corpuscular Volume 89.7 FL (87-102); Mean Platelet Volume 9.7 FL (9.6-12.0); Monocytes # 1.1 10*3/uL (0.11-0.8); Monocytes % 9.2 % (1.7-12.7); Neutrophils # 8.8 10*3/uL (1.4-7.4); Neutrophils % 70.3 % (38.7-73.9); Platelet Count 903 T/CUMM (130-400); Red Blood Count 3.19 MC/CUMM (3.8-5.5); Red Cell Distribution Width 14.6 % (9.3-17.3); White Blood Count 12.5 T/CUMM (4-12)
[2017-12-04 05:36] LABS: INR 2.3
[2017-12-04 05:38] LABS: PT Patient Result 23.8 SECS
[2017-12-04] MEDS: CLOTRIMAZOLE 10 MG TROCHE PO SCH ×5 (05:41→22:30)
[2017-12-04 05:47] LABS: Band Neutrophils 1 % (0-10); Eosinophils 5 % (0-10); Giant Platelets Few; Hypochromasia 1+; Lymphocytes 7 % (20-55); Ovalocytes Slight; Platelet Estimate Increased; Segmented Neutrophils 75 % (50-85); Total Cells Counted 100
[2017-12-04 05:48] LABS: Microcytosis Slight
[2017-12-04 06:09] LABS: Calcium 7.7 MG/DL (8.5-10.1); Osmolality,Calculated 276.4 MOS/KG (273-304); Potassium 4.6 MMOL/L (3.5-5.1)
[2017-12-04] MEDS: FUROSEMIDE 40 MG TABLET PO SCH ×2 (08:23→16:26)
[2017-12-04] MEDS: AMIODARONE 200 MG TABLET PO SCH (08:24)
[2017-12-04] MEDS: FERROUS SULFATE 325 MG TABLET PO SCH ×3 (08:24→22:32)
[2017-12-04] MEDS: CIPROFLOXACIN 500 MG TABLET PO SCH ×2 (08:25→22:32)
[2017-12-04] MEDS: CARVEDILOL 6.25 MG TABLET PO SCH ×2 (08:26→22:33)
[2017-12-04] MEDS: SPIRONOLACTONE 25 MG TABLET PO SCH (08:26)
[2017-12-04] MEDS: PANTOPRAZOLE 40 MG VIAL IV SCH ×2 (08:26→22:33)
[2017-12-04] MEDS: ASCORBIC ACID 500 MG TABLET PO SCH ×2 (08:26→22:32)
[2017-12-04] MEDS: ASPIRIN EC 81 MG TABLET PO SCH (08:26)
[2017-12-04] MEDS: CLORAZEPATE 3.75 MG TABLET PO PRN ×2 (08:26→22:32)
[2017-12-04] MEDS: BISACODYL 10 MG SUPP RECTAL SCH (08:57)
[2017-12-04] MEDS: Tiotropium Br/Olodaterol Hcl [Stiolto Respimat Inhal Spray] 4 GM IH SCH (08:57)
[2017-12-04] MEDS: DOCUSATE SODIUM 100 MG CAPSULE PO SCH ×2 (08:57→22:33)
[2017-12-04] MEDS: HYDROmorphone 2 MG/1 ML VIAL IV PRN (12:31)
[2017-12-04] MEDS ORDERED: WARFARIN 5 MG TABLET PO SCH (18:00)
[2017-12-04] MEDS: ROSUVASTATIN 20 MG TABLET PO SCH (22:32)
[2017-12-04] MEDS: SERTRALINE 25 MG TABLET PO SCH (22:32)
[2017-12-05] MEDS: ALBUTEROL/IPRATROPIUM 3 ML NEB RESP TX SCH ×4 (01:08→19:13)
[2017-12-05] MEDS: CLINDAMYCIN INJ 600 MG in PREMIX 1 EACH IV SCH ×2 (02:46→10:34)
[2017-12-05] MEDS: CLOTRIMAZOLE 10 MG TROCHE PO SCH ×5 (05:35→21:38)
[2017-12-05 06:44] LABS: Basophils # 0.1 10*3/uL (0.0-0.2); Eosinophils # 0.1 10*3/uL (0.0-0.87); Eosinophils % 0.9 % (0.00-10.9); Hematocrit 30.3 VOL% (42.0-52.0); Hemoglobin 9.6 GM/DL (14.0-18.0); Immature Granulocytes % 4.3 %; Immature Granulocytes Absolute 0.55 #; Lymphocytes # 1.3 10*3/uL (1.4-4.0); Lymphocytes % 10.2 % (21.2-54.2); Mean Corpuscular HGB Conc 31.7 GM/DL (32-36); Mean Corpuscular Hemoglobin 29 PG (27-34); Mean Corpuscular Volume 91.5 FL (87-102); Mean Platelet Volume 9.1 FL (9.6-12.0); Monocytes # 1.4 10*3/uL (0.11-0.8); Monocytes % 10.7 % (1.7-12.7); Neutrophils # 9.3 10*3/uL (1.4-7.4); Neutrophils % 72.9 % (38.7-73.9); Platelet Count 787 T/CUMM (130-400); Red Blood Count 3.31 MC/CUMM (3.8-5.5); Red Cell Distribution Width 14.6 % (9.3-17.3); White Blood Count 12.8 T/CUMM (4-12)
[2017-12-05 06:52] LABS: INR 1.5; PT Patient Result 15.5 SECS
[2017-12-05 07:06] LABS: Band Neutrophils 3 % (0-10); Eosinophils 4 % (0-10); Giant Platelets Few; Hypochromasia 1+; Lymphocytes 12 % (20-55); Microcytosis Slight; Ovalocytes Slight; Platelet Estimate Increased; Segmented Neutrophils 75 % (50-85); Total Cells Counted 100
[2017-12-05 07:12] LABS: Calcium 7.8 MG/DL (8.5-10.1); Osmolality,Calculated 273.5 MOS/KG (273-304); Potassium 4.4 MMOL/L (3.5-5.1)
[2017-12-05] MEDS: SPIRONOLACTONE 25 MG TABLET PO SCH (10:22)
[2017-12-05] MEDS: CIPROFLOXACIN 500 MG TABLET PO SCH (10:23)
[2017-12-05] MEDS: DOCUSATE SODIUM 100 MG CAPSULE PO SCH ×2 (10:23→21:38)
[2017-12-05] MEDS: CARVEDILOL 6.25 MG TABLET PO SCH ×2 (10:23→21:38)
[2017-12-05] MEDS: ASPIRIN EC 81 MG TABLET PO SCH (10:23)
[2017-12-05] MEDS: ASCORBIC ACID 500 MG TABLET PO SCH ×2 (10:23→21:37)
[2017-12-05] MEDS: FUROSEMIDE 40 MG TABLET PO SCH ×2 (10:23→16:27)
[2017-12-05] MEDS: FERROUS SULFATE 325 MG TABLET PO SCH ×3 (10:23→21:38)
[2017-12-05] MEDS: AMIODARONE 200 MG TABLET PO SCH (10:23)
[2017-12-05] MEDS: PANTOPRAZOLE 40 MG VIAL IV SCH ×2 (10:24→21:37)
[2017-12-05] MEDS: BISACODYL 10 MG SUPP RECTAL SCH (10:24)
[2017-12-05] MEDS: Tiotropium Br/Olodaterol Hcl [Stiolto Respimat Inhal Spray] 4 GM IH SCH (12:28)
[2017-12-05] MEDS: ENOXAPARIN 80 MG/0.8 ML SYRINGE SUBCUT SCH (14:20)
[2017-12-05] MEDS: LEVOFLOXACIN INJ 500 MG in PREMIX 1 EACH IV ONE ×2 (16:24→16:47)
[2017-12-05] MEDS: WARFARIN 5 MG TABLET PO SCH (17:35)
[2017-12-05] MEDS: ROSUVASTATIN 20 MG TABLET PO SCH (21:37)
[2017-12-05] MEDS: SERTRALINE 25 MG TABLET PO SCH (21:38)
[2017-12-05] MEDS: CLORAZEPATE 3.75 MG TABLET PO PRN (21:38)
[2017-12-06] MEDS: ALBUTEROL/IPRATROPIUM 3 ML NEB RESP TX SCH ×4 (00:33→21:24)
[2017-12-06] MEDS: ENOXAPARIN 80 MG/0.8 ML SYRINGE SUBCUT SCH ×2 (02:12→14:40)
[2017-12-06 05:16] LABS: Basophils # 0.1 10*3/uL (0.0-0.2); Eosinophils # 0.6 10*3/uL (0.0-0.87); Eosinophils % 4.4 % (0.00-10.9); Hematocrit 30.6 VOL% (42.0-52.0); Hemoglobin 10.1 GM/DL (14.0-18.0); Immature Granulocytes % 3.4 %; Immature Granulocytes Absolute 0.47 #; Lymphocytes # 1.8 10*3/uL (1.4-4.0); Lymphocytes % 13.3 % (21.2-54.2); Mean Corpuscular Hemoglobin 29 PG (27-34); Mean Corpuscular Volume 88.7 FL (87-102); Mean Platelet Volume 9.8 FL (9.6-12.0); Monocytes # 1.2 10*3/uL (0.11-0.8); Monocytes % 8.9 % (1.7-12.7); Neutrophils # 9.4 10*3/uL (1.4-7.4); Platelet Count 812 T/CUMM (130-400); Red Blood Count 3.45 MC/CUMM (3.8-5.5); Red Cell Distribution Width 14.9 % (9.3-17.3); White Blood Count 13.7 T/CUMM (4-12)
[2017-12-06 05:27] LABS: Calcium 7.9 MG/DL (8.5-10.1); Osmolality,Calculated 273.7 MOS/KG (273-304); Potassium 4.7 MMOL/L (3.5-5.1)
[2017-12-06 05:47] LABS: INR 1.4; PT Patient Result 15.1 SECS
[2017-12-06] MEDS: CLOTRIMAZOLE 10 MG TROCHE PO SCH ×5 (06:45→22:05)
[2017-12-06] MEDS: SPIRONOLACTONE 25 MG TABLET PO SCH (09:10)
[2017-12-06] MEDS: LEVOFLOXACIN 500 MG TABLET PO SCH (09:10)
[2017-12-06] MEDS: ASCORBIC ACID 500 MG TABLET PO SCH ×2 (09:10→22:04)
[2017-12-06] MEDS: CARVEDILOL 6.25 MG TABLET PO SCH ×2 (09:11→22:05)
[2017-12-06] MEDS: ASPIRIN EC 81 MG TABLET PO SCH (09:11)
[2017-12-06] MEDS: FERROUS SULFATE 325 MG TABLET PO SCH ×3 (09:11→22:04)
[2017-12-06] MEDS: FUROSEMIDE 40 MG TABLET PO SCH ×2 (09:11→15:16)
[2017-12-06] MEDS: AMIODARONE 200 MG TABLET PO SCH (09:11)
[2017-12-06] MEDS: PANTOPRAZOLE 40 MG VIAL IV SCH ×2 (09:11→22:04)
[2017-12-06] MEDS: DOCUSATE SODIUM 100 MG CAPSULE PO SCH ×2 (09:16→20:25)
[2017-12-06] MEDS: BISACODYL 10 MG SUPP RECTAL SCH (09:16)
[2017-12-06] MEDS: Tiotropium Br/Olodaterol Hcl [Stiolto Respimat Inhal Spray] 4 GM IH SCH (09:16)
[2017-12-06] MEDS: HYDROmorphone 2 MG/1 ML VIAL IV PRN (09:58)
[2017-12-06] MEDS: WARFARIN 5 MG TABLET PO SCH (17:37)
[2017-12-06] MEDS: ROSUVASTATIN 20 MG TABLET PO SCH (22:04)
[2017-12-06] MEDS: CLORAZEPATE 3.75 MG TABLET PO PRN (22:05)
[2017-12-06] MEDS: SERTRALINE 25 MG TABLET PO SCH (22:05)
[2017-12-07] MEDS: ALBUTEROL/IPRATROPIUM 3 ML NEB RESP TX SCH ×2 (01:36→08:13)
[2017-12-07] MEDS: ENOXAPARIN 80 MG/0.8 ML SYRINGE SUBCUT SCH (02:28)
[2017-12-07 05:01] LABS: Basophils # 0.1 10*3/uL (0.0-0.2); Eosinophils # 0.6 10*3/uL (0.0-0.87); Eosinophils % 4.9 % (0.00-10.9); Hematocrit 28.8 VOL% (42.0-52.0); Hemoglobin 9.4 GM/DL (14.0-18.0); Immature Granulocytes % 3.4 %; Immature Granulocytes Absolute 0.42 #; Lymphocytes # 1.7 10*3/uL (1.4-4.0); Lymphocytes % 13.2 % (21.2-54.2); Mean Corpuscular HGB Conc 32.6 GM/DL (32-36); Mean Corpuscular Hemoglobin 29 PG (27-34); Mean Corpuscular Volume 88.9 FL (87-102); Monocytes # 1.2 10*3/uL (0.11-0.8); Monocytes % 9.5 % (1.7-12.7); Neutrophils # 8.5 10*3/uL (1.4-7.4); Platelet Count 650 T/CUMM (130-400); Red Blood Count 3.24 MC/CUMM (3.8-5.5); Red Cell Distribution Width 14.8 % (9.3-17.3); White Blood Count 12.5 T/CUMM (4-12)
[2017-12-07 05:20] LABS: INR 1.4; PT Patient Result 14.3 SECS
[2017-12-07 05:24] LABS: Calcium 8.2 MG/DL (8.5-10.1); Osmolality,Calculated 272.7 MOS/KG (273-304); Potassium 4.5 MMOL/L (3.5-5.1)
[2017-12-07 07:52] VITALS: BP 149/87
[2017-12-07] MEDS: CLOTRIMAZOLE 10 MG TROCHE PO SCH ×2 (09:19→11:16)
[2017-12-07] MEDS: FERROUS SULFATE 325 MG TABLET PO SCH (09:20)
[2017-12-07] MEDS: ASCORBIC ACID 500 MG TABLET PO SCH (09:20)
[2017-12-07] MEDS: FUROSEMIDE 40 MG TABLET PO SCH (09:20)
[2017-12-07] MEDS: LEVOFLOXACIN 500 MG TABLET PO SCH (09:20)
[2017-12-07] MEDS: SPIRONOLACTONE 25 MG TABLET PO SCH (09:21)
[2017-12-07] MEDS: AMIODARONE 200 MG TABLET PO SCH (09:21)
[2017-12-07] MEDS: CARVEDILOL 6.25 MG TABLET PO SCH (09:21)
[2017-12-07] MEDS: DOCUSATE SODIUM 100 MG CAPSULE PO SCH (09:21)
[2017-12-07] MEDS: Tiotropium Br/Olodaterol Hcl [Stiolto Respimat Inhal Spray] 4 GM IH SCH (09:21)
[2017-12-07] MEDS: ASPIRIN EC 81 MG TABLET PO SCH (09:21)
== END 2017-12-07 10:50 | disposition home or self-care (01) | DRG 264 ==
LOC: N.ED 00:23 → N.EDINP 02:14 → N.TELES 02:47 → N.ICU 11-21 14:32 → N.TELEN 11-26 15:01
PROVIDERS: ADMIT Internal Medicine Cardiovascular Disease; ATTEND Internal Medicine Cardiovascular Disease

== ENCOUNTER 2017-12-08 03:27 | Inpatient (IN) ==
[2017-12-08 05:36] LABS: Lactic Acid 1.8 MMOL/L (0.4-2.0)
[2017-12-08] MEDS ORDERED: CEFEPIME 2,000 MG in SODIUM CHLORIDE 0.9% 100 ML IV STA (05:37)
[2017-12-08] MEDS ORDERED: SODIUM CHLORIDE 0.9% 1,000 ML IV STA (05:42)
[2017-12-08] MEDS ORDERED: VANCOMYCIN INJ 1,000 MG in SODIUM CHLORIDE 0.9% 250 ML IV STA (05:42)
[2017-12-08] MEDS ORDERED: metroNIDAZOLE INJ 500 MG in PREMIX 1 EACH IV STA (05:42)
[2017-12-08 05:44] LABS: Albumin 2.3 G/DL (3.4-5.0); Bilirubin,Total 0.4 MG/DL (0.2-1.0); Calcium 9.1 MG/DL (8.5-10.1); Osmolality,Calculated 273.7 MOS/KG (273-304); Potassium 4.7 MMOL/L (3.5-5.1); Total Protein 6.4 G/DL (6.4-8.3)
[2017-12-08] MEDS ORDERED: CEFEPIME 2,000 MG VIAL ONE (05:55)
[2017-12-08] MEDS ORDERED: metroNIDAZOLE 500 MG/100 ML PREMIX IV ONE (05:55)
[2017-12-08 06:38] LABS: Basophils # 0.1 10*3/uL (0.0-0.2); Basophils % 0.5 % (0.0-0.8); Eosinophils # 0.3 10*3/uL (0.0-0.87); Eosinophils % 1.6 % (0.00-10.9); Hematocrit 30.5 VOL% (42.0-52.0); Immature Granulocytes % 1.7 %; Lymphocytes # 1.5 10*3/uL (1.4-4.0); Lymphocytes % 8.4 % (21.2-54.2); Mean Corpuscular HGB Conc 32.8 GM/DL (32-36); Mean Corpuscular Hemoglobin 29 PG (27-34); Mean Corpuscular Volume 88.7 FL (87-102); Mean Platelet Volume 10.2 FL (9.6-12.0); Monocytes # 1.2 10*3/uL (0.11-0.8); Monocytes % 6.8 % (1.7-12.7); Neutrophils # 14.4 10*3/uL (1.4-7.4); Platelet Count 499 T/CUMM (130-400); Red Blood Count 3.44 MC/CUMM (3.8-5.5); Red Cell Distribution Width 15.2 % (9.3-17.3); White Blood Count 17.7 T/CUMM (4-12)
[2017-12-08 06:55] LABS: INR 1.5; PT Patient Result 15.3 SECS; Partial Thromboplastin Time 26.8 SECS (0-40)
[2017-12-08 07:03] LABS: Giant Platelets Few; Hypochromasia 1+; Platelet Estimate Adequate
[2017-12-08 07:04] LABS: Microcytosis Slight; Ovalocytes Slight
[2017-12-08 07:08] LABS: Alanine Aminotransferase 63 U/L (16-61); Albumin 2.1 G/DL (3.4-5.0); Alkaline Phosphatase 93 U/L (45-117); Aspartate Amino Transferase 36 U/L (0-37); Bilirubin,Total < 0.39 MG/DL (0.2-1.0); Calcium 8.5 MG/DL (8.5-10.1)
[2017-12-08 07:09] LABS: Blood Urea Nitrogen 9 MG/DL (7-18); Glucose 95 MG/DL (74-106); Lactic Acid 1.1 MMOL/L (0.4-2.0); Osmolality,Calculated 271.8 MOS/KG (273-304); Potassium 4.6 MMOL/L (3.5-5.1); Sodium 137 MMOL/L (136-145)
[2017-12-08] MEDS ORDERED: HYDROmorphone 2 MG/1 ML VIAL ONE ×2 (07:13→07:43)
[2017-12-08] MEDS ORDERED: ONDANSETRON 4 MG/2 ML VIAL ONE ×2 (07:13→07:42)
[2017-12-08] MEDS ORDERED: VANCOMYCIN 1,000 MG VIAL ONE (07:21)
[2017-12-08] MEDS ORDERED: HYDROmorphone 2 MG/1 ML VIAL IV STA ×2 (07:45→09:00)
[2017-12-08] MEDS ORDERED: ONDANSETRON 4 MG/2 ML VIAL IV STA (07:45)
[2017-12-08] MEDS ORDERED: ACETAMINOPHEN 325 MG TABLET PO PRN (10:24)
[2017-12-08] MEDS ORDERED: ONDANSETRON 4 MG/2 ML VIAL IV PRN (10:24)
[2017-12-08] MEDS: SODIUM CHLORIDE 0.9% 1,000 ML IV SCH (11:27)
[2017-12-08] MEDS: PIPERACILLIN/TAZOBACTAM 3,375 MG in SODIUM CHLORIDE 0.9% 100 ML IV SCH ×2 (11:43→18:13)
[2017-12-08] MEDS: PANTOPRAZOLE 40 MG TABLET PO SCH (11:43)
[2017-12-08] MEDS: ENOXAPARIN 80 MG/0.8 ML SYRINGE SUBCUT SCH ×2 (11:44→21:50)
[2017-12-08] MEDS: HYDROmorphone 2 MG/1 ML VIAL IV PRN ×3 (13:05→20:53)
[2017-12-08] MEDS: LISINOPRIL 5 MG TABLET PO SCH (15:28)
[2017-12-08] MEDS: FUROSEMIDE 40 MG TABLET PO SCH (15:28)
[2017-12-08 15:51] LABS: Apearance,Urine CLEAR (Clear); Bilirubin,Urine Negative (Negative); Blood, Urine Negative (Negative); Glucose,Urine (UA) Negative (Negative); Ketones,Urine Negative (Negative); Mucus,Urine Occasional /LPF (Occasional); Nitrite,Urine Negative (Negative); Protein,Urine Negative; RBC,Urine 1 /HPF (0-4); Squamous Epithelial Cell,Urine Occasional /HPF (0-10); Urine Color Yellow (Yellow); Urine Specific Gravity 1.046 (1.001-1.035); Urine Urobilinogen < 2.0 EU/DL (0.2-1.0); WBC,Urine 3 /HPF (0-6)
[2017-12-08] MEDS ORDERED: WARFARIN 5 MG TABLET PO SCH (18:00)
[2017-12-08] MEDS: CARVEDILOL 6.25 MG TABLET PO SCH (20:47)
[2017-12-08] MEDS: ROSUVASTATIN 20 MG TABLET PO SCH (20:47)
[2017-12-08] MEDS: ASCORBIC ACID 500 MG TABLET PO SCH (20:47)
[2017-12-09] MEDS: HYDROmorphone 2 MG/1 ML VIAL IV PRN ×6 (01:47→23:24)
[2017-12-09] MEDS: PIPERACILLIN/TAZOBACTAM 3,375 MG in SODIUM CHLORIDE 0.9% 100 ML IV SCH ×3 (01:51→18:43)
[2017-12-09 06:02] LABS: Basophils # 0.1 10*3/uL (0.0-0.2); Basophils % 0.8 % (0.0-0.8); Eosinophils # 0.5 10*3/uL (0.0-0.87); Eosinophils % 3.1 % (0.00-10.9); Hematocrit 29.2 VOL% (42.0-52.0); Hemoglobin 9.1 GM/DL (14.0-18.0); Immature Granulocytes % 1.4 %; Immature Granulocytes Absolute 0.23 #; Lymphocytes # 1.1 10*3/uL (1.4-4.0); Lymphocytes % 6.7 % (21.2-54.2); Mean Corpuscular HGB Conc 31.2 GM/DL (32-36); Mean Corpuscular Hemoglobin 29 PG (27-34); Mean Corpuscular Volume 92.1 FL (87-102); Mean Platelet Volume 10.1 FL (9.6-12.0); Monocytes # 1.2 10*3/uL (0.11-0.8); Monocytes % 7.3 % (1.7-12.7); Neutrophils # 13.2 10*3/uL (1.4-7.4); Neutrophils % 80.7 % (38.7-73.9); Platelet Count 489 T/CUMM (130-400); Red Blood Count 3.17 MC/CUMM (3.8-5.5); Red Cell Distribution Width 15.1 % (9.3-17.3); White Blood Count 16.3 T/CUMM (4-12)
[2017-12-09 06:09] LABS: INR 1.8; PT Patient Result 19.1 SECS
[2017-12-09 06:31] LABS: Calcium 8.2 MG/DL (8.5-10.1); Osmolality,Calculated 272.7 MOS/KG (273-304); Potassium 4.3 MMOL/L (3.5-5.1)
[2017-12-09 06:34] LABS: Calcium 8.4 MG/DL (8.5-10.1); Osmolality,Calculated 270.8 MOS/KG (273-304); Potassium 4.3 MMOL/L (3.5-5.1)
[2017-12-09] MEDS: SODIUM CHLORIDE 0.9% 1,000 ML IV SCH (06:39)
[2017-12-09] MEDS ORDERED: WARFARIN 7.5 MG TABLET PO SCH (08:36)
[2017-12-09] MEDS ORDERED: AMIODARONE 200 MG TABLET PO SCH (09:00)
[2017-12-09] MEDS: SPIRONOLACTONE 25 MG TABLET PO SCH (10:02)
[2017-12-09] MEDS: ASCORBIC ACID 500 MG TABLET PO SCH ×2 (10:02→20:40)
[2017-12-09] MEDS: ENOXAPARIN 80 MG/0.8 ML SYRINGE SUBCUT SCH (10:02)
[2017-12-09] MEDS: FERROUS SULFATE 325 MG TABLET PO SCH (10:03)
[2017-12-09] MEDS: FUROSEMIDE 40 MG TABLET PO SCH ×2 (10:03→17:03)
[2017-12-09] MEDS: ASPIRIN EC 81 MG TABLET PO SCH (10:03)
[2017-12-09] MEDS: CARVEDILOL 6.25 MG TABLET PO SCH (10:03)
[2017-12-09] MEDS: PANTOPRAZOLE 40 MG TABLET PO SCH (10:03)
[2017-12-09] MEDS: LISINOPRIL 5 MG TABLET PO SCH (10:03)
[2017-12-09] MEDS: NITROGLYCERIN 2% OINT 1 INCH/GM PACK TOP SCH ×3 (11:58→23:57)
[2017-12-09] MEDS: ALUMINUM/MAGNES/SIMETH MAX STR 30 ML UDCUP PO PRN (12:31)
[2017-12-09 13:47] LABS: Troponin I Only 0.055 NG/ML (0.00-0.045)
[2017-12-09 16:27] LABS: Troponin I Only 0.064 NG/ML (0.00-0.045)
[2017-12-09] MEDS: metroNIDAZOLE INJ 500 MG in PREMIX 1 EACH IV SCH ×2 (17:04→23:30)
[2017-12-09] MEDS ORDERED: WARFARIN 5 MG TABLET PO SCH (18:00)
[2017-12-09 19:25] LABS: Troponin I Only 0.061 NG/ML (0.00-0.045)
[2017-12-09] MEDS: ROSUVASTATIN 20 MG TABLET PO SCH (20:40)
[2017-12-09] MEDS: AMIODARONE 200 MG TABLET PO SCH (20:40)
[2017-12-09] MEDS: CARVEDILOL 12.5 MG TABLET PO SCH (20:40)
[2017-12-10] MEDS: PIPERACILLIN/TAZOBACTAM 3,375 MG in SODIUM CHLORIDE 0.9% 100 ML IV SCH ×3 (01:31→19:06)
[2017-12-10] MEDS: SODIUM CHLORIDE 0.9% 1,000 ML IV SCH ×4 (03:57→23:34)
[2017-12-10] MEDS: HYDROmorphone 2 MG/1 ML VIAL IV PRN ×4 (04:04→20:48)
[2017-12-10] MEDS: ALUMINUM/MAGNES/SIMETH MAX STR 30 ML UDCUP PO PRN ×2 (04:07→13:33)
[2017-12-10] MEDS: NITROGLYCERIN 2% OINT 1 INCH/GM PACK TOP SCH ×4 (06:22→23:41)
[2017-12-10 06:26] LABS: Basophils # 0.1 10*3/uL (0.0-0.2); Basophils % 0.5 % (0.0-0.8); Eosinophils # 0.1 10*3/uL (0.0-0.87); Eosinophils % 0.9 % (0.00-10.9); Hematocrit 28.8 VOL% (42.0-52.0); Hemoglobin 9.3 GM/DL (14.0-18.0); Immature Granulocytes % 0.9 %; Immature Granulocytes Absolute 0.14 #; Lymphocytes # 1.1 10*3/uL (1.4-4.0); Lymphocytes % 6.9 % (21.2-54.2); Mean Corpuscular HGB Conc 32.3 GM/DL (32-36); Mean Corpuscular Hemoglobin 28 PG (27-34); Mean Corpuscular Volume 87.8 FL (87-102); Mean Platelet Volume 10.3 FL (9.6-12.0); Monocytes % 6.3 % (1.7-12.7); Neutrophils # 12.9 10*3/uL (1.4-7.4); Neutrophils % 84.5 % (38.7-73.9); Platelet Count 431 T/CUMM (130-400); Red Blood Count 3.28 MC/CUMM (3.8-5.5); Red Cell Distribution Width 15.2 % (9.3-17.3); White Blood Count 15.2 T/CUMM (4-12)
[2017-12-10 06:37] LABS: INR 2.2
[2017-12-10 06:39] LABS: PT Patient Result 22.3 SECS
[2017-12-10 06:55] LABS: Calcium 8.3 MG/DL (8.5-10.1); Osmolality,Calculated 267.1 MOS/KG (273-304); Potassium 4.2 MMOL/L (3.5-5.1)
[2017-12-10] MEDS: AMIODARONE 200 MG TABLET PO SCH ×2 (09:54→20:48)
[2017-12-10] MEDS: FUROSEMIDE 40 MG TABLET PO SCH ×2 (09:54→17:52)
[2017-12-10] MEDS: ASPIRIN EC 81 MG TABLET PO SCH (09:54)
[2017-12-10] MEDS: ASCORBIC ACID 500 MG TABLET PO SCH ×2 (09:54→20:49)
[2017-12-10] MEDS: FERROUS SULFATE 325 MG TABLET PO SCH (09:54)
[2017-12-10] MEDS: SPIRONOLACTONE 25 MG TABLET PO SCH (09:55)
[2017-12-10] MEDS: CARVEDILOL 12.5 MG TABLET PO SCH ×2 (09:55→20:49)
[2017-12-10] MEDS: LISINOPRIL 5 MG TABLET PO SCH (09:55)
[2017-12-10] MEDS: PANTOPRAZOLE 40 MG TABLET PO SCH ×2 (09:55→20:49)
[2017-12-10] MEDS: metroNIDAZOLE INJ 500 MG in PREMIX 1 EACH IV SCH ×3 (09:57→23:34)
[2017-12-10] MEDS ORDERED: ENOXAPARIN 80 MG/0.8 ML SYRINGE SUBCUT SCH (11:00)
[2017-12-10] MEDS ORDERED: KETOROLAC 15 MG/1 ML VIAL IV SCH (11:00)
[2017-12-10] MEDS: WARFARIN 5 MG TABLET PO SCH (17:52)
[2017-12-10] MEDS: ROSUVASTATIN 20 MG TABLET PO SCH (20:48)
[2017-12-11] MEDS: PIPERACILLIN/TAZOBACTAM 3,375 MG in SODIUM CHLORIDE 0.9% 100 ML IV SCH ×3 (01:49→18:56)
[2017-12-11] MEDS: HYDROmorphone 2 MG/1 ML VIAL IV PRN ×5 (01:49→21:13)
[2017-12-11] MEDS: ALUMINUM/MAGNES/SIMETH MAX STR 30 ML UDCUP PO PRN (01:54)
[2017-12-11] MEDS: SODIUM CHLORIDE 0.9% 1,000 ML IV SCH (01:55)
[2017-12-11] MEDS: NITROGLYCERIN 2% OINT 1 INCH/GM PACK TOP SCH ×4 (05:38→23:01)
[2017-12-11 05:43] LABS: Basophils # 0.1 10*3/uL (0.0-0.2); Basophils % 0.4 % (0.0-0.8); Eosinophils # 0.3 10*3/uL (0.0-0.87); Eosinophils % 2.1 % (0.00-10.9); Hematocrit 27.5 VOL% (42.0-52.0); Immature Granulocytes % 1.2 %; Immature Granulocytes Absolute 0.16 #; Lymphocytes # 1.6 10*3/uL (1.4-4.0); Lymphocytes % 12.5 % (21.2-54.2); Mean Corpuscular HGB Conc 32.7 GM/DL (32-36); Mean Corpuscular Hemoglobin 29 PG (27-34); Mean Platelet Volume 10.5 FL (9.6-12.0); Monocytes # 1.1 10*3/uL (0.11-0.8); Monocytes % 8.5 % (1.7-12.7); Neutrophils # 9.8 10*3/uL (1.4-7.4); Neutrophils % 75.3 % (38.7-73.9); Platelet Count 436 T/CUMM (130-400); Red Blood Count 3.16 MC/CUMM (3.8-5.5); Red Cell Distribution Width 15.1 % (9.3-17.3)
[2017-12-11 05:55] LABS: INR 2.4
[2017-12-11 05:56] LABS: PT Patient Result 24.8 SECS
[2017-12-11 06:27] LABS: Osmolality,Calculated 269.8 MOS/KG (273-304); Potassium 3.7 MMOL/L (3.5-5.1)
[2017-12-11] MEDS: CARVEDILOL 12.5 MG TABLET PO SCH ×2 (10:00→21:08)
[2017-12-11] MEDS: FERROUS SULFATE 325 MG TABLET PO SCH (10:00)
[2017-12-11] MEDS: AMIODARONE 200 MG TABLET PO SCH ×2 (10:00→21:08)
[2017-12-11] MEDS: ASPIRIN EC 81 MG TABLET PO SCH (10:00)
[2017-12-11] MEDS: metroNIDAZOLE INJ 500 MG in PREMIX 1 EACH IV SCH ×2 (10:00→17:35)
[2017-12-11] MEDS: SPIRONOLACTONE 25 MG TABLET PO SCH (10:00)
[2017-12-11] MEDS: ASCORBIC ACID 500 MG TABLET PO SCH ×2 (10:00→21:08)
[2017-12-11] MEDS: PANTOPRAZOLE 40 MG TABLET PO SCH ×2 (10:01→21:09)
[2017-12-11] MEDS: FUROSEMIDE 40 MG TABLET PO SCH ×2 (10:01→17:34)
[2017-12-11] MEDS: LISINOPRIL 5 MG TABLET PO SCH (10:01)
[2017-12-11] MEDS: WARFARIN 5 MG TABLET PO SCH (17:34)
[2017-12-11] MEDS: POLYETHYLENE GLYCOL POWDER 17 GM PACK PO SCH (18:46)
[2017-12-11] MEDS: ROSUVASTATIN 20 MG TABLET PO SCH (21:08)
[2017-12-12] MEDS: HYDROmorphone 2 MG/1 ML VIAL IV PRN ×7 (00:12→23:31)
[2017-12-12] MEDS: ALUMINUM/MAGNES/SIMETH MAX STR 30 ML UDCUP PO PRN (00:17)
[2017-12-12] MEDS: metroNIDAZOLE INJ 500 MG in PREMIX 1 EACH IV SCH (00:53)
[2017-12-12] MEDS: PIPERACILLIN/TAZOBACTAM 3,375 MG in SODIUM CHLORIDE 0.9% 100 ML IV SCH (01:49)
[2017-12-12 05:11] LABS: Basophils # 0.1 10*3/uL (0.0-0.2); Basophils % 0.7 % (0.0-0.8); Eosinophils # 0.4 10*3/uL (0.0-0.87); Hematocrit 28.9 VOL% (42.0-52.0); Hemoglobin 9.2 GM/DL (14.0-18.0); Immature Granulocytes % 1.2 %; Immature Granulocytes Absolute 0.15 #; Lymphocytes % 16.1 % (21.2-54.2); Mean Corpuscular HGB Conc 31.8 GM/DL (32-36); Mean Corpuscular Hemoglobin 28 PG (27-34); Mean Corpuscular Volume 89.2 FL (87-102); Monocytes # 1.1 10*3/uL (0.11-0.8); Monocytes % 8.9 % (1.7-12.7); Neutrophils # 8.9 10*3/uL (1.4-7.4); Neutrophils % 70.1 % (38.7-73.9); Platelet Count 431 T/CUMM (130-400); Red Blood Count 3.24 MC/CUMM (3.8-5.5); White Blood Count 12.7 T/CUMM (4-12)
[2017-12-12] MEDS: NITROGLYCERIN 2% OINT 1 INCH/GM PACK TOP SCH (05:13)
[2017-12-12 05:23] LABS: INR 2.6
[2017-12-12 05:25] LABS: PT Patient Result 26.3 SECS
[2017-12-12 05:39] LABS: Calcium 7.8 MG/DL (8.5-10.1); Osmolality,Calculated 273.7 MOS/KG (273-304); Potassium 3.4 MMOL/L (3.5-5.1)
[2017-12-12] MEDS: ASCORBIC ACID 500 MG TABLET PO SCH ×2 (09:34→20:34)
[2017-12-12] MEDS: PANTOPRAZOLE 40 MG TABLET PO SCH ×2 (09:34→20:34)
[2017-12-12] MEDS: SPIRONOLACTONE 25 MG TABLET PO SCH (09:34)
[2017-12-12] MEDS: AMOXICILLIN/CLAV 875 MG TABLET PO SCH ×2 (09:34→20:34)
[2017-12-12] MEDS: FUROSEMIDE 40 MG TABLET PO SCH ×2 (09:34→16:11)
[2017-12-12] MEDS ORDERED: NITROGLYCERIN SL 0.4 MG TABLET SL PRN (09:34)
[2017-12-12] MEDS: CARVEDILOL 12.5 MG TABLET PO SCH ×2 (09:34→20:35)
[2017-12-12] MEDS: LISINOPRIL 10 MG TABLET PO SCH (09:34)
[2017-12-12] MEDS: FERROUS SULFATE 325 MG TABLET PO SCH (09:34)
[2017-12-12] MEDS: AMIODARONE 200 MG TABLET PO SCH ×2 (09:35→09:38)
[2017-12-12] MEDS: ASPIRIN EC 81 MG TABLET PO SCH (09:35)
[2017-12-12] MEDS: POLYETHYLENE GLYCOL POWDER 17 GM PACK PO SCH (09:35)
[2017-12-12] MEDS: WARFARIN 5 MG TABLET PO SCH (17:37)
[2017-12-12] MEDS: ROSUVASTATIN 20 MG TABLET PO SCH (20:34)
[2017-12-12] MEDS ORDERED: POTASSIUM CHLORIDE 20 MEQ PACK PO ONE (21:22)
[2017-12-13] MEDS: HYDROmorphone 2 MG/1 ML VIAL IV PRN ×2 (02:43→06:16)
[2017-12-13 07:15] LABS: Basophils # 0.1 10*3/uL (0.0-0.2); Basophils % 0.6 % (0.0-0.8); Eosinophils # 0.5 10*3/uL (0.0-0.87); Eosinophils % 4.6 % (0.00-10.9); Hematocrit 28.3 VOL% (42.0-52.0); Hemoglobin 9.2 GM/DL (14.0-18.0); Immature Granulocytes % 1.5 %; Immature Granulocytes Absolute 0.17 #; Lymphocytes # 2.3 10*3/uL (1.4-4.0); Lymphocytes % 19.8 % (21.2-54.2); Mean Corpuscular HGB Conc 32.5 GM/DL (32-36); Mean Corpuscular Hemoglobin 29 PG (27-34); Mean Corpuscular Volume 88.4 FL (87-102); Mean Platelet Volume 10.2 FL (9.6-12.0); Monocytes # 1.1 10*3/uL (0.11-0.8); Neutrophils # 7.5 10*3/uL (1.4-7.4); Neutrophils % 64.5 % (38.7-73.9); Platelet Count 422 T/CUMM (130-400); Red Cell Distribution Width 15.5 % (9.3-17.3); White Blood Count 11.7 T/CUMM (4-12)
[2017-12-13 07:41] LABS: Calcium 8.2 MG/DL (8.5-10.1); Osmolality,Calculated 273.5 MOS/KG (273-304); Potassium 4.4 MMOL/L (3.5-5.1)
[2017-12-13 08:06] LABS: Band Neutrophils 6 % (0-10); Elliptocytes 1+; Eosinophils 7 % (0-10); Hypochromasia 1+; Lymphocytes 15 % (20-55); Macrocytosis Slight; Platelet Estimate Increased; Segmented Neutrophils 65 % (50-85); Target Cells Slight; Total Cells Counted 100
[2017-12-13 08:21] LABS: INR 2.5
[2017-12-13 08:28] LABS: PT Patient Result 25.5 SECS
[2017-12-13] MEDS: POLYETHYLENE GLYCOL POWDER 17 GM PACK PO SCH (10:17)
[2017-12-13] MEDS: FUROSEMIDE 40 MG TABLET PO SCH (10:17)
[2017-12-13] MEDS: CARVEDILOL 12.5 MG TABLET PO SCH (10:17)
[2017-12-13] MEDS: ASPIRIN EC 81 MG TABLET PO SCH (10:18)
[2017-12-13] MEDS: PANTOPRAZOLE 40 MG TABLET PO SCH (10:18)
[2017-12-13] MEDS: LISINOPRIL 10 MG TABLET PO SCH (10:19)
[2017-12-13] MEDS: FERROUS SULFATE 325 MG TABLET PO SCH (10:19)
[2017-12-13] MEDS: SPIRONOLACTONE 25 MG TABLET PO SCH (10:20)
[2017-12-13] MEDS: AMIODARONE 200 MG TABLET PO SCH (10:20)
[2017-12-13] MEDS: AMOXICILLIN/CLAV 875 MG TABLET PO SCH (10:21)
[2017-12-13] MEDS: ASCORBIC ACID 500 MG TABLET PO SCH (10:21)
[2017-12-13 12:37] VITALS: BP 94/54
== END 2017-12-13 14:00 | disposition home or self-care (01) | DRG 394 ==
LOC: N.ED 03:27 → N.EDINP 08:52 → N.3E 10:19
PROVIDERS: ADMIT Surgery; ATTEND Surgery

== ENCOUNTER 2018-01-04 21:27 | Inpatient (IN) ==
[2018-01-04 21:59] LABS: Basophils # 0.1 10*3/uL (0.0-0.2); Basophils % 0.8 % (0.0-0.8); Eosinophils # 0.5 10*3/uL (0.0-0.87); Eosinophils % 3.8 % (0.00-10.9); Hematocrit 26.3 VOL% (42.0-52.0); Immature Granulocytes % 1.3 %; Immature Granulocytes Absolute 0.15 #; Lymphocytes # 3.8 10*3/uL (1.4-4.0); Lymphocytes % 31.5 % (21.2-54.2); Mean Corpuscular HGB Conc 30.4 GM/DL (32-36); Mean Corpuscular Hemoglobin 28 PG (27-34); Mean Corpuscular Volume 92.6 FL (87-102); Mean Platelet Volume 9.7 FL (9.6-12.0); Monocytes # 1.2 10*3/uL (0.11-0.8); Monocytes % 9.8 % (1.7-12.7); Neutrophils # 6.3 10*3/uL (1.4-7.4); Neutrophils % 52.8 % (38.7-73.9); Platelet Count 512 T/CUMM (130-400); Red Blood Count 2.84 MC/CUMM (3.8-5.5); White Blood Count 11.9 T/CUMM (4-12)
[2018-01-04 22:15] LABS: Alanine Aminotransferase 98 U/L (16-61); Albumin 2.7 G/DL (3.4-5.0); Alkaline Phosphatase 90 U/L (45-117); Aspartate Amino Transferase 58 U/L (0-37); Bilirubin,Total < 0.39 MG/DL (0.2-1.0); Blood Urea Nitrogen 12 MG/DL (7-18); Calcium 8.1 MG/DL (8.5-10.1); Glucose 89 MG/DL (74-106); Osmolality,Calculated 277.4 MOS/KG (273-304); Sodium 140 MMOL/L (136-145); Total Protein 6.6 G/DL (6.4-8.3)
[2018-01-04] MEDS ORDERED: MORPHINE 2 MG/1 ML SYRINGE IV STA (22:18)
[2018-01-04] MEDS ORDERED: ONDANSETRON 4 MG/2 ML VIAL IV STA (22:19)
[2018-01-04] MEDS ORDERED: ONDANSETRON 4 MG/2 ML VIAL ONE (22:21)
[2018-01-04] MEDS ORDERED: MORPHINE 4 MG/1 ML VIAL ONE (22:22)
[2018-01-05] MEDS ORDERED: MORPHINE 4 MG/1 ML VIAL ONE (00:25)
[2018-01-05] MEDS ORDERED: ONDANSETRON 4 MG/2 ML VIAL ONE (00:25)
[2018-01-05] MEDS: MORPHINE 4 MG/1 ML VIAL IV PRN ×6 (00:41→23:26)
[2018-01-05 00:42] LABS: INR 1.2; PT Patient Result 12.7 SECS; Partial Thromboplastin Time 35.2 SECS (0-40)
[2018-01-05] MEDS: ONDANSETRON 4 MG/2 ML VIAL IV PRN (00:42)
[2018-01-05] MEDS ORDERED: ALUMINUM/MAGNES/SIMETH MAX STR 30 ML UDCUP PO PRN (01:59)
[2018-01-05] MEDS ORDERED: NITROGLYCERIN SL 0.4 MG TABLET SL PRN (01:59)
[2018-01-05 03:17] LABS: Basophils # 0.1 10*3/uL (0.0-0.2); Basophils % 0.6 % (0.0-0.8); Eosinophils # 0.5 10*3/uL (0.0-0.87); Eosinophils % 4.6 % (0.00-10.9); Hematocrit 24.8 VOL% (42.0-52.0); Hemoglobin 7.4 GM/DL (14.0-18.0); Immature Granulocytes % 1.4 %; Immature Granulocytes Absolute 0.16 #; Lymphocytes # 3.2 10*3/uL (1.4-4.0); Lymphocytes % 28.5 % (21.2-54.2); Mean Corpuscular HGB Conc 29.8 GM/DL (32-36); Mean Corpuscular Hemoglobin 27 PG (27-34); Mean Corpuscular Volume 91.5 FL (87-102); Mean Platelet Volume 9.8 FL (9.6-12.0); Monocytes # 1.1 10*3/uL (0.11-0.8); Monocytes % 9.9 % (1.7-12.7); Neutrophils # 6.1 10*3/uL (1.4-7.4); Platelet Count 499 T/CUMM (130-400); Red Blood Count 2.71 MC/CUMM (3.8-5.5); Red Cell Distribution Width 16.3 % (9.3-17.3); White Blood Count 11.2 T/CUMM (4-12)
[2018-01-05 03:23] LABS: INR 1.2; PT Patient Result 12.7 SECS
[2018-01-05 04:06] LABS: Calcium 8.4 MG/DL (8.5-10.1); Osmolality,Calculated 277.5 MOS/KG (273-304); Potassium 4.2 MMOL/L (3.5-5.1); Risk Ratio 2.2; Thyroid Stimulating Hormone 6.72 uIU/ml (0.358-3.74); VLDL CHOLESTEROL 15.4 MG/DL
[2018-01-05] MEDS ORDERED: Tiotropium Br/Olodaterol Hcl [Stiolto Respimat Inhal Spray] 4 GM IH SCH (09:00)
[2018-01-05] MEDS ORDERED: SODIUM CHLORIDE 0.9% 1,000 ML IV PRN (09:11)
[2018-01-05] MEDS: AMIODARONE 200 MG TABLET PO SCH (09:14)
[2018-01-05] MEDS: PANTOPRAZOLE 40 MG TABLET PO SCH ×2 (09:14→21:17)
[2018-01-05] MEDS: ASCORBIC ACID 500 MG TABLET PO SCH ×2 (09:14→21:17)
[2018-01-05] MEDS: LISINOPRIL 10 MG TABLET PO SCH (09:14)
[2018-01-05] MEDS: CARVEDILOL 12.5 MG TABLET PO SCH ×2 (09:14→21:44)
[2018-01-05] MEDS: FERROUS SULFATE 325 MG TABLET PO SCH (09:14)
[2018-01-05] MEDS: FUROSEMIDE 40 MG TABLET PO SCH (09:14)
[2018-01-05] MEDS: SPIRONOLACTONE 25 MG TABLET PO SCH (09:14)
[2018-01-05] MEDS: ASPIRIN EC 81 MG TABLET PO SCH (09:14)
[2018-01-05] MEDS: DOCUSATE SODIUM 100 MG CAPSULE PO SCH (09:15)
[2018-01-05] MEDS: AMOXICILLIN/CLAV 875 MG TABLET PO SCH ×2 (09:50→21:17)
[2018-01-05] MEDS: FLUCONAZOLE 200 MG TABLET PO SCH (09:50)
[2018-01-05] MEDS: CLOTRIMAZOLE 10 MG TROCHE PO SCH ×4 (09:50→21:17)
[2018-01-05] MEDS: HEPARIN DRIP 25,000 UNITS/500 ML PREMIX IV SCH (09:52)
[2018-01-05] MEDS: NITROGLYCERIN 0.2 MG/HR PATCH TRANSDERM SCH (10:43)
[2018-01-05] MEDS ORDERED: WARFARIN 2.5 MG TABLET PO SCH (18:00)
[2018-01-05] MEDS ORDERED: WARFARIN 5 MG TABLET PO SCH (18:00)
[2018-01-05 18:49] LABS: Hematocrit 28.6 VOL% (42.0-52.0)
[2018-01-05] MEDS: SERTRALINE 50 MG TABLET PO SCH (21:17)
[2018-01-05] MEDS: ROSUVASTATIN 20 MG TABLET PO SCH (21:49)
[2018-01-06] MEDS ORDERED: HEPARIN 5,000 UNIT/1 ML VIAL IV PRN (02:10)
[2018-01-06 04:57] LABS: Basophils # 0.1 10*3/uL (0.0-0.2); Eosinophils # 0.7 10*3/uL (0.0-0.87); Eosinophils % 5.7 % (0.00-10.9); Hematocrit 31.5 VOL% (42.0-52.0); Hemoglobin 9.8 GM/DL (14.0-18.0); Immature Granulocytes % 1.1 %; Immature Granulocytes Absolute 0.12 #; Lymphocytes # 2.9 10*3/uL (1.4-4.0); Lymphocytes % 25.2 % (21.2-54.2); Mean Corpuscular HGB Conc 31.1 GM/DL (32-36); Mean Corpuscular Hemoglobin 28 PG (27-34); Mean Corpuscular Volume 90.3 FL (87-102); Monocytes # 1.1 10*3/uL (0.11-0.8); Monocytes % 9.2 % (1.7-12.7); Neutrophils # 6.6 10*3/uL (1.4-7.4); Neutrophils % 57.8 % (38.7-73.9); Platelet Count 455 T/CUMM (130-400); Red Blood Count 3.49 MC/CUMM (3.8-5.5); Red Cell Distribution Width 16.2 % (9.3-17.3); White Blood Count 11.4 T/CUMM (4-12)
[2018-01-06 05:24] LABS: INR 1.2; PT Patient Result 12.7 SECS
[2018-01-06 05:28] LABS: Calcium 8.6 MG/DL (8.5-10.1); Osmolality,Calculated 271.8 MOS/KG (273-304); Potassium 4.3 MMOL/L (3.5-5.1)
[2018-01-06] MEDS: CLOTRIMAZOLE 10 MG TROCHE PO SCH ×5 (06:06→21:31)
[2018-01-06] MEDS: FLUCONAZOLE 200 MG TABLET PO SCH (09:07)
[2018-01-06] MEDS: ASCORBIC ACID 500 MG TABLET PO SCH ×2 (09:08→21:31)
[2018-01-06] MEDS: AMOXICILLIN/CLAV 875 MG TABLET PO SCH ×2 (09:08→21:31)
[2018-01-06] MEDS: FERROUS SULFATE 325 MG TABLET PO SCH (09:08)
[2018-01-06] MEDS: DOCUSATE SODIUM 100 MG CAPSULE PO SCH (09:09)
[2018-01-06] MEDS: FUROSEMIDE 40 MG TABLET PO SCH (09:09)
[2018-01-06] MEDS: ASPIRIN EC 81 MG TABLET PO SCH (09:09)
[2018-01-06] MEDS: PANTOPRAZOLE 40 MG TABLET PO SCH ×2 (09:10→21:31)
[2018-01-06] MEDS: SPIRONOLACTONE 25 MG TABLET PO SCH (09:11)
[2018-01-06] MEDS: CARVEDILOL 12.5 MG TABLET PO SCH ×2 (09:11→22:00)
[2018-01-06] MEDS: AMIODARONE 200 MG TABLET PO SCH (09:12)
[2018-01-06] MEDS: MORPHINE 4 MG/1 ML VIAL IV PRN ×3 (09:19→22:22)
[2018-01-06] MEDS: NITROGLYCERIN 0.2 MG/HR PATCH TRANSDERM SCH (09:19)
[2018-01-06] MEDS: HEPARIN DRIP 25,000 UNITS/500 ML PREMIX IV SCH (09:23)
[2018-01-06] MEDS: LISINOPRIL 10 MG TABLET PO SCH (13:09)
[2018-01-06] MEDS: ONDANSETRON 4 MG/2 ML VIAL IV PRN (14:27)
[2018-01-06] MEDS: CHLORHEXIDINE 4% SOLN 118 ML BOTTLE TOP SCH (18:03)
[2018-01-06] MEDS: ACETIC ACID 0.25% IRRIGATION 1,000 ML BOTTLE IRRIG SCH (18:03)
[2018-01-06] MEDS: ROSUVASTATIN 20 MG TABLET PO SCH (21:31)
[2018-01-06] MEDS: SERTRALINE 50 MG TABLET PO SCH (21:32)
[2018-01-07] MEDS: HEPARIN DRIP 25,000 UNITS/500 ML PREMIX IV SCH ×3 (00:08→19:50)
[2018-01-07 05:27] LABS: Basophils # 0.1 10*3/uL (0.0-0.2); Basophils % 0.6 % (0.0-0.8); Eosinophils # 0.7 10*3/uL (0.0-0.87); Eosinophils % 6.1 % (0.00-10.9); Hematocrit 30.6 VOL% (42.0-52.0); Hemoglobin 9.5 GM/DL (14.0-18.0); Immature Granulocytes % 1.2 %; Immature Granulocytes Absolute 0.13 #; Lymphocytes # 2.9 10*3/uL (1.4-4.0); Lymphocytes % 25.7 % (21.2-54.2); Mean Corpuscular Hemoglobin 28 PG (27-34); Mean Platelet Volume 10.4 FL (9.6-12.0); Monocytes % 9.2 % (1.7-12.7); Neutrophils # 6.4 10*3/uL (1.4-7.4); Neutrophils % 57.2 % (38.7-73.9); Platelet Count 478 T/CUMM (130-400); Red Blood Count 3.44 MC/CUMM (3.8-5.5); Red Cell Distribution Width 15.8 % (9.3-17.3); White Blood Count 11.2 T/CUMM (4-12)
[2018-01-07 05:29] LABS: INR 1.1; PT Patient Result 11.5 SECS
[2018-01-07 06:20] LABS: Calcium 8.5 MG/DL (8.5-10.1); Osmolality,Calculated 274.5 MOS/KG (273-304); Potassium 4.5 MMOL/L (3.5-5.1)
[2018-01-07] MEDS: CLOTRIMAZOLE 10 MG TROCHE PO SCH ×5 (06:33→21:25)
[2018-01-07] MEDS: ASCORBIC ACID 500 MG TABLET PO SCH ×2 (08:45→21:25)
[2018-01-07] MEDS: PANTOPRAZOLE 40 MG TABLET PO SCH ×2 (08:47→21:25)
[2018-01-07] MEDS: FLUCONAZOLE 200 MG TABLET PO SCH (08:47)
[2018-01-07] MEDS: FUROSEMIDE 40 MG TABLET PO SCH (08:47)
[2018-01-07] MEDS: DOCUSATE SODIUM 100 MG CAPSULE PO SCH (08:47)
[2018-01-07] MEDS: FERROUS SULFATE 325 MG TABLET PO SCH (08:49)
[2018-01-07] MEDS: LISINOPRIL 10 MG TABLET PO SCH (08:50)
[2018-01-07] MEDS: AMIODARONE 200 MG TABLET PO SCH (08:51)
[2018-01-07] MEDS: ASPIRIN EC 81 MG TABLET PO SCH (08:51)
[2018-01-07] MEDS: CARVEDILOL 12.5 MG TABLET PO SCH ×2 (08:51→21:25)
[2018-01-07] MEDS: AMOXICILLIN/CLAV 875 MG TABLET PO SCH ×2 (08:51→21:25)
[2018-01-07] MEDS: SPIRONOLACTONE 25 MG TABLET PO SCH (08:51)
[2018-01-07] MEDS: NITROGLYCERIN 0.2 MG/HR PATCH TRANSDERM SCH (08:52)
[2018-01-07] MEDS: ACETIC ACID 0.25% IRRIGATION 1,000 ML BOTTLE IRRIG SCH (09:00)
[2018-01-07] MEDS: CHLORHEXIDINE 4% SOLN 118 ML BOTTLE TOP SCH (09:00)
[2018-01-07] MEDS: MORPHINE 4 MG/1 ML VIAL IV PRN ×3 (09:21→21:32)
[2018-01-07] MEDS ORDERED: BISACODYL 5 MG TABLET PO ONE (10:00)
[2018-01-07] MEDS ORDERED: POLYETHYLENE GLYCOL POWDER 255 GM BOTTLE PO ONE (11:00)
[2018-01-07] MEDS: CIPROFLOXACIN 500 MG TABLET PO SCH ×2 (11:24→21:25)
[2018-01-07] MEDS ORDERED: CYCLOBENZAPRINE 10 MG TABLET PO PRN (13:12)
[2018-01-07] MEDS ORDERED: MAGNESIUM CITRATE 300 ML BOTTLE PO ONE (21:00)
[2018-01-07] MEDS: ROSUVASTATIN 20 MG TABLET PO SCH (21:25)
[2018-01-07] MEDS: SERTRALINE 50 MG TABLET PO SCH (21:25)
[2018-01-08] MEDS: MORPHINE 4 MG/1 ML VIAL IV PRN (03:58)
[2018-01-08 05:04] LABS: Basophils # 0.1 10*3/uL (0.0-0.2); Basophils % 0.6 % (0.0-0.8); Eosinophils # 0.5 10*3/uL (0.0-0.87); Eosinophils % 5.5 % (0.00-10.9); Hematocrit 29.8 VOL% (42.0-52.0); Hemoglobin 9.4 GM/DL (14.0-18.0); Immature Granulocytes % 0.9 %; Immature Granulocytes Absolute 0.09 #; Lymphocytes # 2.9 10*3/uL (1.4-4.0); Lymphocytes % 30.1 % (21.2-54.2); Mean Corpuscular HGB Conc 31.5 GM/DL (32-36); Mean Corpuscular Hemoglobin 28 PG (27-34); Mean Corpuscular Volume 89.2 FL (87-102); Mean Platelet Volume 10.4 FL (9.6-12.0); Monocytes # 0.9 10*3/uL (0.11-0.8); Monocytes % 8.9 % (1.7-12.7); Neutrophils # 5.2 10*3/uL (1.4-7.4); Platelet Count 459 T/CUMM (130-400); Red Blood Count 3.34 MC/CUMM (3.8-5.5); Red Cell Distribution Width 15.8 % (9.3-17.3); White Blood Count 9.7 T/CUMM (4-12)
[2018-01-08 05:11] LABS: INR 1.1; PT Patient Result 11.9 SECS
[2018-01-08] MEDS: CLOTRIMAZOLE 10 MG TROCHE PO SCH ×3 (05:33→14:09)
[2018-01-08 05:34] LABS: Calcium 8.9 MG/DL (8.5-10.1); Osmolality,Calculated 271.7 MOS/KG (273-304); Potassium 3.7 MMOL/L (3.5-5.1)
[2018-01-08] MEDS ORDERED: PHENYLEPHRINE 1 MG/10 ML SYRINGE IV ONE (11:11)
[2018-01-08] MEDS ORDERED: GLYCOPYRROLATE 0.4 MG/2 ML VIAL ONE (11:11)
[2018-01-08] MEDS ORDERED: LIDOCAINE 2% 5 ML VIAL ONE (11:11)
[2018-01-08] MEDS ORDERED: PROPOFOL 200 MG/20 ML VIAL IV ONE (11:11)
[2018-01-08] MEDS ORDERED: ePHEDrine 50 MG/ML AMP ONE (13:02)
[2018-01-08 13:32] VITALS: BP 112/72
[2018-01-08] MEDS ORDERED: metroNIDAZOLE 500 MG TABLET PO SCH (14:00)
[2018-01-08] MEDS: CARVEDILOL 12.5 MG TABLET PO SCH (14:08)
[2018-01-08] MEDS: PANTOPRAZOLE 40 MG TABLET PO SCH (14:08)
[2018-01-08] MEDS: FERROUS SULFATE 325 MG TABLET PO SCH (14:08)
[2018-01-08] MEDS: FLUCONAZOLE 200 MG TABLET PO SCH (14:08)
[2018-01-08] MEDS: ASPIRIN EC 81 MG TABLET PO SCH (14:08)
[2018-01-08] MEDS: FUROSEMIDE 40 MG TABLET PO SCH (14:09)
[2018-01-08] MEDS: AMIODARONE 200 MG TABLET PO SCH (14:09)
[2018-01-08] MEDS: CIPROFLOXACIN 500 MG TABLET PO SCH (14:09)
[2018-01-08] MEDS: AMOXICILLIN/CLAV 875 MG TABLET PO SCH (14:09)
[2018-01-08] MEDS: ASCORBIC ACID 500 MG TABLET PO SCH (14:09)
[2018-01-08] MEDS: SPIRONOLACTONE 25 MG TABLET PO SCH (14:10)
[2018-01-08] MEDS: LISINOPRIL 10 MG TABLET PO SCH (14:10)
[2018-01-08] MEDS: NITROGLYCERIN 0.2 MG/HR PATCH TRANSDERM SCH (14:10)
[2018-01-08] MEDS: ACETIC ACID 0.25% IRRIGATION 1,000 ML BOTTLE IRRIG SCH (14:11)
[2018-01-08] MEDS: CHLORHEXIDINE 4% SOLN 118 ML BOTTLE TOP SCH (14:11)
[2018-01-08] MEDS: DOCUSATE SODIUM 100 MG CAPSULE PO SCH (14:11)
[2018-01-08] MEDS ORDERED: ENOXAPARIN 100 MG/ML SYRINGE SUBCUT ONE (14:59)
[2018-01-08] MEDS ORDERED: WARFARIN 5 MG TABLET PO ONE ×2 (15:00→18:00)
[2018-01-08] MEDS ORDERED: GENTAMICIN 0.1% OINT 15 GM TUBE TOP SCH (21:00)
== END 2018-01-08 16:45 | disposition home health service (06) | DRG 313 ==
LOC: EDUNIT# → N.ED 21:27 → N.EDINP 21:27 → N.TELEN 01-05 00:35 → SUATTDRO 01-05 10:00
PROVIDERS: ADMIT Internal Medicine; ATTEND Internal Medicine

== ENCOUNTER 2018-01-16 09:37 | Inpatient (IN) ==
[2018-01-16] MEDS ORDERED: PANTOPRAZOLE 40 MG VIAL IV STA (10:05)
[2018-01-16] MEDS ORDERED: ONDANSETRON 4 MG/2 ML VIAL IV STA (10:05)
[2018-01-16] MEDS ORDERED: ONDANSETRON 4 MG/2 ML VIAL ONE (10:47)
[2018-01-16] MEDS ORDERED: PANTOPRAZOLE 40 MG VIAL IV ONE (10:47)
[2018-01-16 10:56] LABS: INR 1.5; PT Patient Result 15.2 SECS; Partial Thromboplastin Time 36.4 SECS (0-40)
[2018-01-16 11:20] LABS: Alanine Aminotransferase 22 U/L (16-61); Albumin 3.2 G/DL (3.4-5.0); Alkaline Phosphatase 67 U/L (45-117); Aspartate Amino Transferase 17 U/L (0-37); Bilirubin,Total < 0.39 MG/DL (0.2-1.0); Blood Urea Nitrogen 11 MG/DL (7-18); Calcium 8.6 MG/DL (8.5-10.1); Glucose 88 MG/DL (74-106); Osmolality,Calculated 278.3 MOS/KG (273-304); Potassium 4.8 MMOL/L (3.5-5.1); Sodium 141 MMOL/L (136-145); Total Protein 6.8 G/DL (6.4-8.3); Troponin I Only 0.032 NG/ML (0.00-0.045)
[2018-01-16 11:38] LABS: Basophils # 0.1 10*3/uL (0.0-0.2); Basophils % 0.9 % (0.0-0.8); Eosinophils # 0.4 10*3/uL (0.0-0.87); Eosinophils % 3.6 % (0.00-10.9); Hematocrit 33.1 VOL% (42.0-52.0); Hemoglobin 10.3 GM/DL (14.0-18.0); Immature Granulocytes % 0.9 %; Immature Granulocytes Absolute 0.09 #; Lymphocytes % 29.2 % (21.2-54.2); Mean Corpuscular HGB Conc 31.1 GM/DL (32-36); Mean Corpuscular Hemoglobin 28 PG (27-34); Mean Corpuscular Volume 90.7 FL (87-102); Mean Platelet Volume 11.2 FL (9.6-12.0); Monocytes # 0.8 10*3/uL (0.11-0.8); Monocytes % 7.6 % (1.7-12.7); Neutrophils # 5.9 10*3/uL (1.4-7.4); Neutrophils % 57.8 % (38.7-73.9); Platelet Count 398 T/CUMM (130-400); Red Blood Count 3.65 MC/CUMM (3.8-5.5); Red Cell Distribution Width 15.9 % (9.3-17.3); White Blood Count 10.3 T/CUMM (4-12)
[2018-01-16] MEDS ORDERED: ONDANSETRON 4 MG/2 ML VIAL IV PRN (12:55)
[2018-01-16] MEDS ORDERED: ACETAMINOPHEN 325 MG TABLET PO PRN (12:55)
[2018-01-16] MEDS: SODIUM CHLORIDE 0.9% 1,000 ML IV SCH ×2 (15:24→21:05)
[2018-01-16] MEDS ORDERED: NITROGLYCERIN SL 0.4 MG TABLET SL PRN (16:13)
[2018-01-16] MEDS: GENTAMICIN 0.1% CREAM 15 GM TUBE TOP SCH (16:30)
[2018-01-16] MEDS: CHLORHEXIDINE 4% SOLN 118 ML BOTTLE TOP SCH (16:30)
[2018-01-16] MEDS ORDERED: HEPARIN DRIP 25,000 UNITS/500 ML PREMIX IV SCH (16:30)
[2018-01-16] MEDS: ACETIC ACID 0.25% IRRIGATION 1,000 ML BOTTLE IRRIG SCH (16:30)
[2018-01-16] MEDS ORDERED: ALUMINUM/MAGNES/SIMETH MAX STR 30 ML UDCUP PO PRN (17:29)
[2018-01-16] MEDS: LORazepam 0.5 MG TABLET PO PRN ×2 (18:22→23:45)
[2018-01-16] MEDS: CLOTRIMAZOLE 10 MG TROCHE PO SCH ×2 (18:22→21:05)
[2018-01-16] MEDS: ASCORBIC ACID 500 MG TABLET PO SCH (20:46)
[2018-01-16] MEDS: metroNIDAZOLE 500 MG TABLET PO SCH (20:46)
[2018-01-16] MEDS: SERTRALINE 50 MG TABLET PO SCH (20:47)
[2018-01-16] MEDS: PANTOPRAZOLE 40 MG TABLET PO SCH (20:47)
[2018-01-16] MEDS: ROSUVASTATIN 20 MG TABLET PO SCH (20:47)
[2018-01-16] MEDS: CIPROFLOXACIN 500 MG TABLET PO SCH (20:47)
[2018-01-16] MEDS ORDERED: CARVEDILOL 12.5 MG TABLET PO SCH (21:00)
[2018-01-17] MEDS: SODIUM CHLORIDE 0.9% 1,000 ML IV SCH (01:39)
[2018-01-17 02:19] LABS: Basophils # 0.1 10*3/uL (0.0-0.2); Basophils % 1.2 % (0.0-0.8); Eosinophils # 0.5 10*3/uL (0.0-0.87); Eosinophils % 5.3 % (0.00-10.9); Hematocrit 30.1 VOL% (42.0-52.0); Hemoglobin 9.3 GM/DL (14.0-18.0); Immature Granulocytes % 1.1 %; Immature Granulocytes Absolute 0.09 #; Lymphocytes % 35.8 % (21.2-54.2); Mean Corpuscular HGB Conc 30.9 GM/DL (32-36); Mean Corpuscular Hemoglobin 28 PG (27-34); Mean Corpuscular Volume 90.4 FL (87-102); Mean Platelet Volume 10.7 FL (9.6-12.0); Monocytes # 0.7 10*3/uL (0.11-0.8); Monocytes % 8.8 % (1.7-12.7); Neutrophils % 47.8 % (38.7-73.9); Platelet Count 342 T/CUMM (130-400); Red Blood Count 3.33 MC/CUMM (3.8-5.5); Red Cell Distribution Width 15.6 % (9.3-17.3); White Blood Count 8.4 T/CUMM (4-12)
[2018-01-17 02:38] LABS: Calcium 7.9 MG/DL (8.5-10.1); Osmolality,Calculated 280.1 MOS/KG (273-304); Potassium 4.2 MMOL/L (3.5-5.1)
[2018-01-17] MEDS ORDERED: HEPARIN 5,000 UNIT/1 ML VIAL IV PRN (03:25)
[2018-01-17] MEDS: CLOTRIMAZOLE 10 MG TROCHE PO SCH ×5 (08:03→21:38)
[2018-01-17] MEDS: FUROSEMIDE 40 MG TABLET PO SCH (08:37)
[2018-01-17] MEDS: SPIRONOLACTONE 25 MG TABLET PO SCH (08:37)
[2018-01-17] MEDS: CIPROFLOXACIN 500 MG TABLET PO SCH ×2 (08:37→20:43)
[2018-01-17] MEDS: metroNIDAZOLE 500 MG TABLET PO SCH ×3 (08:37→20:43)
[2018-01-17] MEDS: LORazepam 0.5 MG TABLET PO PRN ×2 (08:37→20:43)
[2018-01-17] MEDS: FLUCONAZOLE 200 MG TABLET PO SCH (08:37)
[2018-01-17] MEDS: PANTOPRAZOLE 40 MG TABLET PO SCH ×2 (08:37→20:43)
[2018-01-17] MEDS: ASCORBIC ACID 500 MG TABLET PO SCH ×2 (08:37→20:43)
[2018-01-17] MEDS: AMIODARONE 200 MG TABLET PO SCH (08:37)
[2018-01-17] MEDS: POLYETHYLENE GLYCOL POWDER 17 GM PACK PO SCH (08:39)
[2018-01-17] MEDS: DOCUSATE SODIUM 100 MG CAPSULE PO SCH (08:39)
[2018-01-17] MEDS ORDERED: FERROUS SULFATE 325 MG TABLET PO SCH (09:00)
[2018-01-17] MEDS ORDERED: PANTOPRAZOLE 40 MG TABLET PO SCH (09:00)
[2018-01-17] MEDS ORDERED: ASPIRIN EC 81 MG TABLET PO SCH (09:00)
[2018-01-17] MEDS ORDERED: LISINOPRIL 10 MG TABLET PO SCH (09:00)
[2018-01-17] MEDS ORDERED: Tiotropium Br/Olodaterol Hcl [Stiolto Respimat Inhal Spray] 4 GM IH SCH (09:00)
[2018-01-17] MEDS: ACETIC ACID 0.25% IRRIGATION 1,000 ML BOTTLE IRRIG SCH (15:40)
[2018-01-17] MEDS: GENTAMICIN 0.1% CREAM 15 GM TUBE TOP SCH (15:40)
[2018-01-17] MEDS: CHLORHEXIDINE 4% SOLN 118 ML BOTTLE TOP SCH (15:40)
[2018-01-17 16:07] LABS: Hematocrit 28.9 VOL% (42.0-52.0); Hemoglobin 9.2 GM/DL (14.0-18.0)
[2018-01-17] MEDS: CYCLOBENZAPRINE 10 MG TABLET PO PRN (18:08)
[2018-01-17] MEDS: ROSUVASTATIN 20 MG TABLET PO SCH (20:43)
[2018-01-17] MEDS: SERTRALINE 50 MG TABLET PO SCH (20:43)
[2018-01-17] MEDS ORDERED: CYCLOBENZAPRINE 10 MG TABLET PO PRN (21:23)
[2018-01-18] MEDS: CLOTRIMAZOLE 10 MG TROCHE PO SCH ×5 (05:09→21:32)
[2018-01-18 06:53] LABS: Basophils # 0.1 10*3/uL (0.0-0.2); Eosinophils # 0.6 10*3/uL (0.0-0.87); Eosinophils % 5.7 % (0.00-10.9); Hematocrit 29.4 VOL% (42.0-52.0); Hemoglobin 9.3 GM/DL (14.0-18.0); Lymphocytes # 2.5 10*3/uL (1.4-4.0); Lymphocytes % 24.6 % (21.2-54.2); Mean Corpuscular HGB Conc 31.6 GM/DL (32-36); Mean Corpuscular Hemoglobin 28 PG (27-34); Mean Corpuscular Volume 89.9 FL (87-102); Mean Platelet Volume 10.3 FL (9.6-12.0); Monocytes # 0.9 10*3/uL (0.11-0.8); Monocytes % 8.8 % (1.7-12.7); Neutrophils # 5.9 10*3/uL (1.4-7.4); Neutrophils % 58.9 % (38.7-73.9); Platelet Count 323 T/CUMM (130-400); Red Blood Count 3.27 MC/CUMM (3.8-5.5); Red Cell Distribution Width 15.7 % (9.3-17.3); White Blood Count 9.9 T/CUMM (4-12)
[2018-01-18 07:15] LABS: Calcium 8.6 MG/DL (8.5-10.1); Osmolality,Calculated 275.4 MOS/KG (273-304); Potassium 4.3 MMOL/L (3.5-5.1)
[2018-01-18] MEDS: CYCLOBENZAPRINE 10 MG TABLET PO PRN ×3 (08:17→21:31)
[2018-01-18] MEDS: SPIRONOLACTONE 25 MG TABLET PO SCH (08:17)
[2018-01-18] MEDS: CIPROFLOXACIN 500 MG TABLET PO SCH ×2 (08:17→21:30)
[2018-01-18] MEDS: LORazepam 0.5 MG TABLET PO PRN ×3 (08:17→21:31)
[2018-01-18] MEDS: DOCUSATE SODIUM 100 MG CAPSULE PO SCH (08:17)
[2018-01-18] MEDS: PANTOPRAZOLE 40 MG TABLET PO SCH ×2 (08:17→21:31)
[2018-01-18] MEDS: AMIODARONE 200 MG TABLET PO SCH (08:17)
[2018-01-18] MEDS: FUROSEMIDE 40 MG TABLET PO SCH (08:18)
[2018-01-18] MEDS: ASCORBIC ACID 500 MG TABLET PO SCH ×2 (08:18→21:30)
[2018-01-18] MEDS: metroNIDAZOLE 500 MG TABLET PO SCH ×3 (08:18→21:30)
[2018-01-18] MEDS: FLUCONAZOLE 200 MG TABLET PO SCH (08:18)
[2018-01-18] MEDS: GENTAMICIN 0.1% CREAM 15 GM TUBE TOP SCH (08:19)
[2018-01-18] MEDS: CHLORHEXIDINE 4% SOLN 118 ML BOTTLE TOP SCH (08:19)
[2018-01-18] MEDS: ACETIC ACID 0.25% IRRIGATION 1,000 ML BOTTLE IRRIG SCH (08:19)
[2018-01-18] MEDS: POLYETHYLENE GLYCOL POWDER 17 GM PACK PO SCH (08:19)
[2018-01-18] MEDS: SERTRALINE 50 MG TABLET PO SCH (21:30)
[2018-01-18] MEDS: ROSUVASTATIN 20 MG TABLET PO SCH (21:31)
[2018-01-19] MEDS: LORazepam 0.5 MG TABLET PO PRN ×3 (03:06→20:44)
[2018-01-19] MEDS: CYCLOBENZAPRINE 10 MG TABLET PO PRN ×3 (04:18→18:10)
[2018-01-19 04:34] LABS: Basophils # 0.1 10*3/uL (0.0-0.2); Basophils % 0.6 % (0.0-0.8); Eosinophils # 0.4 10*3/uL (0.0-0.87); Eosinophils % 2.9 % (0.00-10.9); Hematocrit 28.2 VOL% (42.0-52.0); Hemoglobin 8.7 GM/DL (14.0-18.0); Immature Granulocytes % 0.9 %; Immature Granulocytes Absolute 0.12 #; Lymphocytes # 2.2 10*3/uL (1.4-4.0); Lymphocytes % 17.6 % (21.2-54.2); Mean Corpuscular HGB Conc 30.9 GM/DL (32-36); Mean Corpuscular Hemoglobin 28 PG (27-34); Mean Corpuscular Volume 90.4 FL (87-102); Monocytes # 1.3 10*3/uL (0.11-0.8); Monocytes % 9.8 % (1.7-12.7); Neutrophils # 8.7 10*3/uL (1.4-7.4); Neutrophils % 68.2 % (38.7-73.9); Platelet Count 325 T/CUMM (130-400); Red Blood Count 3.12 MC/CUMM (3.8-5.5); Red Cell Distribution Width 15.9 % (9.3-17.3); White Blood Count 12.7 T/CUMM (4-12)
[2018-01-19 04:57] LABS: Calcium 8.1 MG/DL (8.5-10.1); Osmolality,Calculated 274.7 MOS/KG (273-304)
[2018-01-19] MEDS: CLOTRIMAZOLE 10 MG TROCHE PO SCH ×5 (05:01→21:12)
[2018-01-19] MEDS: ASCORBIC ACID 500 MG TABLET PO SCH ×2 (09:37→20:44)
[2018-01-19] MEDS: DOCUSATE SODIUM 100 MG CAPSULE PO SCH (09:37)
[2018-01-19] MEDS: metroNIDAZOLE 500 MG TABLET PO SCH ×3 (09:38→20:43)
[2018-01-19] MEDS: PANTOPRAZOLE 40 MG TABLET PO SCH ×2 (09:39→20:44)
[2018-01-19] MEDS: CIPROFLOXACIN 500 MG TABLET PO SCH ×2 (09:39→20:44)
[2018-01-19] MEDS: FUROSEMIDE 40 MG TABLET PO SCH (09:39)
[2018-01-19] MEDS: SPIRONOLACTONE 25 MG TABLET PO SCH (09:39)
[2018-01-19] MEDS: FLUCONAZOLE 200 MG TABLET PO SCH (09:40)
[2018-01-19] MEDS: AMIODARONE 200 MG TABLET PO SCH (09:41)
[2018-01-19] MEDS: POLYETHYLENE GLYCOL POWDER 17 GM PACK PO SCH (09:41)
[2018-01-19] MEDS ORDERED: MAGNESIUM SULF RIDER 2 GM in PREMIX 1 EACH IV PRN (11:11)
[2018-01-19] MEDS ORDERED: MAGNESIUM SULF RIDER 4 GM in PREMIX 1 EACH IV PRN (11:11)
[2018-01-19 12:36] LABS: INR 1.2; PT Patient Result 12.3 SECS
[2018-01-19] MEDS: CARVEDILOL 3.125 MG TABLET PO SCH ×2 (13:19→20:44)
[2018-01-19] MEDS: HEPARIN DRIP 25,000 UNITS/500 ML PREMIX IV SCH (13:20)
[2018-01-19] MEDS: ACETIC ACID 0.25% IRRIGATION 1,000 ML BOTTLE IRRIG SCH (15:28)
[2018-01-19] MEDS: GENTAMICIN 0.1% CREAM 15 GM TUBE TOP SCH (15:28)
[2018-01-19] MEDS: CHLORHEXIDINE 4% SOLN 118 ML BOTTLE TOP SCH (15:28)
[2018-01-19] MEDS: SERTRALINE 50 MG TABLET PO SCH (20:43)
[2018-01-19] MEDS: ROSUVASTATIN 20 MG TABLET PO SCH (20:44)
[2018-01-19] MEDS ORDERED: HEPARIN 5,000 UNIT/1 ML VIAL IV PRN (23:13)
[2018-01-20] MEDS: CYCLOBENZAPRINE 10 MG TABLET PO PRN ×2 (00:25→09:01)
[2018-01-20 01:37] LABS: Basophils # 0.1 10*3/uL (0.0-0.2); Basophils % 0.7 % (0.0-0.8); Eosinophils # 0.5 10*3/uL (0.0-0.87); Eosinophils % 3.6 % (0.00-10.9); Hemoglobin 9.1 GM/DL (14.0-18.0); Immature Granulocytes % 0.8 %; Immature Granulocytes Absolute 0.11 #; Lymphocytes % 23.4 % (21.2-54.2); Mean Corpuscular HGB Conc 31.4 GM/DL (32-36); Mean Corpuscular Hemoglobin 28 PG (27-34); Monocytes # 1.6 10*3/uL (0.11-0.8); Monocytes % 12.2 % (1.7-12.7); Neutrophils # 7.7 10*3/uL (1.4-7.4); Neutrophils % 59.3 % (38.7-73.9); Platelet Count 328 T/CUMM (130-400); Red Blood Count 3.26 MC/CUMM (3.8-5.5); Red Cell Distribution Width 16.1 % (9.3-17.3)
[2018-01-20 02:00] LABS: Calcium 8.1 MG/DL (8.5-10.1); Osmolality,Calculated 275.7 MOS/KG (273-304); Potassium 3.9 MMOL/L (3.5-5.1)
[2018-01-20 02:02] LABS: Calcium 8.3 MG/DL (8.5-10.1); Osmolality,Calculated 273.8 MOS/KG (273-304); Potassium 3.9 MMOL/L (3.5-5.1)
[2018-01-20] MEDS: HEPARIN DRIP 25,000 UNITS/500 ML PREMIX IV SCH (04:25)
[2018-01-20] MEDS: CLOTRIMAZOLE 10 MG TROCHE PO SCH ×4 (05:10→17:34)
[2018-01-20] MEDS: LORazepam 0.5 MG TABLET PO PRN (09:01)
[2018-01-20] MEDS: PANTOPRAZOLE 40 MG TABLET PO SCH (09:01)
[2018-01-20] MEDS: ASCORBIC ACID 500 MG TABLET PO SCH (09:01)
[2018-01-20] MEDS: CIPROFLOXACIN 500 MG TABLET PO SCH (09:01)
[2018-01-20] MEDS: DOCUSATE SODIUM 100 MG CAPSULE PO SCH (09:01)
[2018-01-20] MEDS: AMIODARONE 200 MG TABLET PO SCH (09:01)
[2018-01-20] MEDS: metroNIDAZOLE 500 MG TABLET PO SCH ×2 (09:01→14:14)
[2018-01-20] MEDS: CARVEDILOL 3.125 MG TABLET PO SCH (09:01)
[2018-01-20] MEDS: SPIRONOLACTONE 25 MG TABLET PO SCH (09:01)
[2018-01-20] MEDS: FUROSEMIDE 40 MG TABLET PO SCH (09:01)
[2018-01-20] MEDS: FLUCONAZOLE 200 MG TABLET PO SCH (09:01)
[2018-01-20] MEDS: POLYETHYLENE GLYCOL POWDER 17 GM PACK PO SCH (09:06)
[2018-01-20 11:41] VITALS: BP 122/78
[2018-01-20] MEDS ORDERED: CARVEDILOL 6.25 MG TABLET PO SCH (12:00)
[2018-01-20] MEDS ORDERED: ASPIRIN EC 81 MG TABLET PO SCH (12:00)
[2018-01-20] MEDS ORDERED: HEPARIN 5,000 UNIT/1 ML VIAL IV PRN (13:07)
[2018-01-20] MEDS: GENTAMICIN 0.1% CREAM 15 GM TUBE TOP SCH (14:15)
[2018-01-20] MEDS: CHLORHEXIDINE 4% SOLN 118 ML BOTTLE TOP SCH (14:15)
[2018-01-20] MEDS: ACETIC ACID 0.25% IRRIGATION 1,000 ML BOTTLE IRRIG SCH (14:15)
[2018-01-20] MEDS ORDERED: ENOXAPARIN 100 MG/ML SYRINGE SUBCUT SCH (16:00)
[2018-01-20] MEDS ORDERED: WARFARIN 5 MG TABLET PO SCH (18:00)
== END 2018-01-20 17:38 | disposition home or self-care (01) | DRG 920 ==
LOC: N.ED 09:37 → N.EDINP 12:31 → N.TELES 13:41
PROVIDERS: ADMIT Hospitalist; ATTEND Hospitalist

== ENCOUNTER 2018-02-03 12:16 | Observation (INO) ==
[2018-02-03] MEDS ORDERED: MORPHINE 4 MG/1 ML VIAL IV STA (12:33)
[2018-02-03] MEDS ORDERED: ONDANSETRON 4 MG/2 ML VIAL IV STA (12:33)
[2018-02-03] MEDS ORDERED: NITROGLYCERIN SL 0.4 MG TABLET SL PRN ×2 (12:36→16:18)
[2018-02-03] MEDS ORDERED: ENOXAPARIN 100 MG/ML SYRINGE SUBCUT STA (12:36)
[2018-02-03] MEDS ORDERED: ASPIRIN 325 MG TABLET PO STA (12:36)
[2018-02-03] MEDS ORDERED: NITROGLYCERIN 2% OINT 1 INCH/GM PACK TOP STA (12:36)
[2018-02-03 14:00] LABS: Hematocrit 29.3 VOL% (42.0-52.0); Hemoglobin 9.2 GM/DL (14.0-18.0); Red Blood Count 3.23 MC/CUMM (3.8-5.5); White Blood Count 10.6 T/CUMM (4-12)
[2018-02-03 14:01] LABS: Basophils # 0.1 10*3/uL (0.0-0.2); Basophils % 0.8 % (0.0-0.8); Eosinophils # 0.4 10*3/uL (0.0-0.87); Immature Granulocytes % 0.9 %; Lymphocytes # 2.3 10*3/uL (1.4-4.0); Lymphocytes % 21.5 % (21.2-54.2); Mean Corpuscular HGB Conc 31.4 GM/DL (32-36); Mean Corpuscular Hemoglobin 29 PG (27-34); Mean Corpuscular Volume 90.7 FL (87-102); Mean Platelet Volume 10.2 FL (9.6-12.0); Monocytes # 0.9 10*3/uL (0.11-0.8); Monocytes % 8.6 % (1.7-12.7); Neutrophils # 6.8 10*3/uL (1.4-7.4); Neutrophils % 64.2 % (38.7-73.9); Platelet Count 364 T/CUMM (130-400); Red Cell Distribution Width 16.1 % (9.3-17.3)
[2018-02-03 14:11] LABS: INR 1.6; PT Patient Result 16.8 SECS
[2018-02-03 14:25] LABS: Alanine Aminotransferase 16 U/L (16-61); Albumin 3.1 G/DL (3.4-5.0); Alkaline Phosphatase 52 U/L (45-117); Aspartate Amino Transferase 18 U/L (0-37); Bilirubin,Total < 0.39 MG/DL (0.2-1.0); Blood Urea Nitrogen 9 MG/DL (7-18); Calcium 8.6 MG/DL (8.5-10.1); Glucose 94 MG/DL (74-106); Osmolality,Calculated 273.7 MOS/KG (273-304); Potassium 4.1 MMOL/L (3.5-5.1); Sodium 138 MMOL/L (136-145); Total Protein 6.7 G/DL (6.4-8.3)
[2018-02-03] MEDS ORDERED: ALBUTEROL/IPRATROPIUM 3 ML NEB RESP TX STA (15:26)
[2018-02-03] MEDS ORDERED: ONDANSETRON 4 MG/2 ML VIAL IV PRN (16:13)
[2018-02-03] MEDS ORDERED: WARFARIN 5 MG TABLET PO ONE (16:17)
[2018-02-03] MEDS ORDERED: ALUMINUM/MAGNES/SIMETH MAX STR 30 ML UDCUP PO PRN (16:18)
[2018-02-03] MEDS ORDERED: LORazepam 1 MG TABLET PO PRN (16:18)
[2018-02-03] MEDS ORDERED: KETOROLAC 30 MG/1 ML VIAL IM ONE (16:20)
[2018-02-03] MEDS ORDERED: WARFARIN 5 MG TABLET PO SCH (18:00)
[2018-02-03] MEDS: MORPHINE 4 MG/1 ML VIAL IV PRN (18:29)
[2018-02-03] MEDS ORDERED: ROSUVASTATIN 20 MG TABLET PO SCH (21:00)
[2018-02-03] MEDS ORDERED: SERTRALINE 50 MG TABLET PO SCH (21:00)
[2018-02-03] MEDS: metroNIDAZOLE 500 MG TABLET PO SCH (22:05)
[2018-02-03] MEDS: ASCORBIC ACID 500 MG TABLET PO SCH (22:05)
[2018-02-03] MEDS: CIPROFLOXACIN 500 MG TABLET PO SCH (22:05)
[2018-02-03] MEDS: CARVEDILOL 6.25 MG TABLET PO SCH (22:06)
[2018-02-04] MEDS: MORPHINE 4 MG/1 ML VIAL IV PRN (03:52)
[2018-02-04 04:43] LABS: Basophils # 0.1 10*3/uL (0.0-0.2); Basophils % 0.8 % (0.0-0.8); Eosinophils # 0.4 10*3/uL (0.0-0.87); Eosinophils % 5.5 % (0.00-10.9); Hematocrit 27.8 VOL% (42.0-52.0); Hemoglobin 8.9 GM/DL (14.0-18.0); Immature Granulocytes % 0.9 %; Immature Granulocytes Absolute 0.07 #; Lymphocytes # 2.2 10*3/uL (1.4-4.0); Lymphocytes % 29.3 % (21.2-54.2); Mean Corpuscular Hemoglobin 28 PG (27-34); Mean Corpuscular Volume 88.8 FL (87-102); Mean Platelet Volume 10.4 FL (9.6-12.0); Monocytes # 0.7 10*3/uL (0.11-0.8); Neutrophils % 54.5 % (38.7-73.9); Platelet Count 354 T/CUMM (130-400); Red Blood Count 3.13 MC/CUMM (3.8-5.5); Red Cell Distribution Width 16.3 % (9.3-17.3); White Blood Count 7.4 T/CUMM (4-12)
[2018-02-04 05:07] LABS: INR 1.6; PT Patient Result 17.1 SECS
[2018-02-04 05:15] LABS: Alanine Aminotransferase 15 U/L (16-61); Albumin 2.9 G/DL (3.4-5.0); Alkaline Phosphatase 52 U/L (45-117); Aspartate Amino Transferase 16 U/L (0-37); Bilirubin,Total < 0.39 MG/DL (0.2-1.0); Blood Urea Nitrogen 8 MG/DL (7-18); Calcium 8.4 MG/DL (8.5-10.1); Glucose 97 MG/DL (74-106); Osmolality,Calculated 276.4 MOS/KG (273-304); Potassium 4.6 MMOL/L (3.5-5.1); Sodium 140 MMOL/L (136-145); Total Protein 5.7 G/DL (6.4-8.3)
[2018-02-04] MEDS ORDERED: ENOXAPARIN 100 MG/ML SYRINGE SUBCUT SCH (07:00)
[2018-02-04 07:37] VITALS: BP 115/66
[2018-02-04] MEDS: CIPROFLOXACIN 500 MG TABLET PO SCH (08:45)
[2018-02-04] MEDS: CARVEDILOL 6.25 MG TABLET PO SCH (08:46)
[2018-02-04] MEDS: metroNIDAZOLE 500 MG TABLET PO SCH (08:46)
[2018-02-04] MEDS: ASCORBIC ACID 500 MG TABLET PO SCH (08:49)
[2018-02-04] MEDS ORDERED: PANTOPRAZOLE 40 MG TABLET PO SCH (09:00)
[2018-02-04] MEDS ORDERED: OLODATEROL HCL IH SCH (09:00)
[2018-02-04] MEDS ORDERED: FLUCONAZOLE 200 MG TABLET PO SCH (09:00)
[2018-02-04] MEDS ORDERED: [UNRECOGNIZED DRUG - OTHER] IH SCH (09:00)
[2018-02-04] MEDS ORDERED: TIOTROPIUM BR IH SCH (09:00)
[2018-02-04] MEDS ORDERED: FERROUS SULFATE 325 MG TABLET PO SCH (09:00)
[2018-02-04] MEDS ORDERED: FUROSEMIDE 40 MG TABLET PO SCH (09:00)
[2018-02-04] MEDS ORDERED: AMIODARONE 200 MG TABLET PO SCH (09:00)
[2018-02-04] MEDS ORDERED: LISINOPRIL 10 MG TABLET PO SCH (09:00)
[2018-02-04] MEDS ORDERED: ASPIRIN EC 81 MG TABLET PO SCH (09:00)
[2018-02-04] MEDS ORDERED: SPIRONOLACTONE 25 MG TABLET PO SCH (09:00)
== END 2018-02-04 12:05 | disposition home or self-care (01) ==
LOC: EDUNIT# → EDBD → N.EDINP 12:16 → N.ED 12:16 → N.EDINP 17:18 → N.TELEN 17:27
PROVIDERS: ADMIT Internal Medicine Geriatric Medicine; ATTEND Internal Medicine Geriatric Medicine

== ENCOUNTER 2018-07-05 13:38 | Inpatient (IN) ==
[2018-07-05] MEDS ORDERED: MEPERIDINE 25 MG/1 ML VIAL IV STA (13:52)
[2018-07-05] MEDS ORDERED: SODIUM CHLORIDE 0.9% 500 ML IV STA (13:52)
[2018-07-05] MEDS ORDERED: ONDANSETRON 4 MG/2 ML VIAL IV STA (13:52)
[2018-07-05 14:09] LABS: Basophils # 0.1 10*3/uL (0.0-0.2); Basophils % 0.8 % (0.0-0.8); Eosinophils # 0.4 10*3/uL (0.0-0.87); Eosinophils % 3.6 % (0.00-10.9); Hematocrit 39.2 VOL% (42.0-52.0); Lymphocytes # 2.3 10*3/uL (1.4-4.0); Lymphocytes % 23.9 % (21.2-54.2); Mean Corpuscular HGB Conc 33.2 GM/DL (32-36); Mean Corpuscular Hemoglobin 31 PG (27-34); Mean Corpuscular Volume 93.8 FL (87-102); Mean Platelet Volume 10.6 FL (9.6-12.0); Monocytes # 0.9 10*3/uL (0.11-0.8); Monocytes % 8.9 % (1.7-12.7); Neutrophils % 61.8 % (38.7-73.9); Platelet Count 224 T/CUMM (130-400); Red Blood Count 4.18 MC/CUMM (3.8-5.5); Red Cell Distribution Width 14.6 % (9.3-17.3); White Blood Count 9.7 T/CUMM (4-12)
[2018-07-05] MEDS ORDERED: HYDROmorphone 2 MG/1 ML VIAL IV STA (14:09)
[2018-07-05] MEDS ORDERED: HYDROmorphone 2 MG/1 ML VIAL ONE (14:09)
[2018-07-05 14:19] LABS: INR 2.4
[2018-07-05 14:20] LABS: PT Patient Result 24.5 SECS; Partial Thromboplastin Time 43.6 SECS (0-40)
[2018-07-05 14:33] LABS: Lactic Acid 1.2 MMOL/L (0.4-2.0)
[2018-07-05 14:58] LABS: Albumin 4.2 G/DL (3.4-5.0); Bilirubin,Total 0.4 MG/DL (0.2-1.0); Osmolality,Calculated 279.4 MOS/KG (273-304); Potassium 4.4 MMOL/L (3.5-5.1); Total Protein 7.8 G/DL (6.4-8.3)
[2018-07-05] MEDS ORDERED: ONDANSETRON 4 MG/2 ML VIAL IV PRN (15:18)
[2018-07-05] MEDS ORDERED: HYDROmorphone 2 MG/1 ML VIAL IV PRN (15:18)
[2018-07-05] MEDS ORDERED: LACTATED RINGERS 1,000 ML IV SCH (15:30)
[2018-07-05 15:31] LABS: Apearance,Urine CLEAR (Clear); Bilirubin,Urine Negative (Negative); Blood, Urine Negative (Negative); Glucose,Urine (UA) Negative (Negative); Hyaline Casts,Urine 1 /LPF (0-3); Ketones,Urine Negative (Negative); Mucus,Urine Occasional /LPF (Occasional); Nitrite,Urine Negative (Negative); Protein,Urine Negative; Urine Color Straw (Yellow); Urine Specific Gravity 1.014 (1.001-1.035); Urine Urobilinogen < 2.0 EU/DL (0.2-1.0); WBC,Urine 1 /HPF (0-6)
[2018-07-05] MEDS ORDERED: MORPHINE 4 MG/1 ML VIAL IM PRN (18:24)
[2018-07-05] MEDS: MORPHINE 4 MG/1 ML VIAL IV PRN ×2 (18:40→22:06)
[2018-07-05] MEDS ORDERED: ALBUTEROL/IPRATROPIUM 3 ML NEB RESP TX SCH (19:00)
[2018-07-05] MEDS ORDERED: MORPHINE 4 MG/1 ML VIAL IV ONE (23:55)
[2018-07-05] MEDS ORDERED: KETOROLAC 30 MG/1 ML VIAL IV ONE (23:55)
[2018-07-06] MEDS ORDERED: HYDROmorphone 2 MG/1 ML VIAL IV PRN (00:34)
[2018-07-06 00:54] LABS: Basophils # 0.1 10*3/uL (0.0-0.2); Basophils % 0.5 % (0.0-0.8); Eosinophils # 0.4 10*3/uL (0.0-0.87); Eosinophils % 3.7 % (0.00-10.9); Hematocrit 36.2 VOL% (42.0-52.0); Hemoglobin 12.1 GM/DL (14.0-18.0); Immature Granulocytes % 0.7 %; Immature Granulocytes Absolute 0.07 #; Lymphocytes # 1.9 10*3/uL (1.4-4.0); Lymphocytes % 19.4 % (21.2-54.2); Mean Corpuscular HGB Conc 33.4 GM/DL (32-36); Mean Corpuscular Hemoglobin 31 PG (27-34); Mean Corpuscular Volume 93.1 FL (87-102); Mean Platelet Volume 10.7 FL (9.6-12.0); Monocytes # 0.8 10*3/uL (0.11-0.8); Monocytes % 7.9 % (1.7-12.7); Neutrophils # 6.5 10*3/uL (1.4-7.4); Neutrophils % 67.8 % (38.7-73.9); Platelet Count 180 T/CUMM (130-400); Red Blood Count 3.89 MC/CUMM (3.8-5.5); Red Cell Distribution Width 14.5 % (9.3-17.3); White Blood Count 9.6 T/CUMM (4-12)
[2018-07-06 00:54] LABS: INR 2.2
[2018-07-06 00:56] LABS: PT Patient Result 22.9 SECS; Partial Thromboplastin Time 42.5 SECS (0-40)
[2018-07-06 01:07] LABS: Calcium 8.6 MG/DL (8.5-10.1); Osmolality,Calculated 279.4 MOS/KG (273-304); Potassium 4.2 MMOL/L (3.5-5.1)
[2018-07-06 05:06] LABS: Basophils # 0.1 10*3/uL (0.0-0.2); Basophils % 0.5 % (0.0-0.8); Eosinophils # 0.4 10*3/uL (0.0-0.87); Eosinophils % 3.7 % (0.00-10.9); Hematocrit 35.4 VOL% (42.0-52.0); Hemoglobin 11.9 GM/DL (14.0-18.0); Immature Granulocytes % 0.6 %; Immature Granulocytes Absolute 0.06 #; Lymphocytes % 20.5 % (21.2-54.2); Mean Corpuscular HGB Conc 33.6 GM/DL (32-36); Mean Corpuscular Hemoglobin 31 PG (27-34); Mean Corpuscular Volume 91.7 FL (87-102); Mean Platelet Volume 10.2 FL (9.6-12.0); Monocytes # 0.8 10*3/uL (0.11-0.8); Monocytes % 7.8 % (1.7-12.7); Neutrophils # 6.4 10*3/uL (1.4-7.4); Neutrophils % 66.9 % (38.7-73.9); Platelet Count 174 T/CUMM (130-400); Red Blood Count 3.86 MC/CUMM (3.8-5.5); Red Cell Distribution Width 14.6 % (9.3-17.3); White Blood Count 9.6 T/CUMM (4-12)
[2018-07-06 05:40] LABS: Calcium 8.2 MG/DL (8.5-10.1); Osmolality,Calculated 280.4 MOS/KG (273-304); Potassium 4.3 MMOL/L (3.5-5.1)
[2018-07-06] MEDS: KETOROLAC 15 MG/1 ML VIAL IV SCH ×4 (06:40→23:01)
[2018-07-06] MEDS ORDERED: ALUMINUM/MAGNES/SIMETH MAX STR 30 ML UDCUP PO PRN (10:12)
[2018-07-06] MEDS: ASPIRIN EC 81 MG TABLET PO SCH (10:35)
[2018-07-06] MEDS: PANTOPRAZOLE 40 MG TABLET PO SCH (10:35)
[2018-07-06] MEDS: AMIODARONE 200 MG TABLET PO SCH (10:36)
[2018-07-06] MEDS: ASCORBIC ACID 500 MG TABLET PO SCH ×2 (10:36→21:30)
[2018-07-06] MEDS: LISINOPRIL 10 MG TABLET PO SCH (10:36)
[2018-07-06] MEDS: FUROSEMIDE 40 MG TABLET PO SCH (10:36)
[2018-07-06] MEDS: SERTRALINE 50 MG TABLET PO SCH (10:37)
[2018-07-07 06:11] LABS: INR 1.5; PT Patient Result 15.8 SECS
[2018-07-07] MEDS: KETOROLAC 15 MG/1 ML VIAL IV SCH ×2 (06:20→11:43)
[2018-07-07 08:00] LABS: Basophils % 0.5 % (0.0-0.8); Eosinophils # 0.4 10*3/uL (0.0-0.87); Eosinophils % 4.8 % (0.00-10.9); Hematocrit 37.2 VOL% (42.0-52.0); Hemoglobin 12.2 GM/DL (14.0-18.0); Immature Granulocytes % 0.8 %; Immature Granulocytes Absolute 0.06 #; Lymphocytes % 25.4 % (21.2-54.2); Mean Corpuscular HGB Conc 32.8 GM/DL (32-36); Mean Corpuscular Hemoglobin 31 PG (27-34); Mean Corpuscular Volume 94.2 FL (87-102); Mean Platelet Volume 10.3 FL (9.6-12.0); Monocytes # 0.6 10*3/uL (0.11-0.8); Neutrophils # 4.8 10*3/uL (1.4-7.4); Neutrophils % 60.5 % (38.7-73.9); Platelet Count 187 T/CUMM (130-400); Red Blood Count 3.95 MC/CUMM (3.8-5.5); Red Cell Distribution Width 14.3 % (9.3-17.3); White Blood Count 7.9 T/CUMM (4-12)
[2018-07-07 08:28] LABS: Calcium 8.5 MG/DL (8.5-10.1); Osmolality,Calculated 282.3 MOS/KG (273-304); Potassium 4.5 MMOL/L (3.5-5.1)
[2018-07-07] MEDS: SPIRONOLACTONE 25 MG TABLET PO SCH (08:55)
[2018-07-07] MEDS: ROSUVASTATIN 20 MG TABLET PO SCH (08:55)
[2018-07-07] MEDS: SERTRALINE 50 MG TABLET PO SCH (08:56)
[2018-07-07] MEDS: LISINOPRIL 10 MG TABLET PO SCH (08:56)
[2018-07-07] MEDS: AMIODARONE 200 MG TABLET PO SCH (08:56)
[2018-07-07] MEDS: ASPIRIN EC 81 MG TABLET PO SCH (08:56)
[2018-07-07] MEDS: ASCORBIC ACID 500 MG TABLET PO SCH ×2 (08:56→21:12)
[2018-07-07] MEDS: FUROSEMIDE 40 MG TABLET PO SCH (08:57)
[2018-07-07] MEDS: PANTOPRAZOLE 40 MG TABLET PO SCH (09:00)
[2018-07-07] MEDS ORDERED: cefOXitin 2,000 MG in SYRINGE 1 EACH IV ONE (10:00)
[2018-07-07] MEDS ORDERED: LIDOCAINE 1%/EPI INJ 20 ML VIAL ONE (11:30)
[2018-07-07] MEDS ORDERED: LACTATED RINGERS 1,000 ML IV SCH ×2 (12:00→14:30)
[2018-07-07] MEDS ORDERED: HYDROmorphone 2 MG/1 ML VIAL ONE ×2 (14:24→15:24)
[2018-07-07] MEDS ORDERED: ONDANSETRON 4 MG/2 ML VIAL ONE ×2 (14:24→14:42)
[2018-07-07] MEDS ORDERED: ONDANSETRON 4 MG/2 ML VIAL IV PRN (14:26)
[2018-07-07] MEDS: HYDROmorphone 2 MG/1 ML VIAL IV PRN ×7 (14:29→16:12)
[2018-07-07 14:33] LABS: Apearance,Urine CLEAR (Clear); Bilirubin,Urine Negative (Negative); Blood, Urine Negative (Negative); Glucose,Urine (UA) Negative (Negative); Ketones,Urine Negative (Negative); Nitrite,Urine Negative (Negative); Protein,Urine Negative; Urine Color Straw (Yellow); Urine Specific Gravity 1.008 (1.001-1.035); Urine Urobilinogen < 2.0 EU/DL (0.2-1.0); WBC,Urine <1 /HPF (0-6)
[2018-07-07] MEDS ORDERED: fentaNYL 100 MCG/2 ML VIAL ONE (14:41)
[2018-07-07] MEDS ORDERED: SEVOFLURANE 1 UNIT/15 MINUTE INH ONE (14:41)
[2018-07-07] MEDS ORDERED: MIDAZOLAM 2 MG/2 ML VIAL ONE (14:41)
[2018-07-07] MEDS ORDERED: PROPOFOL 200 MG/20 ML VIAL IV ONE (14:41)
[2018-07-07] MEDS ORDERED: NEOSTIGMINE 10 MG/10 ML VIAL ONE (14:42)
[2018-07-07] MEDS ORDERED: KETOROLAC 30 MG/1 ML VIAL ONE (14:42)
[2018-07-07] MEDS ORDERED: ROCURONIUM 100 MG/10 ML VIAL IV ONE (14:42)
[2018-07-07] MEDS ORDERED: ACETAMINOPHEN 1,000 MG/100 ML VIAL IV ONE (14:42)
[2018-07-07] MEDS ORDERED: LACTATED RINGERS 1,000 ML IV ONE (14:42)
[2018-07-07] MEDS ORDERED: GLYCOPYRROLATE 0.4 MG/2 ML VIAL ONE (14:42)
[2018-07-07] MEDS ORDERED: MEPERIDINE 25 MG/1 ML VIAL IV PRN (15:00)
[2018-07-07] MEDS ORDERED: MEPERIDINE 25 MG/1 ML VIAL ONE (15:02)
[2018-07-07] MEDS ORDERED: BUPIVACAINE 0.5% 50 ML VIAL ONE (15:44)
[2018-07-07] MEDS ORDERED: EPINEPHrine 1 MG/ML VIAL ONE (15:47)
[2018-07-07] MEDS ORDERED: HYDROmorphone PCA 30 MG/30 ML SYRINGE IV ONE (16:00)
[2018-07-07] MEDS: HYDROmorphone PCA 30 MG/30 ML SYRINGE IV SCH (16:10)
[2018-07-07] MEDS: ceFAZolin 1,000 MG in SYRINGE 1 EACH IV SCH ×3 (17:25→21:15)
[2018-07-07] MEDS: DEXTROSE 5% NACL 0.45% 1,000 ML IV SCH (17:25)
[2018-07-08] MEDS: DEXTROSE 5% NACL 0.45% 1,000 ML IV SCH ×3 (02:44→23:51)
[2018-07-08] MEDS: ceFAZolin 1,000 MG in SYRINGE 1 EACH IV SCH ×4 (04:11→21:05)
[2018-07-08 06:39] LABS: Basophils # 0.1 10*3/uL (0.0-0.2); Basophils % 0.5 % (0.0-0.8); Eosinophils # 0.4 10*3/uL (0.0-0.87); Eosinophils % 2.7 % (0.00-10.9); Hematocrit 35.8 VOL% (42.0-52.0); Hemoglobin 11.9 GM/DL (14.0-18.0); Immature Granulocytes % 1.1 %; Immature Granulocytes Absolute 0.16 #; Lymphocytes # 1.4 10*3/uL (1.4-4.0); Lymphocytes % 9.3 % (21.2-54.2); Mean Corpuscular HGB Conc 33.2 GM/DL (32-36); Mean Corpuscular Hemoglobin 31 PG (27-34); Mean Corpuscular Volume 94.2 FL (87-102); Mean Platelet Volume 11.1 FL (9.6-12.0); Monocytes # 1.3 10*3/uL (0.11-0.8); Monocytes % 8.5 % (1.7-12.7); Neutrophils # 11.8 10*3/uL (1.4-7.4); Neutrophils % 77.9 % (38.7-73.9); Platelet Count 188 T/CUMM (130-400); Red Cell Distribution Width 14.5 % (9.3-17.3); White Blood Count 15.1 T/CUMM (4-12)
[2018-07-08 06:46] LABS: Calcium 7.6 MG/DL (8.5-10.1); Osmolality,Calculated 272.2 MOS/KG (273-304); Potassium 4.4 MMOL/L (3.5-5.1)
[2018-07-08 08:31] LABS: INR 1.2; PT Patient Result 12.4 SECS
[2018-07-08] MEDS: FUROSEMIDE 40 MG TABLET PO SCH (09:06)
[2018-07-08] MEDS: ASCORBIC ACID 500 MG TABLET PO SCH ×2 (09:06→21:01)
[2018-07-08] MEDS: SPIRONOLACTONE 25 MG TABLET PO SCH (09:06)
[2018-07-08] MEDS: PANTOPRAZOLE 40 MG TABLET PO SCH (09:06)
[2018-07-08] MEDS: ROSUVASTATIN 20 MG TABLET PO SCH (09:07)
[2018-07-08] MEDS: ASPIRIN EC 81 MG TABLET PO SCH (09:07)
[2018-07-08] MEDS: LISINOPRIL 10 MG TABLET PO SCH (09:07)
[2018-07-08] MEDS: SERTRALINE 50 MG TABLET PO SCH (09:08)
[2018-07-08] MEDS: AMIODARONE 200 MG TABLET PO SCH (09:08)
[2018-07-08] MEDS: HEPARIN DRIP 25,000 UNITS/500 ML PREMIX IV SCH (11:55)
[2018-07-08] MEDS: HYDROmorphone PCA 30 MG/30 ML SYRINGE IV SCH ×2 (17:16→17:52)
[2018-07-08] MEDS: ONDANSETRON 4 MG/2 ML VIAL IV PRN (20:35)
[2018-07-09] MEDS: PROMETHAZINE INJ 12.5 MG in SODIUM CHLORIDE 0.9% 50 ML IV PRN (03:16)
[2018-07-09] MEDS: ceFAZolin 1,000 MG in SYRINGE 1 EACH IV SCH ×2 (03:50→09:49)
[2018-07-09 04:29] LABS: INR 1.1
[2018-07-09 04:36] LABS: Basophils # 0.1 10*3/uL (0.0-0.2); Basophils % 0.4 % (0.0-0.8); Eosinophils # 0.1 10*3/uL (0.0-0.87); Eosinophils % 0.4 % (0.00-10.9); Hematocrit 37.8 VOL% (42.0-52.0); Hemoglobin 11.9 GM/DL (14.0-18.0); Immature Granulocytes % 0.8 %; Immature Granulocytes Absolute 0.19 #; Lymphocytes # 2.1 10*3/uL (1.4-4.0); Lymphocytes % 9.2 % (21.2-54.2); Mean Corpuscular HGB Conc 31.5 GM/DL (32-36); Mean Corpuscular Hemoglobin 31 PG (27-34); Mean Corpuscular Volume 97.9 FL (87-102); Mean Platelet Volume 13.2 FL (9.6-12.0); Monocytes % 8.6 % (1.7-12.7); Neutrophils # 18.4 10*3/uL (1.4-7.4); Neutrophils % 80.6 % (38.7-73.9); Platelet Count 106 T/CUMM (130-400); Red Blood Count 3.86 MC/CUMM (3.8-5.5); Red Cell Distribution Width 14.7 % (9.3-17.3); White Blood Count 22.8 T/CUMM (4-12)
[2018-07-09 04:37] LABS: Calcium 7.5 MG/DL (8.5-10.1); Osmolality,Calculated 270.4 MOS/KG (273-304)
[2018-07-09 05:43] LABS: Band Neutrophils 7 % (0-10); Lymphocytes 14 % (20-55); Macrocytosis Slight; Platelet Estimate Decreased; Segmented Neutrophils 72 % (50-85); Total Cells Counted 100
[2018-07-09] MEDS: DEXTROSE 5% NACL 0.45% 1,000 ML IV SCH (06:08)
[2018-07-09] MEDS: HEPARIN DRIP 25,000 UNITS/500 ML PREMIX IV SCH ×2 (06:09→19:10)
[2018-07-09] MEDS ORDERED: LACTATED RINGERS 1,000 ML IV ONE (06:19)
[2018-07-09] MEDS: ONDANSETRON 4 MG/2 ML VIAL IV PRN ×3 (07:05→23:16)
[2018-07-09 08:45] LABS: ABG Base Excess -1.2 MMOL/L (-2.5-2.5); ABG HCO3 23.2 MMOL/L (20-26); ABG Oxygen Saturation 85.2 % (95-100); ABG PH 7.346 (7.35-7.45); ABG PO2 53.9 MM HG (80-95); ABG TCO2 22.4 MMOL/L (23-27)
[2018-07-09] MEDS ORDERED: CARVEDILOL 6.25 MG TABLET PO SCH (09:00)
[2018-07-09] MEDS: ASPIRIN EC 81 MG TABLET PO SCH (09:16)
[2018-07-09] MEDS: ROSUVASTATIN 20 MG TABLET PO SCH (09:16)
[2018-07-09] MEDS: FUROSEMIDE 40 MG TABLET PO SCH (09:16)
[2018-07-09] MEDS: AMIODARONE 200 MG TABLET PO SCH (09:16)
[2018-07-09] MEDS: PANTOPRAZOLE 40 MG TABLET PO SCH (09:16)
[2018-07-09] MEDS: SERTRALINE 50 MG TABLET PO SCH (09:17)
[2018-07-09] MEDS: ASCORBIC ACID 500 MG TABLET PO SCH (09:17)
[2018-07-09] MEDS ORDERED: LACTATED RINGERS 500 ML IV ONE ×2 (11:13→12:28)
[2018-07-09] MEDS: PANTOPRAZOLE 40 MG VIAL IV SCH (11:33)
[2018-07-09] MEDS ORDERED: METOPROLOL TARTRATE 5 MG/5 ML VIAL IV SCH (12:00)
[2018-07-09 13:35] LABS: Apearance,Urine CLOUDY (Clear); Bilirubin,Urine Negative (Negative); Blood, Urine Small mg/dL (Negative); Calcium Oxalate Crystals,Urine Occasional /HPF (Few); Glucose,Urine (UA) Negative (Negative); Ketones,Urine Negative (Negative); Nitrite,Urine Negative (Negative); Protein,Urine 30 MG/DL; RBC,Urine 22 /HPF (0-4); Squamous Epithelial Cell,Urine Occasional /HPF (0-10); Urine Color Amber (Yellow); Urine Specific Gravity 1.017 (1.001-1.035); Urine Urobilinogen < 2.0 EU/DL (0.2-1.0); WBC,Urine 6 /HPF (0-6)
[2018-07-09] MEDS ORDERED: PHENYLEPHRINE DRIP 40 MG/250 ML PREMIX IV PRN (13:41)
[2018-07-09] MEDS: PIPERACILLIN/TAZOBACTAM 3,375 MG in SODIUM CHLORIDE 0.9% 100 ML IV SCH ×2 (13:55→21:07)
[2018-07-09] MEDS: LACTATED RINGERS 1,000 ML IV SCH ×2 (13:55→20:31)
[2018-07-09] MEDS: NOREPINEPHRINE 8 MG in SODIUM CHLORIDE 0.9% 242 ML IV PRN ×2 (15:04→20:01)
[2018-07-09 15:57] LABS: Basophils % 0.2 % (0.0-0.8); Eosinophils % 0.1 % (0.00-10.9); Hematocrit 24.7 VOL% (42.0-52.0); Immature Granulocytes % 0.5 %; Lymphocytes # 2.1 10*3/uL (1.4-4.0); Lymphocytes % 11.3 % (21.2-54.2); Mean Corpuscular HGB Conc 32.4 GM/DL (32-36); Mean Corpuscular Hemoglobin 31 PG (27-34); Mean Corpuscular Volume 96.9 FL (87-102); Monocytes # 1.6 10*3/uL (0.11-0.8); Monocytes % 8.6 % (1.7-12.7); NRBC # 0.02 10*3/uL; Neutrophils # 14.6 10*3/uL (1.4-7.4); Neutrophils % 79.3 % (38.7-73.9); Platelet Count 207 T/CUMM (130-400); Red Blood Count 2.55 MC/CUMM (3.8-5.5); Red Cell Distribution Width 14.8 % (9.3-17.3); White Blood Count 18.5 T/CUMM (4-12)
[2018-07-09] MEDS ORDERED: WARFARIN 5 MG TABLET PO SCH ×2 (18:00)
[2018-07-09] MEDS: HYDROmorphone PCA 30 MG/30 ML SYRINGE IV SCH (19:10)
[2018-07-09 20:12] LABS: Hematocrit 22.9 VOL% (42.0-52.0); Hemoglobin 7.3 GM/DL (14.0-18.0)
[2018-07-09] MEDS ORDERED: SODIUM CHLORIDE 0.9% 1,000 ML IV PRN (20:20)
[2018-07-09] MEDS: ALBUTEROL/IPRATROPIUM 3 ML NEB RESP TX SCH (20:45)
[2018-07-10] MEDS: ALBUTEROL/IPRATROPIUM 3 ML NEB RESP TX SCH ×4 (00:15→19:40)
[2018-07-10] MEDS: NOREPINEPHRINE 16 MG in SODIUM CHLORIDE 0.9% 234 ML IV PRN ×2 (00:26→19:21)
[2018-07-10] MEDS: LACTATED RINGERS 1,000 ML IV SCH ×2 (02:28→17:51)
[2018-07-10 04:03] LABS: Basophils % 0.3 % (0.0-0.8); Eosinophils # 0.2 10*3/uL (0.0-0.87); Eosinophils % 1.6 % (0.00-10.9); Hematocrit 29.4 VOL% (42.0-52.0); Hemoglobin 9.6 GM/DL (14.0-18.0); Immature Granulocytes % 0.3 %; Immature Granulocytes Absolute 0.04 #; Lymphocytes # 1.1 10*3/uL (1.4-4.0); Lymphocytes % 9.5 % (21.2-54.2); Mean Corpuscular HGB Conc 32.7 GM/DL (32-36); Mean Corpuscular Hemoglobin 31 PG (27-34); Mean Corpuscular Volume 93.3 FL (87-102); Mean Platelet Volume 10.6 FL (9.6-12.0); Monocytes # 1.3 10*3/uL (0.11-0.8); Monocytes % 10.6 % (1.7-12.7); NRBC # 0.02 10*3/uL; Neutrophils # 9.2 10*3/uL (1.4-7.4); Neutrophils % 77.7 % (38.7-73.9); Platelet Count 172 T/CUMM (130-400); Red Blood Count 3.15 MC/CUMM (3.8-5.5); Red Cell Distribution Width 14.8 % (9.3-17.3); White Blood Count 11.8 T/CUMM (4-12)
[2018-07-10 04:17] LABS: INR 1.1; PT Patient Result 11.4 SECS
[2018-07-10 04:29] LABS: Calcium 7.2 MG/DL (8.5-10.1); Potassium 4.3 MMOL/L (3.5-5.1)
[2018-07-10 04:48] LABS: Platelet Estimate Adequate; Polychromasia Few
[2018-07-10] MEDS: HYDROmorphone PCA 30 MG/30 ML SYRINGE IV SCH (04:58)
[2018-07-10] MEDS: PIPERACILLIN/TAZOBACTAM 3,375 MG in SODIUM CHLORIDE 0.9% 100 ML IV SCH ×3 (05:38→22:50)
[2018-07-10] MEDS: PANTOPRAZOLE 40 MG VIAL IV SCH (09:45)
[2018-07-10] MEDS: ONDANSETRON 4 MG/2 ML VIAL IV PRN ×2 (09:48→19:44)
[2018-07-10] MEDS: PROMETHAZINE INJ 12.5 MG in SODIUM CHLORIDE 0.9% 50 ML IV PRN (16:21)
[2018-07-10] MEDS ORDERED: WARFARIN 5 MG TABLET PO SCH (18:00)
[2018-07-11] MEDS: LACTATED RINGERS 1,000 ML IV SCH ×4 (00:42→20:46)
[2018-07-11 04:15] LABS: Basophils % 0.5 % (0.0-0.8); Eosinophils # 0.3 10*3/uL (0.0-0.87); Eosinophils % 5.7 % (0.00-10.9); Hemoglobin 8.3 GM/DL (14.0-18.0); Immature Granulocytes % 0.8 %; Immature Granulocytes Absolute 0.05 #; Lymphocytes # 0.9 10*3/uL (1.4-4.0); Lymphocytes % 14.2 % (21.2-54.2); Mean Corpuscular HGB Conc 33.2 GM/DL (32-36); Mean Corpuscular Hemoglobin 31 PG (27-34); Mean Corpuscular Volume 93.6 FL (87-102); Mean Platelet Volume 11.1 FL (9.6-12.0); Monocytes % 16.3 % (1.7-12.7); NRBC # 0.02 10*3/uL; Neutrophils # 3.8 10*3/uL (1.4-7.4); Neutrophils % 62.5 % (38.7-73.9); Platelet Count 151 T/CUMM (130-400); Red Blood Count 2.67 MC/CUMM (3.8-5.5); Red Cell Distribution Width 15.2 % (9.3-17.3)
[2018-07-11 04:22] LABS: Calcium 7.6 MG/DL (8.5-10.1); Osmolality,Calculated 284.4 MOS/KG (273-304); Potassium 4.4 MMOL/L (3.5-5.1)
[2018-07-11] MEDS: PIPERACILLIN/TAZOBACTAM 3,375 MG in SODIUM CHLORIDE 0.9% 100 ML IV SCH ×3 (05:26→22:15)
[2018-07-11] MEDS: ONDANSETRON 4 MG/2 ML VIAL IV PRN (05:30)
[2018-07-11 05:45] LABS: Anisocytosis 2+; Band Neutrophils 14 % (0-10); Eosinophils 7 % (0-10); Lymphocytes 17 % (20-55); Macrocytosis 1+; Microcytosis 1+; Platelet Estimate Adequate; Polychromasia Few; Segmented Neutrophils 45 % (50-85); Total Cells Counted 100
[2018-07-11 05:46] LABS: Ovalocytes 1+
[2018-07-11] MEDS: ALBUTEROL/IPRATROPIUM 3 ML NEB RESP TX SCH ×4 (06:17→19:46)
[2018-07-11] MEDS: PANTOPRAZOLE 40 MG VIAL IV SCH (08:35)
[2018-07-11] MEDS: HYDROmorphone PCA 30 MG/30 ML SYRINGE IV SCH ×2 (11:14→17:26)
[2018-07-11 12:07] LABS: Hematocrit 25.7 VOL% (42.0-52.0); Hemoglobin 8.3 GM/DL (14.0-18.0)
[2018-07-11] MEDS ORDERED: WARFARIN 5 MG TABLET PO SCH (18:00)
[2018-07-12] MEDS: LACTATED RINGERS 1,000 ML IV SCH ×2 (02:35→14:57)
[2018-07-12] MEDS: ALBUTEROL/IPRATROPIUM 3 ML NEB RESP TX SCH ×4 (03:56→19:56)
[2018-07-12 04:08] LABS: Basophils % 0.7 % (0.0-0.8); Eosinophils # 0.4 10*3/uL (0.0-0.87); Eosinophils % 6.1 % (0.00-10.9); Hematocrit 22.8 VOL% (42.0-52.0); Hemoglobin 7.5 GM/DL (14.0-18.0); Immature Granulocytes % 1.7 %; Lymphocytes # 0.9 10*3/uL (1.4-4.0); Lymphocytes % 15.3 % (21.2-54.2); Mean Corpuscular HGB Conc 32.9 GM/DL (32-36); Mean Corpuscular Hemoglobin 32 PG (27-34); Mean Corpuscular Volume 95.8 FL (87-102); Mean Platelet Volume 10.5 FL (9.6-12.0); Monocytes # 0.9 10*3/uL (0.11-0.8); Monocytes % 14.6 % (1.7-12.7); Neutrophils # 3.6 10*3/uL (1.4-7.4); Neutrophils % 61.6 % (38.7-73.9); Platelet Count 165 T/CUMM (130-400); Red Blood Count 2.38 MC/CUMM (3.8-5.5); Red Cell Distribution Width 15.3 % (9.3-17.3); White Blood Count 5.9 T/CUMM (4-12)
[2018-07-12 04:46] LABS: Band Neutrophils 7 % (0-10); Eosinophils 9 % (0-10); Lymphocytes 26 % (20-55); Segmented Neutrophils 45 % (50-85); Total Cells Counted 100
[2018-07-12 04:47] LABS: Hypochromasia Slight; Platelet Estimate Normal
[2018-07-12 04:48] LABS: Microcytosis 1+; Ovalocytes 1+; Polychromasia Few
[2018-07-12] MEDS: PIPERACILLIN/TAZOBACTAM 3,375 MG in SODIUM CHLORIDE 0.9% 100 ML IV SCH ×3 (06:15→21:55)
[2018-07-12] MEDS: PANTOPRAZOLE 40 MG VIAL IV SCH (10:53)
[2018-07-12] MEDS: PROMETHAZINE INJ 12.5 MG in SODIUM CHLORIDE 0.9% 50 ML IV PRN (16:12)
[2018-07-12 16:50] LABS: Hematocrit 28.5 VOL% (42.0-52.0); Hemoglobin 8.7 GM/DL (14.0-18.0)
[2018-07-12] MEDS: HYDROmorphone PCA 30 MG/30 ML SYRINGE IV SCH (22:55)
[2018-07-13 03:21] LABS: Basophils # 0.1 10*3/uL (0.0-0.2); Basophils % 0.8 % (0.0-0.8); Eosinophils # 0.4 10*3/uL (0.0-0.87); Eosinophils % 4.5 % (0.00-10.9); Hematocrit 28.9 VOL% (42.0-52.0); Immature Granulocytes % 5.5 %; Immature Granulocytes Absolute 0.47 #; Lymphocytes % 11.4 % (21.2-54.2); Mean Corpuscular HGB Conc 31.1 GM/DL (32-36); Mean Corpuscular Hemoglobin 29 PG (27-34); Mean Corpuscular Volume 93.8 FL (87-102); Mean Platelet Volume 10.2 FL (9.6-12.0); Monocytes # 1.2 10*3/uL (0.11-0.8); NRBC # 0.03 10*3/uL; Neutrophils # 5.4 10*3/uL (1.4-7.4); Neutrophils % 63.8 % (38.7-73.9); Platelet Count 173 T/CUMM (130-400); Red Blood Count 3.08 MC/CUMM (3.8-5.5); Red Cell Distribution Width 16.2 % (9.3-17.3); White Blood Count 8.5 T/CUMM (4-12)
[2018-07-13 03:25] LABS: INR 1.2; PT Patient Result 12.7 SECS
[2018-07-13 03:51] LABS: Calcium 7.9 MG/DL (8.5-10.1); Osmolality,Calculated 283.3 MOS/KG (273-304); Potassium 4.4 MMOL/L (3.5-5.1)
[2018-07-13] MEDS: ALBUTEROL/IPRATROPIUM 3 ML NEB RESP TX SCH ×4 (04:21→19:30)
[2018-07-13 04:43] LABS: Eosinophils 2 % (0-10); Lymphocytes 13 % (20-55); Metamyelocytes 2 %; Myelocytes 1 %; Platelet Estimate Adequate; Polychromasia Few; Segmented Neutrophils 75 % (50-85); Total Cells Counted 100
[2018-07-13] MEDS: PIPERACILLIN/TAZOBACTAM 3,375 MG in SODIUM CHLORIDE 0.9% 100 ML IV SCH ×3 (05:39→21:14)
[2018-07-13] MEDS ORDERED: WARFARIN 10 MG TABLET PO SCH (09:00)
[2018-07-13] MEDS: PANTOPRAZOLE 40 MG VIAL IV SCH (11:15)
[2018-07-13] MEDS: WARFARIN 10 MG TABLET PO SCH (17:19)
[2018-07-13] MEDS: LACTATED RINGERS 1,000 ML IV SCH ×2 (21:15)
[2018-07-14] MEDS: ALBUTEROL/IPRATROPIUM 3 ML NEB RESP TX SCH ×4 (00:41→19:47)
[2018-07-14 04:25] LABS: Basophils # 0.1 10*3/uL (0.0-0.2); Basophils % 0.5 % (0.0-0.8); Eosinophils # 0.3 10*3/uL (0.0-0.87); Eosinophils % 2.6 % (0.00-10.9); Hematocrit 30.8 VOL% (42.0-52.0); Hemoglobin 9.7 GM/DL (14.0-18.0); Immature Granulocytes % 7.8 %; Immature Granulocytes Absolute 0.87 #; Lymphocytes # 1.1 10*3/uL (1.4-4.0); Lymphocytes % 10.2 % (21.2-54.2); Mean Corpuscular HGB Conc 31.5 GM/DL (32-36); Mean Corpuscular Hemoglobin 29 PG (27-34); Mean Corpuscular Volume 93.1 FL (87-102); Mean Platelet Volume 10.5 FL (9.6-12.0); Monocytes # 1.7 10*3/uL (0.11-0.8); Monocytes % 15.2 % (1.7-12.7); NRBC # 0.02 10*3/uL; Neutrophils # 7.1 10*3/uL (1.4-7.4); Neutrophils % 63.7 % (38.7-73.9); Platelet Count 203 T/CUMM (130-400); Red Blood Count 3.31 MC/CUMM (3.8-5.5); Red Cell Distribution Width 16.1 % (9.3-17.3); White Blood Count 11.1 T/CUMM (4-12)
[2018-07-14 04:45] LABS: INR 1.5; PT Patient Result 15.3 SECS; Partial Thromboplastin Time 38.1 SECS (0-40)
[2018-07-14 05:19] LABS: Band Neutrophils 4 % (0-10); Eosinophils 1 % (0-10); Hypochromasia 1+; Lymphocytes 10 % (20-55); Platelet Estimate Adequate; Segmented Neutrophils 72 % (50-85); Total Cells Counted 100
[2018-07-14 05:20] LABS: Microcytosis Slight
[2018-07-14] MEDS: PIPERACILLIN/TAZOBACTAM 3,375 MG in SODIUM CHLORIDE 0.9% 100 ML IV SCH ×3 (07:03→21:25)
[2018-07-14] MEDS: PANTOPRAZOLE 40 MG VIAL IV SCH (09:13)
[2018-07-14] MEDS: HEPARIN DRIP 25,000 UNITS/500 ML PREMIX IV SCH (09:58)
[2018-07-14] MEDS: HYDROmorphone PCA 30 MG/30 ML SYRINGE IV SCH (12:56)
[2018-07-14] MEDS ORDERED: WARFARIN 5 MG TABLET PO SCH (18:00)
[2018-07-14] MEDS: ONDANSETRON 4 MG/2 ML VIAL IV PRN (20:31)
[2018-07-14] MEDS: LACTATED RINGERS 1,000 ML IV SCH (20:32)
[2018-07-15] MEDS: HEPARIN DRIP 25,000 UNITS/500 ML PREMIX IV SCH ×2 (00:57→11:01)
[2018-07-15] MEDS: LACTATED RINGERS 1,000 ML IV SCH (01:02)
[2018-07-15] MEDS: ALBUTEROL/IPRATROPIUM 3 ML NEB RESP TX SCH ×4 (01:35→20:45)
[2018-07-15] MEDS: PIPERACILLIN/TAZOBACTAM 3,375 MG in SODIUM CHLORIDE 0.9% 100 ML IV SCH (05:05)
[2018-07-15 05:23] LABS: Basophils % 0.3 % (0.0-0.8); Eosinophils # 0.3 10*3/uL (0.0-0.87); Eosinophils % 3.1 % (0.00-10.9); Hematocrit 29.3 VOL% (42.0-52.0); Hemoglobin 9.2 GM/DL (14.0-18.0); Immature Granulocytes % 7.4 %; Immature Granulocytes Absolute 0.74 #; Lymphocytes # 1.3 10*3/uL (1.4-4.0); Lymphocytes % 12.9 % (21.2-54.2); Mean Corpuscular HGB Conc 31.4 GM/DL (32-36); Mean Corpuscular Hemoglobin 30 PG (27-34); Mean Corpuscular Volume 94.2 FL (87-102); Mean Platelet Volume 10.5 FL (9.6-12.0); Monocytes # 1.4 10*3/uL (0.11-0.8); Monocytes % 14.3 % (1.7-12.7); NRBC # 0.02 10*3/uL; Neutrophils # 6.2 10*3/uL (1.4-7.4); Platelet Count 216 T/CUMM (130-400); Red Blood Count 3.11 MC/CUMM (3.8-5.5)
[2018-07-15 05:38] LABS: Calcium 7.8 MG/DL (8.5-10.1); Osmolality,Calculated 276.5 MOS/KG (273-304); Potassium 3.9 MMOL/L (3.5-5.1)
[2018-07-15 05:42] LABS: INR 1.9
[2018-07-15 05:45] LABS: Band Neutrophils 5 % (0-10); Eosinophils 5 % (0-10); Hypochromasia 1+; Lymphocytes 11 % (20-55); Microcytosis Slight; Platelet Estimate Adequate; Segmented Neutrophils 62 % (50-85); Total Cells Counted 100
[2018-07-15] MEDS ORDERED: CALCIUM GLUCONATE 1,000 MG in SODIUM CHLORIDE 0.9% 100 ML IV ONE (08:08)
[2018-07-15] MEDS: POTASSIUM CHLORIDE 20 MEQ TABLET PO SCH ×2 (08:56→23:05)
[2018-07-15] MEDS: PANTOPRAZOLE 40 MG VIAL IV SCH (08:56)
[2018-07-15] MEDS: HYDROmorphone PCA 30 MG/30 ML SYRINGE IV SCH (10:44)
[2018-07-15 14:05] LABS: INR 2.1
[2018-07-15] MEDS: FUROSEMIDE 40 MG/4 ML VIAL IV SCH (16:15)
[2018-07-15] MEDS: WARFARIN 10 MG TABLET PO SCH (18:38)
[2018-07-15] MEDS: ONDANSETRON 4 MG/2 ML VIAL IV PRN (23:04)
[2018-07-16] MEDS: ALBUTEROL/IPRATROPIUM 3 ML NEB RESP TX SCH ×2 (01:10→07:10)
[2018-07-16 04:32] LABS: Basophils % 0.3 % (0.0-0.8); Eosinophils # 0.3 10*3/uL (0.0-0.87); Eosinophils % 2.9 % (0.00-10.9); Hematocrit 29.2 VOL% (42.0-52.0); Immature Granulocytes % 5.3 %; Immature Granulocytes Absolute 0.61 #; Lymphocytes # 1.4 10*3/uL (1.4-4.0); Lymphocytes % 12.2 % (21.2-54.2); Mean Corpuscular HGB Conc 30.8 GM/DL (32-36); Mean Corpuscular Hemoglobin 29 PG (27-34); Mean Corpuscular Volume 93.3 FL (87-102); Mean Platelet Volume 10.5 FL (9.6-12.0); Monocytes # 1.2 10*3/uL (0.11-0.8); Monocytes % 10.5 % (1.7-12.7); Neutrophils # 7.9 10*3/uL (1.4-7.4); Neutrophils % 68.8 % (38.7-73.9); Platelet Count 267 T/CUMM (130-400); Red Blood Count 3.13 MC/CUMM (3.8-5.5); Red Cell Distribution Width 15.7 % (9.3-17.3); White Blood Count 11.5 T/CUMM (4-12)
[2018-07-16 04:42] LABS: INR 2.3
[2018-07-16 04:48] LABS: PT Patient Result 23.3 SECS
[2018-07-16 05:03] LABS: Polychromasia Few
[2018-07-16 05:04] LABS: Calcium 7.8 MG/DL (8.5-10.1); Osmolality,Calculated 273.7 MOS/KG (273-304); Potassium 3.7 MMOL/L (3.5-5.1)
[2018-07-16 07:25] LABS: Band Neutrophils 3 % (0-10); Eosinophils 3 % (0-10); Lymphocytes 7 % (20-55); Segmented Neutrophils 77 % (50-85); Total Cells Counted 100
[2018-07-16 07:26] LABS: Hypochromasia 1+; Platelet Estimate Adequate
[2018-07-16] MEDS: FUROSEMIDE 40 MG/4 ML VIAL IV SCH (09:10)
[2018-07-16] MEDS: PANTOPRAZOLE 40 MG VIAL IV SCH (09:10)
[2018-07-16] MEDS: POTASSIUM CHLORIDE 20 MEQ TABLET PO SCH (09:11)
[2018-07-16 12:51] VITALS: BP 128/66
== END 2018-07-16 13:03 | disposition home or self-care (01) ==
LOC: N.ED 13:38 → N.EDINP 15:17 → N.4E 16:34 → N.TELEN 22:04 → N.CC 07-09 09:46 → N.5E 07-12 10:52
PROVIDERS: ADMIT Surgery; ATTEND Surgery

== ENCOUNTER 2019-01-13 12:28 | Observation (INO) ==
[2019-01-13] MEDS ORDERED: ALBUTEROL/IPRATROPIUM 3 ML NEB RESP TX STA (13:12)
[2019-01-13] MEDS ORDERED: FUROSEMIDE 100 MG/10 ML VIAL IV STA (13:12)
[2019-01-13] MEDS ORDERED: methylPREDNISolone SOD SUC 125 MG/2 ML VIAL IV STA (13:12)
[2019-01-13 13:31] LABS: Basophils # 0.1 10*3/uL (0.0-0.2); Basophils % 0.6 % (0.0-0.8); Eosinophils # 0.4 10*3/uL (0.0-0.87); Hematocrit 36.2 VOL% (42.0-52.0); Hemoglobin 11.8 GM/DL (14.0-18.0); Immature Granulocytes % 0.5 %; Immature Granulocytes Absolute 0.04 #; Lymphocytes # 1.8 10*3/uL (1.4-4.0); Mean Corpuscular HGB Conc 32.6 GM/DL (32-36); Mean Corpuscular Hemoglobin 31 PG (27-34); Mean Corpuscular Volume 94.3 FL (87-102); Mean Platelet Volume 10.7 FL (9.6-12.0); Monocytes # 0.8 10*3/uL (0.11-0.8); Neutrophils % 61.9 % (38.7-73.9); Platelet Count 237 T/CUMM (130-400); Red Blood Count 3.84 MC/CUMM (3.8-5.5); Red Cell Distribution Width 14.6 % (9.3-17.3); White Blood Count 8.1 T/CUMM (4-12)
[2019-01-13 13:40] LABS: INR 2.3
[2019-01-13 13:41] LABS: PT Patient Result 24.9 SECS
[2019-01-13 13:52] LABS: Albumin 4.2 G/DL (3.4-5.0); Bilirubin,Total 0.4 MG/DL (0.2-1.0); Calcium 8.4 MG/DL (8.5-10.1); Osmolality,Calculated 279.4 MOS/KG (273-304); Total Protein 7.3 G/DL (6.4-8.3)
[2019-01-13] MEDS ORDERED: ALBUTEROL 2.5 MG/3 ML NEB RESP TX PRN (15:04)
[2019-01-13] MEDS ORDERED: ACETAMINOPHEN 325 MG TABLET PO PRN (15:07)
[2019-01-13] MEDS ORDERED: DOCUSATE SODIUM 100 MG CAPSULE PO PRN (15:07)
[2019-01-13] MEDS ORDERED: BISACODYL 5 MG TABLET PO PRN (15:07)
[2019-01-13] MEDS ORDERED: ONDANSETRON 4 MG/2 ML VIAL IV PRN (15:07)
[2019-01-13] MEDS ORDERED: NITROGLYCERIN SL 0.4 MG TABLET SL PRN (15:14)
[2019-01-13] MEDS ORDERED: ALUMINUM/MAGNES/SIMETH MAX STR 30 ML UDCUP PO PRN (15:14)
[2019-01-13 16:55] LABS: Risk Ratio 2.89; Thyroid Stimulating Hormone 5.36 uIU/ml (0.358-3.74); VLDL CHOLESTEROL 34.8 MG/DL
[2019-01-13] MEDS ORDERED: LEVOFLOXACIN INJ 750 MG in PREMIX 1 EACH IV SCH (17:30)
[2019-01-13] MEDS ORDERED: ALBUTEROL/IPRATROPIUM 3 ML NEB RESP TX SCH (19:00)
[2019-01-13] MEDS: ASCORBIC ACID 500 MG TABLET PO SCH (20:37)
[2019-01-13] MEDS: CARVEDILOL 12.5 MG TABLET PO SCH (20:37)
[2019-01-13] MEDS ORDERED: LORazepam 1 MG TABLET PO SCH (21:00)
[2019-01-13] MEDS ORDERED: traZODone 50 MG TABLET PO SCH (21:00)
[2019-01-14] MEDS: ARFORMOTEROL 15 MCG/2 ML NEB RESP TX SCH ×2 (00:16→07:06)
[2019-01-14] MEDS: ALBUTEROL/IPRATROPIUM 3 ML NEB RESP TX SCH ×4 (00:16→10:41)
[2019-01-14] MEDS: BUDESONIDE 0.5 MG/2 ML NEB RESP TX SCH ×2 (00:16→07:06)
[2019-01-14] MEDS ORDERED: methylPREDNISolone SOD SUC 125 MG/2 ML VIAL IV SCH (02:00)
[2019-01-14 04:56] LABS: Basophils % 0.1 % (0.0-0.8); Hematocrit 35.3 VOL% (42.0-52.0); Hemoglobin 11.4 GM/DL (14.0-18.0); Immature Granulocytes % 0.6 %; Immature Granulocytes Absolute 0.08 #; Lymphocytes # 1.2 10*3/uL (1.4-4.0); Lymphocytes % 9.1 % (21.2-54.2); Mean Corpuscular HGB Conc 32.3 GM/DL (32-36); Mean Corpuscular Hemoglobin 30 PG (27-34); Mean Corpuscular Volume 93.9 FL (87-102); Mean Platelet Volume 11.1 FL (9.6-12.0); Monocytes # 0.2 10*3/uL (0.11-0.8); Monocytes % 1.3 % (1.7-12.7); Neutrophils # 11.4 10*3/uL (1.4-7.4); Neutrophils % 88.9 % (38.7-73.9); Platelet Count 236 T/CUMM (130-400); Red Blood Count 3.76 MC/CUMM (3.8-5.5); Red Cell Distribution Width 14.6 % (9.3-17.3); White Blood Count 12.8 T/CUMM (4-12)
[2019-01-14 05:05] LABS: INR 1.9; PT Patient Result 20.1 SECS
[2019-01-14 05:10] LABS: Calcium 8.6 MG/DL (8.5-10.1); Osmolality,Calculated 281.7 MOS/KG (273-304)
[2019-01-14 07:42] VITALS: BP 102/74
[2019-01-14] MEDS: ASCORBIC ACID 500 MG TABLET PO SCH (08:37)
[2019-01-14] MEDS: CARVEDILOL 12.5 MG TABLET PO SCH (08:38)
[2019-01-14] MEDS ORDERED: ROSUVASTATIN 20 MG TABLET PO SCH (09:00)
[2019-01-14] MEDS ORDERED: ASPIRIN EC 81 MG TABLET PO SCH (09:00)
[2019-01-14] MEDS ORDERED: LISINOPRIL 10 MG TABLET PO SCH (09:00)
[2019-01-14] MEDS ORDERED: AMIODARONE 200 MG TABLET PO SCH (09:00)
[2019-01-14] MEDS ORDERED: FERROUS SULFATE 325 MG TABLET PO SCH (09:00)
[2019-01-14] MEDS ORDERED: SERTRALINE 50 MG TABLET PO SCH (09:00)
[2019-01-14] MEDS ORDERED: THEOPHYLLINE ER (24 HR) 300 MG CAPSULE PO SCH (09:00)
[2019-01-14] MEDS ORDERED: PANTOPRAZOLE 40 MG TABLET PO SCH (09:00)
[2019-01-14] MEDS ORDERED: FUROSEMIDE 40 MG TABLET PO SCH (09:00)
[2019-01-14] MEDS ORDERED: NON-FORMULARY MEDICATION (Tiotropium Bromide [Spiriva Respimat] 2 PUFFS) INH SCH (09:00)
[2019-01-14] MEDS ORDERED: SPIRONOLACTONE 25 MG TABLET PO SCH (09:00)
[2019-01-14] MEDS ORDERED: WARFARIN 5 MG TABLET PO SCH (18:00)
[2019-01-15] MEDS ORDERED: WARFARIN 5 MG TABLET PO SCH (18:00)
== END 2019-01-14 11:20 | disposition home or self-care (01) ==
LOC: N.EDINP 12:28 → N.ED 12:28 → N.4E 17:57
PROVIDERS: ADMIT Hospitalist; ATTEND Hospitalist

== ENCOUNTER 2019-05-10 08:08 | Observation (INO) ==
[2019-05-10] MEDS ORDERED: ASPIRIN 325 MG TABLET PO STA (08:25)
[2019-05-10 08:42] LABS: Basophils # 0.1 10*3/uL (0.0-0.2); Basophils % 0.6 % (0.0-0.8); Eosinophils # 0.5 10*3/uL (0.0-0.87); Hematocrit 38.3 VOL% (42.0-52.0); Hemoglobin 12.1 GM/DL (14.0-18.0); Immature Granulocytes % 0.9 %; Immature Granulocytes Absolute 0.07 #; Lymphocytes # 1.7 10*3/uL (1.4-4.0); Lymphocytes % 21.7 % (21.2-54.2); Mean Corpuscular HGB Conc 31.6 GM/DL (32-36); Mean Corpuscular Volume 95.5 FL (87-102); Mean Platelet Volume 10.9 FL (9.6-12.0); Monocytes % 9.2 % (1.7-12.7); Neutrophils % 61.6 % (38.7-73.9); Platelet Count 242 T/CUMM (130-400); Red Blood Count 4.01 MC/CUMM (3.8-5.5); Red Cell Distribution Width 13.9 % (9.3-17.3)
[2019-05-10] MEDS ORDERED: SODIUM CHLORIDE 0.9% 1,000 ML IV STA (08:53)
[2019-05-10 08:59] LABS: PT Patient Result 32.7 SECS; Partial Thromboplastin Time 45.8 SECS (0-40)
[2019-05-10 09:06] LABS: Alanine Aminotransferase 31 U/L (16-61); Albumin 4.2 G/DL (3.4-5.0); Alkaline Phosphatase 79 U/L (45-117); Aspartate Amino Transferase 19 U/L (0-37); Bilirubin,Total < 0.39 MG/DL (0.2-1.0); Blood Urea Nitrogen 22 MG/DL (7-18); Calcium 9.3 MG/DL (8.5-10.1); Glucose 120 MG/DL (74-106); Osmolality,Calculated 278.7 MOS/KG (273-304); Total Protein 6.9 G/DL (6.4-8.3)
[2019-05-10] MEDS ORDERED: DOCUSATE SODIUM 100 MG CAPSULE PO PRN (11:04)
[2019-05-10] MEDS ORDERED: ACETAMINOPHEN 325 MG TABLET PO PRN (11:04)
[2019-05-10] MEDS ORDERED: ONDANSETRON 4 MG/2 ML VIAL IV PRN (11:04)
[2019-05-10 11:51] LABS: Risk Ratio 3.52; Thyroid Stimulating Hormone 4.67 uIU/ml (0.358-3.74); VLDL CHOLESTEROL 44.2 MG/DL
[2019-05-10] MEDS ORDERED: traZODone 50 MG TABLET PO PRN (14:51)
[2019-05-10] MEDS ORDERED: WARFARIN 5 MG TABLET PO SCH (14:51)
[2019-05-10] MEDS: CARVEDILOL 6.25 MG TABLET PO SCH ×2 (15:08→21:10)
[2019-05-10] MEDS ORDERED: LORazepam 1 MG TABLET PO SCH (21:00)
[2019-05-10] MEDS: ASCORBIC ACID 500 MG TABLET PO SCH (21:10)
[2019-05-10 22:20] LABS: Apearance,Urine CLEAR (Clear); Bilirubin,Urine Negative (Negative); Blood, Urine Negative (Negative); Glucose,Urine (UA) Negative (Negative); Ketones,Urine Negative (Negative); Mucus,Urine Occasional /LPF (Occasional); Nitrite,Urine Negative (Negative); Protein,Urine Negative; RBC,Urine 1 /HPF (0-4); Urine Color Yellow (Yellow); Urine Specific Gravity 1.044 (1.001-1.035); Urine Urobilinogen < 2.0 EU/DL (0.2-1.0); WBC,Urine <1 /HPF (0-6)
[2019-05-10 22:50] LABS: Barbiturates Screen,Urine Negative (Negative); Benzodiazepines Screen,Urine Negative (Negative); Cannabinoid Screen,Urine Negative (Negative); Opiate Screen,Urine Negative (Negative); Phencyclidine Screen,Urine Negative (Negative)
[2019-05-11 05:08] LABS: Basophils # 0.1 10*3/uL (0.0-0.2); Basophils % 0.8 % (0.0-0.8); Eosinophils # 0.5 10*3/uL (0.0-0.87); Eosinophils % 6.4 % (0.00-10.9); Hematocrit 36.3 VOL% (42.0-52.0); Hemoglobin 11.8 GM/DL (14.0-18.0); Immature Granulocytes % 0.6 %; Immature Granulocytes Absolute 0.05 #; Lymphocytes # 1.9 10*3/uL (1.4-4.0); Lymphocytes % 24.4 % (21.2-54.2); Mean Corpuscular HGB Conc 32.5 GM/DL (32-36); Mean Corpuscular Volume 95.5 FL (87-102); Mean Platelet Volume 11.2 FL (9.6-12.0); Monocytes % 9.5 % (1.7-12.7); Neutrophils % 58.3 % (38.7-73.9); Platelet Count 217 T/CUMM (130-400)
[2019-05-11 05:26] LABS: Albumin 3.7 G/DL (3.4-5.0); Bilirubin,Total 0.6 MG/DL (0.2-1.0); Calcium 8.8 MG/DL (8.5-10.1); Osmolality,Calculated 282.4 MOS/KG (273-304); Total Protein 6.5 G/DL (6.4-8.3)
[2019-05-11 08:04] VITALS: BP 130/77
[2019-05-11] MEDS: ASCORBIC ACID 500 MG TABLET PO SCH (08:39)
[2019-05-11] MEDS: CARVEDILOL 6.25 MG TABLET PO SCH (08:39)
[2019-05-11] MEDS ORDERED: ROSUVASTATIN 20 MG TABLET PO SCH (09:00)
[2019-05-11] MEDS ORDERED: NF- (Fluticasone-Umeclidin-Vilanter [Trelegy Ellipta] 1 inh) INH SCH (09:00)
[2019-05-11] MEDS ORDERED: PANTOPRAZOLE 40 MG TABLET PO SCH (09:00)
[2019-05-11] MEDS ORDERED: ASPIRIN EC 81 MG TABLET PO SCH (09:00)
[2019-05-11] MEDS ORDERED: NON-FORMULARY MEDICATION (Omeprazole 20 MG) PO SCH (09:00)
[2019-05-11] MEDS ORDERED: SERTRALINE 50 MG TABLET PO SCH (09:00)
[2019-05-11] MEDS ORDERED: WARFARIN 5 MG TABLET PO SCH (11:03)
== END 2019-05-11 11:18 | disposition home or self-care (01) ==
LOC: EDUNIT# → EDBD → N.ED 08:08 → SUATTDRO 09:55 → N.EDINP 09:55 → INTOOBSV 09:55 → N.TELEN 13:26
PROVIDERS: ADMIT Family Medicine; ATTEND Internal Medicine

== ENCOUNTER 2020-04-02 11:59 | Observation (INO) ==
[2020-04-02] MEDS ORDERED: ASPIRIN 325 MG TABLET PO STA (12:22)
[2020-04-02] MEDS: NITROGLYCERIN SL 0.4 MG TABLET SL PRN ×2 (12:31→14:53)
[2020-04-02 12:45] LABS: Basophils # 0.1 10*3/uL (0.0-0.2); Basophils % 0.6 % (0.0-0.8); Eosinophils # 0.6 10*3/uL (0.0-0.87); Eosinophils % 5.4 % (0.00-10.9); Hemoglobin 13.4 GM/DL (14.0-18.0); Immature Granulocytes % 0.7 %; Immature Granulocytes Absolute 0.08 #; Lymphocytes # 2.2 10*3/uL (1.4-4.0); Lymphocytes % 19.4 % (21.2-54.2); Mean Corpuscular HGB Conc 33.5 GM/DL (32-36); Mean Corpuscular Volume 90.7 FL (87-102); Monocytes % 7.5 % (1.7-12.7); Neutrophils % 66.4 % (38.7-73.9); Platelet Count 213 T/CUMM (130-400); Red Blood Count 4.41 MC/CUMM (3.8-5.5); Red Cell Distribution Width 13.5 % (9.3-17.3); White Blood Count 11.1 T/CUMM (4-12)
[2020-04-02 13:01] LABS: INR 3.1
[2020-04-02 13:05] LABS: PT Patient Result 31.7 SECS (9.8-11.9)
[2020-04-02 13:18] LABS: Calcium 8.6 MG/DL (8.5-10.1); Osmolality,Calculated 277.8 MOS/KG (273-304)
[2020-04-02] MEDS ORDERED: NITROGLYCERIN 2% OINT 1 INCH/GM PACK TOP STA (14:49)
[2020-04-02] MEDS ORDERED: NITROGLYCERIN 2% OINT 1 INCH/GM PACK TOP ONE (14:50)
[2020-04-02] MEDS ORDERED: MORPHINE 4 MG/1 ML VIAL IV PRN (14:54)
[2020-04-02] MEDS ORDERED: MAGNESIUM SULF RIDER 4 GM in PREMIX 1 EACH IV PRN (14:54)
[2020-04-02] MEDS ORDERED: ONDANSETRON 4 MG/2 ML VIAL IV PRN (14:54)
[2020-04-02] MEDS ORDERED: MAGNESIUM SULF RIDER 2 GM in PREMIX 1 EACH IV PRN (14:54)
[2020-04-02] MEDS ORDERED: NITROGLYCERIN SL 0.4 MG TABLET SL PRN (14:57)
[2020-04-02] MEDS: SODIUM CHLORIDE 0.45% 1,000 ML IV SCH (16:37)
[2020-04-02] MEDS ORDERED: WARFARIN 5 MG TABLET PO SCH (18:00)
[2020-04-02] MEDS ORDERED: NITROGLYCERIN 2% OINT 1 INCH/GM PACK TOP SCH (18:00)
[2020-04-02] MEDS: ROSUVASTATIN 20 MG TABLET PO SCH (20:08)
[2020-04-02] MEDS: ASCORBIC ACID 500 MG TABLET PO SCH (20:08)
[2020-04-02] MEDS: carvediloL 12.5 MG TABLET PO SCH (20:09)
[2020-04-03] MEDS: SODIUM CHLORIDE 0.45% 1,000 ML IV SCH ×2 (05:42→18:00)
[2020-04-03 06:14] LABS: Basophils # 0.1 10*3/uL (0.0-0.2); Basophils % 0.6 % (0.0-0.8); Eosinophils # 0.6 10*3/uL (0.0-0.87); Eosinophils % 6.3 % (0.00-10.9); Hematocrit 38.6 VOL% (42.0-52.0); Hemoglobin 12.8 GM/DL (14.0-18.0); Immature Granulocytes % 0.5 %; Immature Granulocytes Absolute 0.05 #; Lymphocytes # 2.2 10*3/uL (1.4-4.0); Lymphocytes % 22.9 % (21.2-54.2); Mean Corpuscular HGB Conc 33.2 GM/DL (32-36); Mean Corpuscular Volume 91.9 FL (87-102); Mean Platelet Volume 11.6 FL (9.6-12.0); Monocytes % 7.2 % (1.7-12.7); Neutrophils % 62.5 % (38.7-73.9); Platelet Count 192 T/CUMM (130-400); Red Cell Distribution Width 13.6 % (9.3-17.3); White Blood Count 9.6 T/CUMM (4-12)
[2020-04-03 06:31] LABS: Alanine Aminotransferase 31 U/L (16-61); Albumin 3.7 G/DL (3.4-5.0); Alkaline Phosphatase 80 U/L (45-117); Aspartate Amino Transferase 28 U/L (0-37); Bilirubin,Total < 0.39 MG/DL (0.2-1.0); Blood Urea Nitrogen 17 MG/DL (7-18); Calcium 8.4 MG/DL (8.5-10.1); Estimated Glom Filtration Rate 95 ML/MIN; Glucose 148 MG/DL (74-106); Osmolality,Calculated 277.8 MOS/KG (273-304); Total Protein 6.9 G/DL (6.4-8.3)
[2020-04-03 06:33] LABS: Risk Ratio 3.7
[2020-04-03 06:34] LABS: Troponin I 0.028 NG/ML (0.00-0.045)
[2020-04-03 06:39] LABS: Apearance,Urine CLEAR (Clear); Bilirubin,Urine Negative (Negative); Blood, Urine Negative (Negative); Glucose,Urine (UA) Negative (Negative); Ketones,Urine Negative (Negative); Nitrite,Urine Negative (Negative); Protein,Urine Negative; RBC,Urine <1 /HPF (0-4); Squamous Epithelial Cell,Urine Occasional /HPF (0-10); Urine Color Yellow (Yellow); Urine Specific Gravity 1.018 (1.001-1.035); Urine Urobilinogen < 2.0 EU/DL (0.2-1.0); WBC,Urine 1 /HPF (0-6)
[2020-04-03 06:40] LABS: INR 3.1
[2020-04-03 06:41] LABS: PT Patient Result 31.7 SECS (9.8-11.9)
[2020-04-03] MEDS ORDERED: FUROSEMIDE 40 MG TABLET PO SCH (09:00)
[2020-04-03] MEDS ORDERED: NF- (Fluticasone-Umeclidin-Vilanter [Trelegy Ellipta] 1 inh) INH SCH (09:00)
[2020-04-03] MEDS: ASCORBIC ACID 500 MG TABLET PO SCH ×2 (09:44→20:48)
[2020-04-03] MEDS: ASPIRIN EC 81 MG TABLET PO SCH (09:45)
[2020-04-03] MEDS: carvediloL 12.5 MG TABLET PO SCH ×2 (09:45→20:48)
[2020-04-03] MEDS: lisinopriL 10 MG TABLET PO SCH (09:45)
[2020-04-03] MEDS: SPIRONOLACTONE 25 MG TABLET PO SCH (09:45)
[2020-04-03] MEDS: PANTOPRAZOLE 40 MG TABLET PO SCH (09:45)
[2020-04-03] MEDS: SERTRALINE 50 MG TABLET PO SCH (09:45)
[2020-04-03] MEDS ORDERED: diphenhydrAMINE CAP 25 MG CAPSULE PO ONE (12:05)
[2020-04-03] MEDS ORDERED: DIAZEPAM 5 MG TABLET PO ONE (12:05)
[2020-04-03] MEDS ORDERED: MAGNESIUM SULF RIDER 2 GM in PREMIX 1 EACH IV PRN (12:05)
[2020-04-03] MEDS ORDERED: POTASSIUM CHLORIDE RIDER 10 MEQ in PREMIX 1 EACH IV PRN (12:05)
[2020-04-03] MEDS ORDERED: LIDOCAINE 1% 20 ML VIAL ONE (16:20)
[2020-04-03] MEDS ORDERED: HEPARIN/NACL 0.9% 2 UNITS/ML 1,000 ML IV ONE (16:20)
[2020-04-03] MEDS ORDERED: MIDAZOLAM 2 MG/2 ML VIAL ONE (16:47)
[2020-04-03] MEDS ORDERED: VERAPAMIL 5 MG/2 ML VIAL ONE (16:47)
[2020-04-03] MEDS ORDERED: fentaNYL 100 MCG/2 ML VIAL ONE (16:47)
[2020-04-03] MEDS ORDERED: NITROGLYCERIN DRIP 50 MG/250 ML BOTTLE IV ONE (16:47)
[2020-04-03] MEDS ORDERED: ENOXAPARIN 60 MG/0.6 ML SYRINGE ONE (16:56)
[2020-04-03] MEDS ORDERED: WARFARIN 5 MG TABLET PO SCH (18:00)
[2020-04-03] MEDS: ROSUVASTATIN 20 MG TABLET PO SCH (20:48)
[2020-04-04] MEDS: SODIUM CHLORIDE 0.45% 1,000 ML IV SCH (04:27)
[2020-04-04 05:01] LABS: Basophils # 0.1 10*3/uL (0.0-0.2); Basophils % 0.7 % (0.0-0.8); Eosinophils # 0.6 10*3/uL (0.0-0.87); Eosinophils % 6.9 % (0.00-10.9); Hematocrit 36.3 VOL% (42.0-52.0); Hemoglobin 11.8 GM/DL (14.0-18.0); Immature Granulocytes % 0.5 %; Immature Granulocytes Absolute 0.04 #; Lymphocytes # 1.7 10*3/uL (1.4-4.0); Mean Corpuscular HGB Conc 32.5 GM/DL (32-36); Mean Corpuscular Volume 92.8 FL (87-102); Mean Platelet Volume 11.4 FL (9.6-12.0); Monocytes % 7.4 % (1.7-12.7); Neutrophils % 64.5 % (38.7-73.9); Platelet Count 181 T/CUMM (130-400); Red Blood Count 3.91 MC/CUMM (3.8-5.5); Red Cell Distribution Width 13.7 % (9.3-17.3); White Blood Count 8.4 T/CUMM (4-12)
[2020-04-04 05:36] LABS: Calcium 8.4 MG/DL (8.5-10.1); Osmolality,Calculated 283.5 MOS/KG (273-304)
[2020-04-04 07:36] VITALS: BP 121/65
[2020-04-04] MEDS: ASCORBIC ACID 500 MG TABLET PO SCH (08:28)
[2020-04-04] MEDS: SPIRONOLACTONE 25 MG TABLET PO SCH (08:28)
[2020-04-04] MEDS: PANTOPRAZOLE 40 MG TABLET PO SCH (08:28)
[2020-04-04] MEDS: SERTRALINE 50 MG TABLET PO SCH (08:29)
[2020-04-04] MEDS: ASPIRIN EC 81 MG TABLET PO SCH (08:29)
[2020-04-04] MEDS: lisinopriL 10 MG TABLET PO SCH (08:29)
[2020-04-04] MEDS: carvediloL 12.5 MG TABLET PO SCH (08:29)
== END 2020-04-04 10:27 | disposition home or self-care (01) ==
LOC: N.EDINP 11:59 → N.ED 11:59 → N.TELEN 15:37
PROVIDERS: ADMIT Internal Medicine Cardiovascular Disease; ATTEND Internal Medicine Cardiovascular Disease